=== PATIENT | male | born 1960 | race Caucasian/White ===

== ENCOUNTER 2018-01-21 16:54 | Outpatient (REF) | payer OTHER, SELFPAY ==
[2018-01-21 21:07] LABS: Anion Gap 9.7 mmol/L (3-11); BUN 23 mg/dL (7-18); CO2 28.3 mmol/L (21.0-32.0); CREATININE 1.12 mg/dL (0.70-1.30); Calcium 9.1 mg/dL (8.5-10.1); Chloride 100 mmol/L (98-107); Cholesterol 123 mg/dL (50-200); Glucose 93 mg/dL (70-100); HDL Cholesterol 33 mg/dL (40-60); LDL CHOLESTEROL 75 mg/dL (<100); Potassium 3.8 mmol/L (3.5-5.1); Sodium 138 mmol/L (136-145); Triglyceride 127 mg/dL (30-150)
== END 2018-01-21 17:14 ==
LOC: NCHCN 16:54
PROVIDERS: PCP Internal Medicine; Visit Provider Internal Medicine
DX: I10 Essential (primary) hypertension (principal); E78.5 Hyperlipidemia, unspecified
CPT/HCPCS: 80048; 80061; 83721

== ENCOUNTER 2019-03-16 14:21 | Outpatient (REF) | payer OTHER, SELFPAY ==
[2019-03-16 22:37] LABS: Anion Gap 7.9 mmol/L (3-11); BUN 18 mg/dL (7-18); CO2 29.1 mmol/L (21.0-32.0); CREATININE 0.98 mg/dL (0.70-1.30); Calcium 9.5 mg/dL (8.5-10.1); Chloride 102 mmol/L (98-107); Glucose 98 mg/dL (70-100); Potassium 4.2 mmol/L (3.5-5.1); Sodium 139 mmol/L (136-145)
== END 2019-03-16 14:41 ==
LOC: NCHCN 14:21
PROVIDERS: PCP Internal Medicine; Visit Provider Internal Medicine
DX: I10 Essential (primary) hypertension (principal); E78.5 Hyperlipidemia, unspecified
CPT/HCPCS: 80048

== ENCOUNTER 2020-01-16 14:11 | Outpatient (CLI) | payer OTHER, SELFPAY ==
--- NOTE | 2020-01-16 | DI.US_ITS ---
EXAM: US LOWER EXTREMITY VENOUS RT CLINICAL HISTORY: PHLEBITIS I80.9. TECHNIQUE: Lower extremity venous ultrasound performed using grayscale, color-flow, and spectral Do ppler analysis. COMPARISON: No exams were available for comparison FINDINGS: The common femoral, femoral and popliteal veins demonstrate normal compressibility, augmentation, and color Doppler. The posterior tibial veins are patent. No saphenous vein thrombosis or other superfi cial venous thrombosis is seen. There is a 1.7 centimeter Lee's cyst. The area of the patient's p ain in the posterior calf, there is a dilated superficial varicosity which does not show thrombus. IMPRESSION: Small Lee's cyst. Dilated superficial calf vein. No evidence of DVT. DATA REPOSITORY:
== END 2020-01-16 14:31 ==
PROVIDERS: PCP Internal Medicine; Visit Provider Internal Medicine
DX: M71.21 Synovial cyst of popliteal space [Baker], right knee (principal); M79.661 Pain in right lower leg
CPT/HCPCS: 93971

== ENCOUNTER 2020-07-30 18:56 | Outpatient (REF) | payer OTHER, SELFPAY ==
[2020-07-30 22:04] LABS: HCT 43.6 % (40.0-50.0); HGB 14.9 g/dL (13.5-17.5); MCH 32.7 pg (27.0-33.0); MCHC 34.2 % (32.0-36.0); MCV 95.6 fL (80-95); MPV 9.2 fL (8.0-11.0); Platelet Count 207 10^3/uL (130-400); RBC 4.56 10^6/uL (4.36-5.78); RDW 11.9 % (11.8-14.1); RDW-SD 41.6 fL; WBC 6.28 10^3/uL (4.4-10.8)
[2020-07-30 22:39] LABS: Anion Gap 11.9 mmol/L (3-11); BUN 15 mg/dL (7-18); CO2 27.1 mmol/L (21.0-32.0); CREATININE 1.1 mg/dL (0.70-1.30); Calcium 9.2 mg/dL (8.5-10.1); Calculated LDL 110 mg/dL (<100); Chloride 102 mmol/L (98-107); Cholesterol 193 mg/dL (<200); Glucose 103 mg/dL (74-106); HDL Cholesterol 60 mg/dL (40-60); Potassium 3.7 mmol/L (3.5-5.1); Sodium 141 mmol/L (136-145); TSH 2.17 uIU/mL (0.36-3.74); Triglyceride 115 mg/dL (<150); Vitamin B12 339 pg/mL (193-986)
[2020-07-30 22:58] LABS: NT-proBNP 42 pg/mL (<300)
== END 2020-07-30 18:57 | disposition home or self-care (01) ==
LOC: NCHCN 18:56
PROVIDERS: PCP Internal Medicine; Visit Provider Internal Medicine
DX: R06.09 Other forms of dyspnea (principal); R03.0 Elevated blood-pressure reading, without diagnosis of hypertension; R20.2 Paresthesia of skin
CPT/HCPCS: 80048; 80061; 85027; 82607; 83880; 84443

== ENCOUNTER 2020-07-31 11:12 | Observation (INO) | payer OTHER, SELFPAY ==
[2020-07-31] VITALS (49 sets, daily range): BP systolic 110–160; BP diastolic 65–92; PULSE 56–84; RESP 14–20; TEMP 36.3–36.7; O2SAT 89–99
--- NOTE | 2020-07-31 11:00 | RT.EKG_ITS ---
APPROVED REPORT Exam: Resting ECG Patient Location: E HR:70 bpm ECG Measurements Heart Rate 70 AXIS KS 172 P 64 QRSd 110 QRS 61 QT 386 T 61 QTc 418 Conclusion Sinus rhythm...normal P axis, V-rate 60- 99
[2020-07-31 11:43] LABS: Abs Immature Grans 0.02 10^3/uL (0.0-0.06); Absolute Basophil Count 0.02 10^3/uL (0.0-0.2); Absolute Eosinophil Count 0.05 10^3/uL (0.0-0.7); Absolute Lymphocyte Count 1.23 10^3/uL (1.2-3.4); Absolute Monocyte Count 0.63 10^3/uL (0.1-0.8); Absolute Neutrophil Count 5.04 10^3/uL (1.2-6.7); Basophils % 0.3; Eosinophils % 0.7; HCT 43.7 % (40.0-50.0); HGB 15.3 g/dL (13.5-17.5); Immature Grans % 0.3; Lymphocytes % 17.6; MCH 32.8 pg (27.0-33.0); MCV 93.8 fL (80-95); MPV 8.8 fL (8.0-11.0); Neutrophils % 72.1; Nucleated RBC 0 %; Platelet Count 191 10^3/uL (130-400); RBC 4.66 10^6/uL (4.36-5.78); RDW 11.9 % (11.8-14.1); WBC 6.99 10^3/uL (4.4-10.8)
[2020-07-31 11:57] LABS: PTT Activated 24.1 sec (21.0-27.5); Prothrombin Time 9.6 sec (9.3-11.0)
[2020-07-31 11:59] LABS: ALT 37 U/L (16-63); AST 16 U/L (15-37); Albumin 4.3 g/dL (3.4-5.0); Alkaline Phosphatase 91 U/L (46-116); Anion Gap 10.5 mmol/L (3-11); BUN 15 mg/dL (7-18); Bilirubin, Total 0.8 mg/dL (0.2-1.0); CO2 27.5 mmol/L (21.0-32.0); Calcium 9.2 mg/dL (8.5-10.1); Chloride 97 mmol/L (98-107); Glucose 169 mg/dL (74-106); Magnesium 2.1 mg/dL (1.8-2.4); Potassium 3.8 mmol/L (3.5-5.1); Sodium 135 mmol/L (136-145); Total Protein 7.9 g/dL (6.4-8.2)
[2020-07-31 12:00] LABS: Troponin I < 0.05 ng/mL (<0.06)
--- NOTE | 2020-07-31 12:15 | DI.RAD_ITS ---
EXAM: XR CHEST 2V PA LATERAL CLINICAL HISTORY: chest tightness. TECHNIQUE: 2D digital imaging was performed. COMPARISON: CR CHEST 2 VIEWS PA,LAT from 07/24/2016 FINDINGS: Heart size is normal. The mediastinum is not widened. Lungs are clear. No infiltrates nor pleural effusions. Scalloping of the left hemidiaphragm is again noted. IMPRESSION: No acute pulmonary findings. DATA REPOSITORY: RADIATION DOSE DELIVERED:
--- NOTE | 2020-07-31 12:15 | RT.EKG_ITS ---
APPROVED REPORT Exam: Resting ECG Patient Location: E HR:72 bpm ECG Measurements Heart Rate 72 AXIS RI 179 P 50 QRSd 111 QRS 58 QT 404 T 58 QTc 442 Conclusion Sinus rhythm...normal P axis, V-rate 60- 99
[2020-07-31] MEDS: Aspirin 325 MG TAB PO (13:15)
[2020-07-31 14:00] LABS: Troponin I < 0.05 ng/mL (<0.06)
--- NOTE | 2020-07-31 14:37 | ED.GENADUL_ITS ---
Discharge Plan Disposition Condition: Good Discharge Details Chief Complaint: Chest Pain Admit Date/Time: 07/31/20 15:15 Admit Provider: Codie Mart Attending Provider: Codie Mart Primary Care Provider: Lambert Gates ED Provider: Maulik Kumari Discharge Instructions Activity:: Activity as Tolerated Equipment/Supplies:: No Equipment Needed Diet:: Low Sodium Discharge Orders Discharge Orders: Discharge Order (Routine); Ordered 08/01/20 Ordered By: Brit Ortiz Discharge Data Discharge Date/Time-TO BE ENTERED AT DEPARTURE: 07/31/20 15:46 Medical Decision Making 59-year-old male with history of hyperlipidemia, hypertension, positive family history for coronary artery disease, here with chest tightness intermittent over the past 1 to 2 weeks. Discomfort and radiating to left shoulder and upper arm.. Concern for ACS. Consider musculoskeletal. Low likelihood for pulmonary embolism.. Screening ECG reviewed and interpreted by me: No STEMI, please see report. Labs reviewed and initial troponin negative. D-dimer negative. Chest x-ray was reviewed and interpreted by radiology: Negative for acute process. Normal mediastinum. I called and spoke with on-call hospitalist, discussed ED presentation course. Hospitalist will accept patient for admission. Care transition to hospitalist service at time of admission. Diagnosis: Chest pain, hypertension Disposition: Admission Condition: Serious Lab Data Lab results reviewed: Yes I reviewed the patient's lab results. HPI General Date/Time Provider Initiated Documentation: 07/31/20 11:27 . Limitations to Documentation: no limitations . HPI Narrative: 59-year-old male with history of hypertension, hyperlipidemia, positive family history for coronary artery disease, here with chief complaint of chest pain. Patient notes chest pain for the past 1 to 2 weeks, intermittent, described as a tightness, moderate, no modifiers. Discomfort intermittently radiates to neck left shoulder and upper arm. No associated shortness of breath. No associated leg swelling or calf pain. No recent immobility. Patient does note associated general malaise with some mild intermittent dizziness. Covid screening negative. Related Data Home Medications Medication Instructions Recorded Confirmed amlodipine 10 mg PO DAILY 07/31/20 07/31/20 atorvastatin 40 mg PO DAILY 07/31/20 07/31/20 hydrochlorothiazide 12.5 mg PO DAILY 07/31/20 07/31/20 Allergies Allergy/AdvReac Type Severity Reaction Status Date / Time No Known Allergies Allergy Unverified 07/31/20 11:29 General Stated Complaint: Chest Pain OLIVERIO: 2 Review of Systems All systems reviewed & are unremarkable except as noted in HPI and below Constitutional Constitutional: Denies fever(s) Cardiovascular Cardiovascular: Reports chest pain and Denies dyspnea Respiratory Respiratory: Denies dyspnea PFSH Medical History Hyperlipidemia Hypertension Right knee DJD Surgical History S/P right knee arthroscopy Family History Other Heart disease Social History Smoking/Tobacco Use Status: Never Smoking risk assessment performed?: Yes Alcohol Intake: current Alcohol Intake frequency: 0-2 drinks per day Alcohol type: beer Substance use type: does not use Household members: spouse Exam Const General: cooperative and no acute distress HENMT Head: normocephalic Mouth: moist mucous membranes Eyes Conjunctivae: normal conjunctivae Sclera: normal sclerae Neck Neck: trachea midline and supple Resp Auscultation: clear to auscultation bilaterally, no rales, no rhonchi and no wheezes Cardio Rate: regular rate and not tachycardic Rhythm: regular rhythm GI Palpation: soft, not firm, no guarding, no masses, not rigid and nontender Skin General skin exam: no rashes or lesions noted Neuro General: patient alert, patient awake, patient oriented x3 and tone normal Extrem General: no calf tenderness and no edema Psych Appearance: grossly normal Mental Status: mental status grossly normal Speech and Movement: speech and movement normal Course Vital Signs Vital signs: Vital Signs Respiratory Rate 17 07/31/20 11:16 Pulse Oximetry 98 07/31/20 11:16 Temperature 36.7 C 07/31/20 11:24 Temperature Source Skin 07/31/20 11:24 Pulse 73 07/31/20 12:30 Pulse 77 07/31/20 12:40 Respiratory Rate 18 07/31/20 12:40 Respiratory Effort Non-Labored 07/31/20 11:31 Respiratory Depth Normal 07/31/20 11:31 Respiratory Pattern Normal 07/31/20 11:31 Blood Pressure 142/90 H 07/31/20 12:30 Blood Pressure Mean 103 07/31/20 12:30 Blood Pressure Position Supine 07/31/20 11:24 Pulse Oximetry 89 L 07/31/20 12:40 Oxygen Delivery Method Room Air 07/31/20 11:24 Oxygen Flow Rate 0 07/31/20 11:24 Pain Level 3 07/31/20 11:24 Lab/Test Results Lab/Test Results: Laboratory Tests Range/Units 07/31/20 07/31/20 07/31/20 11:30 11:30 11:30 WBC (4.4-10.8) 10^3/uL 6.99 RBC (4.36-5.78) 10^6/uL 4.66 Hgb (13.5-17.5) g/dL 15.3 Hct (40.0-50.0) % 43.7 MCV (80-95) fL 93.8 MCH (27.0-33.0) pg 32.8 MCHC (32.0-36.0) % 35.0 RDW (11.8-14.1) % 11.9 Plt Count (130-400) 10^3/uL 191 MPV (8.0-11.0) fL 8.8 Immature Gran % 0.3 Neutrophils % 72.1 Lymphocytes % 17.6 Monocytes % 9.0 Eosinophils % 0.7 Basophils % 0.3 Nucleated RBC % % 0 Absolute Neutrophils (1.2-6.7) 10^3/uL 5.04 Absolute Lymphocytes (1.2-3.4) 10^3/uL 1.23 Absolute Monocytes (0.1-0.8) 10^3/uL 0.63 Absolute Eosinophils (0.0-0.7) 10^3/uL 0.05 Absolute Basophils (0.0-0.2) 10^3/uL 0.02 PT (9.3-11.0) sec 9.6 INR (0.9-1.1) 1.0 APTT (21.0-27.5) sec 24.1 Sodium (136-145) mmol/L 135 L Potassium (3.5-5.1) mmol/L 3.8 Chloride (98-107) mmol/L 97 L Carbon Dioxide (21.0-32.0) mmol/L 27.5 Anion Gap (3-11) mmol/L 10.5 BUN (7-18) mg/dL 15 Creatinine (0.70-1.30) mg/dL 1.0 Estimated GFR/1.73 m2 (mL/min/1.73m2) >= 60.00 Glucose (74-106) mg/dL 169 H Calcium (8.5-10.1) mg/dL 9.2 Magnesium (1.8-2.4) mg/dL 2.1 Total Bilirubin (0.2-1.0) mg/dL 0.8 AST (15-37) U/L 16 ALT (16-63) U/L 37 Alkaline Phosphatase (46-116) U/L 91 Troponin I (<0.06) ng/mL < 0.05 Total Protein (6.4-8.2) g/dL 7.9 Albumin (3.4-5.0) g/dL 4.3 Range/Units 07/31/20 13:35 WBC (4.4-10.8) 10^3/uL RBC (4.36-5.78) 10^6/uL Hgb (13.5-17.5) g/dL Hct (40.0-50.0) % MCV (80-95) fL MCH (27.0-33.0) pg MCHC (32.0-36.0) % RDW (11.8-14.1) % Plt Count (130-400) 10^3/uL MPV (8.0-11.0) fL Immature Gran % Neutrophils % Lymphocytes % Monocytes % Eosinophils % Basophils % Nucleated RBC % % Absolute Neutrophils (1.2-6.7) 10^3/uL Absolute Lymphocytes (1.2-3.4) 10^3/uL Absolute Monocytes (0.1-0.8) 10^3/uL Absolute Eosinophils (0.0-0.7) 10^3/uL Absolute Basophils (0.0-0.2) 10^3/uL PT (9.3-11.0) sec INR (0.9-1.1) APTT (21.0-27.5) sec Sodium (136-145) mmol/L Potassium (3.5-5.1) mmol/L Chloride (98-107) mmol/L Carbon Dioxide (21.0-32.0) mmol/L Anion Gap (3-11) mmol/L BUN (7-18) mg/dL Creatinine (0.70-1.30) mg/dL Estimated GFR/1.73 m2 (mL/min/1.73m2) Glucose (74-106) mg/dL Calcium (8.5-10.1) mg/dL Magnesium (1.8-2.4) mg/dL Total Bilirubin (0.2-1.0) mg/dL AST (15-37) U/L ALT (16-63) U/L Alkaline Phosphatase (46-116) U/L Troponin I (<0.06) ng/mL < 0.05 Total Protein (6.4-8.2) g/dL Albumin (3.4-5.0) g/dL
[2020-07-31 14:59] LABS: D-Dimer 444 ng/mlFEU (<500)
[2020-07-31 15:51] LABS: Source Nasal/Nares
--- NOTE | 2020-07-31 15:51 | NUR.NOTE ---
Nursing Note: Shahla [phone]
[2020-07-31 16:04] LABS: NT-proBNP 33 pg/mL (<300)
[2020-07-31] MEDS: Normal Saline Flush 10 ML SYR IVP (16:42)
[2020-07-31] MEDS: Normal Saline 1,000 ML 125 ML IV (16:42)
--- NOTE | 2020-07-31 17:35 | W.PM.HP.N ---
Date of service: 07/31/20 Time of Service: 17:35 Assessment and Plan Assessment and plan (1) Chest pain: Status: Acute Assessment and plan: He has a classic story for chest pain with radiation to the left arm. It is intermittent and has been going on for several days now. He did try stopping intake of alcohol to see if that made a difference but it did not. 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 There are no findings specific to that on exam other than some numbness and tingling in his fourth and fifth digit. This may be pain referred from that. By history and exam it does not appear to be cardiac. Plan is to check a third troponin we will get an MPI and echocardiogram in the a.m. Cardiac consultation if any of these show abnormality. Otherwise should be okay for discharge tomorrow. (2) Hyperlipidemia: Status: Acute Assessment and plan: Continue the Lipitor. (3) Hypertension: Status: Chronic Assessment and plan: Blood pressure on presentation was high but is now normalized at 110/74. Continue present meds. History of Present Illness History of Present Illness Chief Complaint: Chest pain rule out [place] Narrative: 59-year-old male presents with about a week and a half ago of chest pain across his chest and left arm discomfort. He saw his PCP yesterday and reminded him about it. He thought they was related to his ulnar nerve because he rests it constantly while working on the computer. His plan was to recheck that in August 2020. Today the pain was worse and he presented to the emergency room. In the emergency room his EKG was normal, chest x-ray normal, initial troponin less than 0.05. His laboratory work-up was unremarkable. Because of a positive family history, TX in a relative in his 50s, he is admitted to observation for further rule out of [place] and further work-up in the morning. Review of Systems Narrative: He has been generally well. He fairly active. 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 His chest pain appears to be intermittent but not associated with exercise. He has never had a myocardial infarction. He has no respiratory problems. He does not admit to any GI or problems. He has had arthroscopy on his right knee and does have intermittent knee pain. He has had injections in his right knee with Orthovisc. No neurologic problems. PFSH Medical History (Updated 07/31/20 @ 17:49 by Rudi Vilchis MD) Hyperlipidemia Hypertension Right knee DJD Surgical History (Updated 07/31/20 @ 17:48 by Rudi Vilchis MD) S/P right knee arthroscopy Family History (Updated 07/31/20 @ 17:48 by Rudi Vilchis MD) Other Heart disease Social History (Updated 07/31/20 @ 17:49 by Rudi Vilchis MD) Smoking/Tobacco Use Status: Never Smoking risk assessment performed?: Yes Alcohol Intake: current Alcohol Intake frequency: 0-2 drinks per day Alcohol type: beer Substance use type: does not use Household members: spouse Meds Home Medications and Allergies Allergies Allergy/AdvReac Type Severity Reaction Status Date / Time No Known Allergies Allergy Unverified 07/31/20 11:29 Home Medications Medication Instructions Recorded Confirmed Type amlodipine 10 mg PO DAILY 07/31/20 07/31/20 History atorvastatin 40 mg PO DAILY 07/31/20 07/31/20 History hydrochlorothiazide 12.5 mg PO DAILY 07/31/20 07/31/20 History Exam Narrative Exam Narrative: On exam he is well kempt and in no apparent distress. He is alert and coherent. He gives a good history. His posterior lung exam sounds completely clear on the right and left. His heart sounds are regular and there is no apparent murmur. His abdomen is overall soft and nontender. The lower extremities show no evidence of edema. He has normal musculature and good symmetry. Neurologically there is not appear to be any focal deficits. Results Imaging Chest x-ray: report reviewed (Normal) EKG: report reviewed (Sinus rhythm at [address] to T changes.) Labs Result diagrams: 07/31/20 11:30 07/31/20 11:30 Labs: Laboratory Results - last 24 hr 07/31/20 07/31/20 07/31/20 11:30 11:30 11:30 WBC 6.99 RBC 4.66 Hgb 15.3 Hct 43.7 MCV 93.8 MCH 32.8 MCHC 35.0 RDW 11.9 Plt Count 191 MPV 8.8 Immature Gran % 0.3 Neutrophils % 72.1 Lymphocytes % 17.6 Monocytes % 9.0 Eosinophils % 0.7 Basophils % 0.3 Nucleated RBC % 0 Absolute Neutrophils 5.04 Absolute Lymphocytes 1.23 Absolute Monocytes 0.63 Absolute Eosinophils 0.05 Absolute Basophils 0.02 PT 9.6 INR 1.0 APTT 24.1 D-Dimer Sodium 135 L Potassium 3.8 Chloride 97 L Carbon Dioxide 27.5 Anion Gap 10.5 BUN 15 Creatinine 1.0 Estimated GFR/1.73 m2 >= 60.00 Glucose 169 H Calcium 9.2 Magnesium 2.1 Total Bilirubin 0.8 AST 16 ALT 37 Alkaline Phosphatase 91 Troponin I < 0.05 NT-Pro-B Natriuret Pep 33 Total Protein 7.9 Albumin 4.3 COVID-19 Source 07/31/20 07/31/20 07/31/20 13:35 13:35 15:40 WBC RBC Hgb Hct MCV MCH MCHC RDW Plt Count MPV Immature Gran % Neutrophils % Lymphocytes % Monocytes % Eosinophils % Basophils % Nucleated RBC % Absolute Neutrophils Absolute Lymphocytes Absolute Monocytes Absolute Eosinophils Absolute Basophils PT INR APTT D-Dimer 444 Sodium Potassium Chloride Carbon Dioxide Anion Gap BUN Creatinine Estimated GFR/1.73 m2 Glucose Calcium Magnesium Total Bilirubin AST ALT Alkaline Phosphatase Troponin I < 0.05 NT-Pro-B Natriuret Pep Total Protein Albumin COVID-19 Source Nasal/nares Last Vital Signs Temp 36.3 C L 07/31/20 15:59 Pulse 64 07/31/20 16:22 Resp 18 07/31/20 15:59 BP 110/74 07/31/20 15:59 Pulse Ox 96 07/31/20 15:59 COVID-19 Screening Have you, or household traveled for leisure in last 14 days?: No Had IN PERSON contact w/suspected or confirmed C-19 person: No
[2020-07-31] MEDS: Enoxaparin 40 MG/0.4 ML SYR SC (17:59)
[2020-07-31 18:23] LABS: COVID-19 PCR Negative (Negative)
[2020-07-31 20:54] LABS: Troponin I < 0.05 ng/mL (<0.06)
--- NOTE | 2020-08-01 | DI.US_ITS ---
APPROVED REPORT EXAM: Comprehensive 2D, Doppler, and color-flow Echocardiogram Patient Location: In-Patient Room/Bed: [facility] Data Review Specialist: Lilibeth Sinha RDCS (AE) Indications: Chest pain Other Information Study Quality: Adequate Conclusion Left Ventricle : The left ventricle is normal size. The left ventricular systolic function is normal. The left ventricular ejection fraction is within the normal range. There is normal left ventricular wall thickness. There is normal LV segmental wall motion. The left ventricular diastolic function is normal. LVEF is 60%. Right Ventricle : The right ventricle is normal size. The right ventricular systolic function is norm al. The RVSP is 28.4 mmHg. Valves: There are no hemodynamically significant valvular lesions. Great Vessels : The aortic root is normal in size. The ascending aorta is mildly dilated. IVC is norm al in size and collapses >50% with inspiration. Please see remainder of study for further details. Wall motion Left Ventricle The left ventricle is normal size. The left ventricular systolic function is normal. The left ventric ular ejection fraction is within the normal range. There is normal left ventricular wall thickness. T here is normal LV segmental wall motion. The left ventricular diastolic function is normal. There is no ventricular septal defect visualized. LVEF is 60%. Right Ventricle The right ventricle is normal size. The right ventricular systolic function is normal. The RVSP is 28 .4 mmHg. Atria The left atrium size is normal. The right atrium size is normal. The interatrial septum is intact wit h no evidence for an atrial septal defect. Atrial septal aneurysm is present. Aortic Valve The aortic valve is normal in structure. Aortic valve is trileaflet. There is no aortic valvular sten osis. No aortic regurgitation is present. Mitral Valve The mitral valve is normal in structure. No evidence of mitral valve stenosis. Trace mitral regurgita tion. Tricuspid Valve The tricuspid valve is normal in structure. There is no tricuspid valve stenosis. Trace tricuspid reg urgitation. Pulmonic Valve The pulmonary valve is normal in structure. There is no pulmonic valvular stenosis. There is no pulmo charles valvular regurgitation. Great Vessels The aortic root is normal in size. The ascending aorta is mildly dilated. IVC is normal in size and c ollapses >50% with inspiration. Pericardium There is no pericardial effusion. 2D Dimensions IVSD d PLAX 0.96 cm M: 0.6-1.2 LV Vol A2C d MOD 142.5 mL LVPW d PLAX 0.90 cm M: 0.6 - 1.2 LV Vol A4C d MOD 113.2 mL LVID d PLAX 4.79 cm M: 4.2 - 5.8 LA Area A4C s MOD 14.03 cm2 LVDs 3.20 cm M: 2.5 - 4.0 LA Area A2C s MOD 16.98 cm2 Ao Root d 3.06 cm M: 3.1 - 3.7 LV EF A4C MOD 59.7 % RA Area A4C 14.72 cm2 LV EF A2C MOD 62.9 % Ao Asc Diam d 3.62 cm M: 2.6 - 3.4 LV EF Biplane MOD 61.2 % LV EF Teichholz 60.4 % SV 78.38 mL LVEF (Lott's) 61.16 % M: 52 - 72 LV Volume 128.15 mL M: 62 - 150 LV Volume Index 60.44 mL/m2 M: 34 - 74 LV Vol Biplane MOD 128.2 mL FS 32.20 % M-Mode TAPSE 2.94 cm (M/F) >1.7 LV Diastology MV E' medial 0.108 (>0.07 m/s) E/A Ratio 0.8 LV E/e MED 5.30 (<14) MV E Vmax 0.57 (0.4-1.3 m/s) MV E' lateral 0.098 (>0.1 m/s) MV A Vmax 0.75 (0.4-1.3 m/s) LV E/e LAT 5.85 (<14) MV E/A Ratio 0.76 MV E/E' medial 5.32 MV E/E' lateral 5.85 Aortic Valve LVOT Area 3.63 cm2 AoV Area Vmax 2.73 cm2 LVOT Vmax 1.17 m/s AVANI Mean Marquis. 2.46 cm2 LVOT Mean Marquis. 0.75 m/s LVOT Peak Grad 5.4 mmHg LVOT Mean Grad 2.7 mmHg LVOT VTI 0.280 m LVOT Diam s 2.15 cm AoV Vmax 1.55 m/s Velocity Ratio 0.75 AoV Mean Marquis. 1.11 m/s AoV Peak Grad 9.6 mmHg LVOT SV 101.81 mL AoV Mean Grad 5.4 mmHg AoV VTI 0.321 m AoV Area VTI 3.17 cm2 Mitral Valve MV DT 268 (160-240 msec) MR Vmax 4.08 m/s MV PHT 78 msec MR VTI 1.263 m MV Area PHT 2.83 cm2 MR Peak Grad 66.7 mmHg MV VTI 0.262 m MR Mean Grad 54.3 mmHg MV VTI Annulus 0.285 m MV Area VTI 4.25 (4.0-6.0 cm2) Pulmonary Valve PV Vmax 1.10 (0.5-1.5 m/s) RVOT Peak Gr. 2.04 mmHg PV Peak Grad 4.8 mmHg RVOT Mean Gr. 1.05 mmHg PV Mean Grad 2.6 mmHg RVOT VTI 0.168 m PV VTI 0.242 m RVOT Vmax 0.72 m/s Tricuspid Valve TR Peak Grad 25.3 mmHg TR Vmax 2.52 m/s RA Pressure 3.00 mmHg RVSP (TR) 28.4 mmHg
[2020-08-01] MEDS: Normal Saline 1,000 ML 125 ML IV (00:06)
[2020-08-01 03:11] VITALS: BP 113/70; PULSE 55; RESP 18; TEMP 36.3; O2SAT 96
[2020-08-01 07:09] LABS: Anion Gap 8.4 mmol/L (3-11); BUN 14 mg/dL (7-18); CO2 28.6 mmol/L (21.0-32.0); CREATININE 0.9 mg/dL (0.70-1.30); Calcium 8.5 mg/dL (8.5-10.1); Calculated LDL 99 mg/dL (<100); Chloride 105 mmol/L (98-107); Cholesterol 166 mg/dL (<200); Glucose 103 mg/dL (74-106); HDL Cholesterol 49 mg/dL (40-60); Magnesium 2.1 mg/dL (1.8-2.4); Potassium 3.7 mmol/L (3.5-5.1); Sodium 142 mmol/L (136-145); TSH (W/Ref FT4) 2.07 uIU/mL (0.36-3.74); Triglyceride 94 mg/dL (<150)
[2020-08-01 07:12] LABS: Hemoglobin A1C 5.5 % (<5.7)
[2020-08-01 07:13] LABS: Troponin I < 0.05 ng/mL (<0.06)
[2020-08-01 07:29] VITALS: BP 155/93; PULSE 61; RESP 20; TEMP 36.8; O2SAT 98
--- NOTE | 2020-08-01 08:00 | DI.NM_ITS ---
APPROVED REPORT Exam: Exercise Treadmill Patient Location: In-Patient Room/Bed: 205 Ordering Provider:SARI BENITES, Contact Number: [phone] BMI: 31.45 Baseline Rhythm: Sinus Rhythm Indications: Chest pain Medical History Medical History: Hyperlipidemia, hypertension Cardiac Medications: Hydrochlorothiazide, atorvastatin, amlodipine Allergies: NKA Cardiac Risk Factors: Hyperlipidemia, hypertension, family hx Previous Cardiac Procedures: None Pretest Chest Pain Characteristics: None Exercise History: Sedentary Physical Disabilities: None Lung Sounds: Clear to auscultation Heart Sounds: Regular Stress Test Details Test: Exercise stress testing was performed using a Junaid protocol. Nuclear Acquisition: Rest Tc-99m/Stress Tc-99m 1 day Rest Isotope: Tc-99m Sestamibi. Dose: 12.4 Date: 08/01/2020 Injection Time: 0830 Stress Isotope: Tc-99m Sestamibi. Dose: 38.7 Date: 08/01/2020 Injection Time: 1028 HR Resting HR Supine: 62 bpm Max Heart Rate (APMHR): 160 bpm Resting HR Standin bpm Target HR (85% APMHR): 136 bpm Max HR Achieved: 143 bpm % of APMHR: 89 Recovery HR: 88 bpm HR response to stress: Normal HR response to stress BP Resting BP Supine: 144/88 mmHg Resting BP Standin/84 mmHg Max BP: 174/88 mmHg Recovery BP: 138/76 mmHg BP response to stress: Blunted blood pressure response to stress. ECG Resting ECG: Sinus Rhythm Ectopy: None Stress ECG: Sinus Tachycardia ST Change: No significant ST segment changes noted Arrhythmia: PAC couplet Recovery ECG: Sinus Rhythm Recovery ST Change: No significant ST segment changes noted Recovery Arrhythmia: None Clinical Reason for Termination: Fatigue Stress Symptoms: Dyspnea Exercise duration: 11 min16 sec Highest Stage Reached: Stage 4: 4.2 mph at 16% grade. Exercise capacity: 13.48 METs Rate Pressure Product: [id number] Stress ECG Conclusion 1. The patient exercised for 11 minutes (13 METS). Exercise was stopped due to fatigue. 2. Patient no symptoms suggestive of ischemia. 3. There is no evidence of ischemia on the ECG portion of the exam. Stress Test Summary STAGE Time (mins) Speed (mph) Grade (%) HR BP SYMPTOMS METS Supine 62 144/88 Standing 79 132/84 1 3 1.7 10 99 138/74 4.6 2 6 2.5 12 112 142/78 7 3 9 3.4 14 129 148/78 10.2 1 min recovery 135 138/68 3 min recovery 109 174/88 6 min recovery 95 170/80 9 min recovery 88 138/76 MPI Conclusion The ejection fraction was 54% with stress. There were no wall motion abnormalities. There was no evidence of ischemia on the imaging portion exam. This represents a normal SPECT stress test.
--- NOTE | 2020-08-01 09:09 | PDOC.CMIN ---
- If Service Date Differs Date of service: 08/01/20 Time of Service: 09:09 Care Management Initial Assess REASON FOR HOSPITALIZATION:: Chest Pain PAST MEDICAL HISTORY/PAST SURGICAL HISTORY:: Hyperlipidemia, hypertension, right knee DJD, right knee arthroscopy PREVIOUS FUNCTIONAL STATUS/SOCIAL/FAMILY SUPPORTS:: Ced resides in [facility] with his , Shahla. He is independent at baseline in the community. CURRENT FUNCTIONAL STATUS:: Ced will have a stress test this afternoon to determine further care needs.
[2020-08-01 11:28] VITALS: BP 127/79; PULSE 76; RESP 18; TEMP 37.4; O2SAT 96
--- NOTE | 2020-08-01 11:58 | W.PM.DS.N ---
Date of service: 08/01/20 Time of Service: 12:00 DS: Diagnosis Discharge Diagnosis (1) Chest pain: Start date: 08/01/20 Start time: 12:00 Status: Resolved Asessment and Plan: Off and on for the past week and half with radiation to the left arm. He did try stopping intake of alcohol to see if that made a difference but it did not. 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 There are no findings specific to that on exam other than some numbness and tingling in his fourth and fifth digit. This may be pain referred from that. Stress test was negative for ischemia, follow up with PCP ini 1-2 weeks (2) Hyperlipidemia: Start date: 08/01/20 Start time: 13:07 Status: Chronic Asessment and Plan: Continue home medication (3) Hypertension: Start date: 08/01/20 Start time: 13:07 Status: Chronic Asessment and Plan: Continue home medication above case discussed with Dr. Mart who is in agreement. Discharge Plan Disposition Patient Disposition: HOME Condition: Good Discharge Details Reason For Visit: CHEST PAIN Admit Date/Time: 07/31/20 15:15 Admit Provider: Codie Mart Attending Provider: Codie Mart Primary Care Provider: Lambert Gates [facility] Course Hospital Course: 59-year-old male presents with about a week and a half ago of chest pain across his chest and left arm discomfort. He saw his PCP day before admission and reminded him about it. He thought it was related to his ulnar nerve because he rests it constantly while working on the computer. His plan was to recheck that in August 2020. The pain got worse and he presented to the emergency room day of admission. In the emergency room his EKG was normal, chest x-ray normal, initial troponin less than 0.05. His laboratory work-up was unremarkable. Because of a positive family history, SD in a relative in his 50s, he is admitted to observation for further rule out of SD and further work-up. Stress test done negative for ischemia, patient is chest pain free. No SOB, N/V/D. Recommend baby aspirin daily due to family history, otherwise follow up with PCP for further management. He does admit to worsening diet. This could be GERD. will defer to PCP. Follow up in 2 weeks. Home Meds and New Rx's Prescriptions: Continued atorvastatin 40 mg tablet 40 mg PO DAILY RF: 0 amlodipine 10 mg tablet 10 mg PO DAILY RF: 0 hydrochlorothiazide 12.5 mg tablet 12.5 mg PO DAILY RF: 0 Discharge Instructions Instructions: Chest Pain (DC) Additional Instructions: Take 81 mg baby aspirin daily due to having high blood pressure and high cholesterol along with family history Stress test was negative. Follow up with PCP for further work up of Chest pain if it continues in 2 weeks Activity:: Activity as Tolerated Equipment/Supplies:: No Equipment Needed Diet:: Low Sodium Discharge Orders Discharge Orders: Discharge Order (Routine); Ordered 08/01/20 Ordered By: Brit Ortiz DS: Summary Time Spent with Patient providing and/or coordinating discharge services: Greater than 30 minutes (approx 45 mins discharge time) Status at Discharge Functional status at discharge: independent ambulation Overall status at discharge: patient is back to baseline Mental Status: mental status grossly normal Speech and Movement: speech and movement normal Mood: congruent mood Affect: normal affect Exam Narrative Exam Narrative: On exam he is well kempt and in no apparent distress. He is alert and coherent. He gives a good history. His posterior lung exam sounds completely clear on the right and left. His heart sounds are regular and there is no apparent murmur. His abdomen is overall soft and nontender. The lower extremities show no evidence of edema. He has normal musculature and good symmetry. Neurologically there is not appear to be any focal deficits. Psych Mental Status: mental status grossly normal Speech and Movement: speech and movement normal Mood: congruent mood Affect: normal affect DS: Data Vitals/I&O Vitals and I&O: Vital Signs Temperature 37.4 C 08/01/20 11:28 Temperature Source Temporal Artery Scan 08/01/20 11:28 Pulse 76 08/01/20 11:28 Pulse Rhythm Regular 07/31/20 16:04 Pulse 63 07/31/20 15:31 Respiratory Rate 18 08/01/20 11:28 Respiratory Effort Non-Labored 08/01/20 08:49 Respiratory Depth Normal 08/01/20 08:49 Respiratory Pattern Normal 08/01/20 08:49 Blood Pressure 127/79 08/01/20 11:28 Blood Pressure Mean 98 07/31/20 15:31 Blood Pressure Position Supine 07/31/20 11:24 Pulse Oximetry 96 08/01/20 11:28 Oxygen Delivery Method Room Air 08/01/20 11:28 Oxygen Flow Rate 0 08/01/20 11:28 Pain Level 0 08/01/20 11:28 Comment 07/31/20 15:59 Intake & Output 07/31/20 07/31/20 08/01/20 11:59 23:59 11:59 Intake Total 740 / 740 1850 / 1850 Balance 740 / 740 1850 / 1850 Weight 96.615 kg 96.615 kg 101.65 kg Intake: IV 1850 / 1850 Oral 740 / 740 Other: Urine Color Yellow Urine Appearance Clear Clear Comment Patient voided in toliet indepndently, CORRECTIONAL CLASSIFICATION COUNSELOR did not witness. Voiding Methods Toilet Toilet Data Completed and Pending Completed studies during hospitalization [Text1]: Exam(s) a RAD:XR chest 2V PA & lateral EXAM: XR CHEST 2V PA LATERAL CLINICAL HISTORY: chest tightness. TECHNIQUE: 2D digital imaging was performed. COMPARISON: CR CHEST 2 VIEWS PA,LAT from 07/24/2016 FINDINGS: Heart size is normal. The mediastinum is not widened. Lungs are clear. No infiltrates nor pleural effusions. Scalloping of the left hemidiaphragm is again noted. IMPRESSION: No acute pulmonary findings. Indications: Chest pain Other Information Study Quality: Adequate Conclusion Left Ventricle : The left ventricle is normal size. The left ventricular systolic function is normal. The left ventricular ejection fraction is within the normal range. There is normal left ventricular wall thickness. There is normal LV segmental wall motion. The left ventricular diastolic function is normal. LVEF is 60%. Right Ventricle : The right ventricle is normal size. The right ventricular systolic function is normal. The RVSP is 28.4 mmHg. Valves: There are no hemodynamically significant valvular lesions. Great Vessels : The aortic root is normal in size. The ascending aorta is mildly dilated. IVC is normal in size and collapses >50% with inspiration. Please see remainder of study for further details. Wall motion Labs on day of discharge: Labs from last 24 hours 08/01/20 08/01/20 07/31/20 06:35 06:35 20:10 PT INR APTT D-Dimer Sodium 142 Potassium 3.7 Chloride 105 Carbon Dioxide 28.6 Anion Gap 8.4 BUN 14 Creatinine 0.9 Estimated GFR/1.73 m2 >= 60.00 Glucose 103 D Hemoglobin A1c 5.5 Calcium 8.5 Magnesium 2.1 Total Bilirubin AST ALT Alkaline Phosphatase Troponin I < 0.05 < 0.05 NT-Pro-B Natriuret Pep Total Protein Albumin Triglycerides 94 Total Cholesterol 166 LDL Cholesterol, Calc 99 HDL Cholesterol 49 TSH 2.07 COVID-19 Source SARS-CoV-2 (PCR) 07/31/20 07/31/20 07/31/20 15:40 13:35 13:35 PT INR APTT D-Dimer 444 Sodium Potassium Chloride Carbon Dioxide Anion Gap BUN Creatinine Estimated GFR/1.73 m2 Glucose Hemoglobin A1c Calcium Magnesium Total Bilirubin AST ALT Alkaline Phosphatase Troponin I < 0.05 NT-Pro-B Natriuret Pep Total Protein Albumin Triglycerides Total Cholesterol LDL Cholesterol, Calc HDL Cholesterol TSH COVID-19 Source Nasal/nares SARS-CoV-2 (PCR) Negative 07/31/20 07/31/20 11:30 11:30 PT 9.6 INR 1.0 APTT 24.1 D-Dimer Sodium 135 L Potassium 3.8 Chloride 97 L Carbon Dioxide 27.5 Anion Gap 10.5 BUN 15 Creatinine 1.0 Estimated GFR/1.73 m2 >= 60.00 Glucose 169 H Hemoglobin A1c Calcium 9.2 Magnesium 2.1 Total Bilirubin 0.8 AST 16 ALT 37 Alkaline Phosphatase 91 Troponin I < 0.05 NT-Pro-B Natriuret Pep 33 Total Protein 7.9 Albumin 4.3 Triglycerides Total Cholesterol LDL Cholesterol, Calc HDL Cholesterol TSH COVID-19 Source SARS-CoV-2 (PCR) PFSH Medical History Hyperlipidemia Hypertension Right knee DJD Surgical History S/P right knee arthroscopy Family History Other Heart disease Social History Smoking/Tobacco Use Status: Never Smoking risk assessment performed?: Yes Alcohol Intake: current Alcohol Intake frequency: 0-2 drinks per day Alcohol type: beer Substance use type: does not use Household members: spouse
--- NOTE | 2020-08-01 14:07 | CHAPLAIN ---
Ced was sitting on the edge of his bed working on a laptop when I visited. He said he'd had several cardiac tests today and is in hopes of going home later today. 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 He's been working from home for about a year, along with his . He attends [employer], but not on a regular basis.
[2020-08-01 15:40] VITALS: PULSE 67
== END 2020-08-01 15:55 | disposition home or self-care (01) ==
LOC: ER 15:33 → MS 15:51
PROVIDERS: Admitting Provider Internal Medicine; Emergency Provider Student in an Organized Health Care Education/Training Program; PCP Internal Medicine; Visit Provider Internal Medicine
DX: R07.9 Chest pain, unspecified (principal); I10 Essential (primary) hypertension; E78.5 Hyperlipidemia, unspecified; M17.11 Unilateral primary osteoarthritis, right knee; Z82.49 Family history of ischemic heart disease and other diseases of the circulatory system
CPT/HCPCS: 36415; 78452; 80048; 80053; 80061; 87635; 93005; 99217; 99219; 99285; J1650; 71046; 83036; 83735; 83880; 84443; 84484; 85025; 85379; 85610; 85730; 93010; 93017; 93306

== ENCOUNTER 2021-05-28 01:38 | Outpatient (CLI) | payer OTHER, SELFPAY ==
--- NOTE | 2021-05-28 09:31 | DI.RAD_ITS ---
Exam(s) XR RIBS LT W PA LAT CHEST EXAM: XR RIBS LT W PA LAT CHEST CLINICAL HISTORY: LT SIDED RIB PAIN,R07.81 TECHNIQUE: COMPARISON: CR XR CHEST 2V PA LATERAL from 07/31/2020 FINDINGS: PA and lateral views of the chest were obtained in addition to five views of the left ribs. Ribs cooper ear normal. No pleural effusion or pneumothorax. The lungs are clear. Cardiac size is within rodney l limits. IMPRESSION: Negative examination of the chest and ribs. RADIATION DOSE DELIVERED: Total DLP
== END 2021-05-28 01:58 ==
LOC: DI 01:38
PROVIDERS: PCP Internal Medicine; Visit Provider Family Medicine
DX: R07.81 Pleurodynia (principal)
CPT/HCPCS: 71046; 71100

== ENCOUNTER 2021-12-26 18:03 | Outpatient (REF) | payer OTHER, SELFPAY ==
[2021-12-26 15:23] LABS: Abs Immature Grans 0.04 10^3/uL (0.0-0.06); Absolute Basophil Count 0.05 10^3/uL (0.0-0.2); Absolute Eosinophil Count 0.15 10^3/uL (0.0-0.7); Absolute Lymphocyte Count 1.96 10^3/uL (1.2-3.4); Absolute Monocyte Count 0.89 10^3/uL (0.1-0.8); Absolute Neutrophil Count 4.33 10^3/uL (1.2-6.7); Basophils % 0.7; HCT 47.7 % (40.0-50.0); HGB 16.7 g/dL (13.5-17.5); Immature Grans % 0.5; Lymphocytes % 26.4; MCH 32.7 pg (27.0-33.0); MCV 93 fL (80-95); MPV 9.2 fL (8.0-11.0); Neutrophils % 58.4; Platelet Count 221 10^3/uL (130-400); RBC 5.11 10^6/uL (4.36-5.78); RDW 11.6 % (11.8-14.1); RDW-SD 40.4 fL; WBC 7.42 10^3/uL (4.4-10.8)
[2021-12-26 15:44] LABS: ALT 31 U/L (16-63); AST 20 U/L (15-37); Albumin 4.4 g/dL (3.4-5.0); Alkaline Phosphatase 92 U/L (46-116); Anion Gap 11.1 mmol/L (3-11); BUN 16 mg/dL (7-18); Bilirubin, Total 0.6 mg/dL (0.2-1.0); CO2 26.9 mmol/L (21.0-32.0); CREATININE 0.9 mg/dL (0.70-1.30); Calcium 9.2 mg/dL (8.5-10.1); Chloride 99 mmol/L (98-107); Glucose 98 mg/dL (74-106); Lipase 123 U/L (73-393); Potassium 3.9 mmol/L (3.5-5.1); Sodium 137 mmol/L (136-145); Total Protein 7.8 g/dL (6.4-8.2)
== END 2021-12-26 18:04 | disposition home or self-care (01) ==
LOC: NCHCN 18:03
PROVIDERS: PCP Internal Medicine; Visit Provider Family Medicine
DX: M79.18 Myalgia, other site (principal)
CPT/HCPCS: 80053; 83690; 85025

== ENCOUNTER 2023-03-16 18:21 | Outpatient (REF) | payer OTHER, SELFPAY ==
[2023-03-16 20:32] LABS: HCT 45.5 % (40.0-50.0); HGB 15.4 g/dL (13.5-17.5); MCH 32.3 pg (27.0-33.0); MCHC 33.8 % (32.0-36.0); MCV 95 fL (80-95); MPV 9.2 fL (8.0-11.0); Platelet Count 224 10^3/uL (130-400); RBC 4.77 10^6/uL (4.36-5.78); RDW 11.8 % (11.8-14.1); RDW-SD 41.1 fL; WBC 7.29 10^3/uL (4.4-10.8)
[2023-03-16 20:41] LABS: Anion Gap 7.2 mmol/L (3-11); BUN 21 mg/dL (7-18); CO2 28.8 mmol/L (21.0-32.0); CREATININE 1.1 mg/dL (0.70-1.30); Calcium 9.7 mg/dL (8.5-10.1); Chloride 102 mmol/L (98-107); Estimated GFR 75.43 (mL/min/1.73m2); Glucose 94 mg/dL (74-106); Potassium 4.1 mmol/L (3.5-5.1); Sodium 138 mmol/L (136-145)
[2023-03-16 21:00] LABS: Hemoglobin A1C 5.6 % (<5.7)
== END 2023-03-16 18:22 | disposition home or self-care (01) ==
LOC: NCHCN 18:21
PROVIDERS: PCP Family Medicine; Visit Provider Family Medicine
DX: I10 Essential (primary) hypertension (principal); E66.9 Obesity, unspecified
CPT/HCPCS: 80048; 85027; 83036

== ENCOUNTER 2024-06-05 14:48 | Outpatient (REF) | payer OTHER, SELFPAY ==
--- OUTSIDE RECORDS SUMMARY | 2024-06-05 14:51 | XMS_ITS | Continuity of Care Document ---
Author Organization [facility] Ambulatory Clinics Address [address] [place] [address] Encounter [facility] NBR [id number] Date(s): 03/03/22 - 03/03/22 [facility] [address] [place], [place] [address] Encounter Diagnosis Bilateral primary osteoarthritis of knee(Discharge Diagnosis) - 03/03/22 Discharge Disposition: Home or Self Care Attending Physician: Mook Carrillo MD Allergies, Adverse Reactions, Alerts No Known Medication Allergies Assessment and Plan Future Appointments Functional Status 03/03/22 Other exposure to Infectious Disease Non e Medications atorvastatin 40 mg oral tablet 40 mg = 1 tab, Oral, Daily, # 30 tab, 0 Refill(s) Start Date: 03/03/22 Status: Ordered hydroCHLOROthiazide 25 mg oral tablet 25 mg = 1 tab, Oral, BID, 0 Refill(s) Start Date: 03/03/22 Status: Ordered ibuprofen 200 mg oral tablet 400 mg = 2 tab, Oral, every 4 hr, PRN as needed for pain, # 120 tab, 0 Refill(s) Start Date: 03/03/22 Status: Ordered Problem List Condition Confirmation Course Effective Dates Status H ealt Status Informant HTN (hypertension) Confirmed Active Bilateral primary osteoarthritis of knee Confirmed Active Vital Signs Most recent to oldest [Reference Range]: 1 Peripheral Pulse Rate [60-100 bpm] 70 bp m (03/03/22 12:05 PM) Blood Pressure [90-140/60-90 mmHg] 124/7 6mmHg (03/03/22 12:05 PM) Weight 104.33 kg (03/03/22 12:05 PM) Weight Measured (lbs) 230.008 lb (03/03/22 12:05 PM) Height 175.26 cm (03/03/22 12:05 PM) Height/Length Measured (inches) 69 inch (03/03/22 12:05 PM) BSA Measured 2.25 m2 (03/03/22 12:05 PM) Body Mass Index 33.97 kg/m2 (03/03/22 12:05 PM) Social History Social History Type Response Tobacco Never tobacco user T obacco Use:. Sex
--- OUTSIDE RECORDS SUMMARY | 2024-06-05 14:51 | XMS_ITS | Continuity of Care Document ---
Author Organization [facility] Ambulatory Clinics Address [address] [place] [address] Care Team Providers Care Superintendent Custodian Janitor Name Role Phone DIAMANTE DICKINSON Primary Care Physician [phone] Encounter [facility] NBR [id number] Date(s): 06/10/23 - 06/10/23 [facility] Ambulatory Clinics [address], [place] [address] Encounter Diagnosis History of right knee joint replacement(Discharge Diagnosis) - 06/10/23 Arthritis of knee, left(Discharge Diagnosis) - 06/10/23 Arthritis of knee, left(Discharge Diagnosis) - 06/10/23 History of total knee arthroplasty(Discharge Diagnosis) - 06/10/23 Discharge Disposition: Home or Self Care Attending Physician: Justyna Negro DO Referring Physician: DIAMANTE DICKINSON Allergies, Adverse Reactions, Alerts No Known Allergies Assessment and Plan Extracted from: Title:Office Visit Limited Author:Justyna jaramillo DO Date:06/10/23 1.??History of right knee rico int replacement??Z96.651 6 weeks status post right total knee doing very well.?? He is going to finish up physical therapy and progress his activity on the side.?? We will get him??scheduled??on the left as soon as??he is??certain of his preferred timing. Future Appointments Medications Albuterol (Eqv-ProAir HFA) 90 mcg/inh inhalation aerosol 2 puffs, Inhale, every 4 hr, PRN as needed for wheezing, 0 Refill(s) Start Date: 03/11/23 Status: Ordered amLODIPine 10 mg oral tablet 10 mg = 1 tab, Oral, Daily, 0 Refill(s) Start Date: 03/20/22 Status: Ordered atorvastatin 40 mg oral tablet 40 mg = 1 tab, Oral, Daily, 0 Refill(s) Start Date: 03/03/22 Status: Ordered benzonatate 100 mg oral capsule 100 mg = 1 cap, Oral, every 8 hr, PRN as needed for cough, 0 Refill(s) Start Date: 03/11/23 Status: Ordered betamethasone dipropionate, augmented 0.05% topical ointment See Instructions, 0 Refill(s) Start Date: 01/15/23 Status: Ordered hydroCHLOROthiazide 25 mg oral tablet 25 mg = 1 tab, Oral, Daily, 0 Refill(s) Start Date: 03/03/22 Status: Ordered ketoconazole 2% topical cream , APPLY TWICE DAILY TO AFFECTED AREAS ON THE FACE NEEDED, 0 Refill(s) Start Date: 01/15/23 Status: Ordered Tylenol 8 HR Arthritis Pain 650 mg oral tablet, extended release 650 mg = 1 tab, Oral, every 8 hr, # 50 tab, 0 Refill(s), Pharmacy: [facility], 175, cm,04/19/23 16:40:00 EST, Height, 102, kg, 04/19/23 16:50:00 EST, Weight Dosing Start Date: 04/26/23 Status: Ordered Problem List Condition Confirmation Course Effective Dates Status Health Status Informant Arthritis of right acromioclavicular joint Confirmed Active Colonic polyp Confirmed Active Derangement of medial meniscus due to injury of knee Confirmed Active Eczema Confirmed Active Hearing impaired 1 Confirmed Active HLD - Hyperlipidemia Confirmed Active HTN (hypertension) Confirmed Active Idiopathic osteoarthritis Confirmed Active Osteoarthritis of knee Confirmed Active Osteoarthritis of right knee joint Confirmed Active Bilateral primary osteoarthritis of knee Confirmed Active 1wears bilat aids Procedures Procedure Date Related Diagnosis Body Site Status Total Knee Arthroplasty (Right) 1 04/26/23 Completed Arthroscopy of knee 2 Com pleted Colonoscopy Completed 1auto-populated from documented surgical case 2x2 Vital Signs Most recent to oldest [Reference Range]: 1 Peripheral Pulse Rate [60-100 bpm] 88 bp m (06/10/23 1:34 PM) Blood Pressure [90-140/60-90 mmHg] 128/7 2mmHg (06/10/23 1:34 PM) Mean Arterial Pressure, Cuff [70-110 mmH g] 91 mmHg (06/10/23 1:34 PM) Social History Social History Type Response Tobacco Never tobacco user T obacco Use:. Sex Implantable Device List Procedure Provider Procedure Date Device Type Site Total Knee Arthroplasty Unknown 04/26/23 Unknown K nee R Device Identifier Serial Number Lot or Batch Number Manufacturing Date Expiration Date Distinct Identification Code MRI Safety Implantable Status Assigning Authority Unknown Unknown [id number] Unknown 09/06/32 Unknown Unknown Active Unknown Unknown Unknown [id number] Unknown 08/06/25 Unknown Unknown Active Unknown Unknown Unknown [id number] Unknown 02/02/28 Unknown Unknown Active Unknown Unknown Unknown [id number] Unknown 08/31/32 Unknown Unknown Active Unknown Unknown Unknown [id number] Unknown 07/10/27 Unknown Unknown Active Unknown Physician Outpatient Note * Justyna Negro, DO: PERFORM Event Display: Office Clinic Note Physician Authored Date: [id number] SIERRA MITCHELL :1960 Age:62 years Sex:Male Visit Date:06/10/2023 Primary Care Physician: DIAMANTE DICKINSON History of Present Illness 62-year-old male??6 weeks status post right total knee.?? Doing very well.?? He has well-established bilateral knee tricompartmental osteoarthritis that we were??going to take to surgery in a staged manner. Physical Exam He ambulates in the office with a normal gait unassisted.?? Right knee midline incision nicely healed. ??Full extension.?? 135 degrees of flexion.?? Good ligamentous stability. Assessment/Plan 1.??History of right knee joint replacement??Z96.651 6 weeks status post right total knee doing very well.?? He is going to finish up physical therapy and progress his activity on the side.?? We will get him??scheduled??on the left as soon as??he is??certain of his preferred timing. Problem List/Past Medical History Ongoing Arthritis of right acromioclavicular joint Bilateral primary osteoarthritis of knee Colonic polyp Derangement of medial meniscus due to injury of knee Eczema Hearing impaired HLD - Hyperlipidemia HTN (hypertension) Idiopathic osteoarthritis Osteoarthritis of knee Osteoarthritis of right knee joint Historical No qualifying data Medications Albuterol (Eqv-ProAir HFA) 90 mcg/inh inhalation aerosol, 2 puffs, Inhale, every 4 hr, PRN amLODIPine 10 mg oral tablet, 10 mg= 1 tab, Oral, Daily atorvastatin 40 mg oral tablet, 40 mg= 1 tab, Oral, Daily benzonatate 100 mg oral capsule, 100 mg= 1 cap, Oral, every 8 hr, PRN betamethasone dipropionate, augmented 0.05% topical ointment, See Instructions celecoxib 200 mg oral capsule, 200 mg= 1 cap, Oral, BID Ecotrin 325 mg oral delayed release tablet, 325 mg= 1 tab, Oral, BID hydroCHLOROthiazide 25 mg oral tablet, 25 mg= 1 tab, Oral, Daily ketoconazole 2% topical cream MiraLax oral powder for reconstitution, 17 g, Oral, Daily oxyCODONE 5 mg oral tablet, See Instructions, PRN oxyCODONE 5 mg oral tablet, See Instructions, PRN Tylenol 8 HR Arthritis Pain 650 mg oral tablet, extended release, 650 mg= 1 tab, Oral, every 8 hr Allergies No Known Allergies No Known Medication Allergies Electronically Signed on 06/10/23 02:05 PM Justyna Negro DO Patient Care team information Care Team Personnel Name: DIAMANTE DICKINSON Position: No Access Member Role: Primary Care Physician Address: Address: [address] [place] [address] [place] Care Team Related Persons Name: LATRICE MITCHELL
--- OUTSIDE RECORDS SUMMARY | 2024-06-05 14:51 | XMS_ITS | Continuity of Care Document ---
Author Organization [facility] Ambulatory Clinics Address [address] [place] [address] Care Team Providers Care Lead Consultant Name Role Phone DIAMANTE DICKINSON Primary Care Physician Encounter [facility] NBR [id number] Date(s): 06/10/23 - 06/10/23 [facility] Ambulatory Clinics [address] [place], [place] [address] Encounter Diagnosis Osteoarthritis of left knee(Discharge Diagnosis) - 06/10/23 Discharge Disposition: Home or Self Care Attending Physician: Justyna Negro DO Allergies, Adverse Reactions, Alerts No Known Allergies Assessment and Plan Extracted from: Title:Office Visit Limited Author:Justyna jaramillo DO Date:06/10/23 1.??Osteoarthritis of left k nee??M17.12 End-stage left knee tricompartmental osteoarthritis with [id number] changes that has failed conservative care as outlined above. ??He is indicated at this time for left total knee arthroplasty.?? We reviewed his images together as well as models and perioperative protocols, restratification and reasonable postop expectations.?? Will get him on the schedule at his convenience. Future Appointments Medications Albuterol (Eqv-ProAir HFA) 90 [...] hr, # 50 tab, 0 Refill(s), Pharmacy: [facility], 175, cm,04/19/23 16:40:00 EST, Height, 102, [...] Completed 1auto-populated from documented surgical case 2x2 Social History Social History Type Response Tobacco Never tobacco user T obacco Use:. Sex Implantable Device List Procedure Provider Procedure Date Device Type Site Total Knee Arthroplasty Unknown 04/26/23 Unknown K nee R Device Identifier Serial Number Lot or Batch Number Manufacturing Date Expiration Date Distinct Identification Code MRI Safety Implantable Status Assigning Authority Unknown Unknown [id number] Unknown 09/06/32 Unknown Unknown Active Unknown Unknown Unknown [id number] Unknown 08/06/25 Unknown Unknown Active Unknown Unknown Unknown [id number] Unknown 02/02/28 Unknown Unknown Active Unknown Unknown Unknown [id number] Unknown 08/31/32 Unknown Unknown Active Unknown Unknown Unknown [id number] Unknown 07/10/27 Unknown Unknown Active Unknown Physician Outpatient Note * Justyna Negro, DO: PERFORM Event Display: Office Clinic Note Physician Authored Date: [id number] PAULA SIERRA Viviane :1960 Age:62 years Sex:Male Visit Date:06/10/2023 Primary Care Physician: DIAMANTE DICKINSON History of Present Illness This patient??had advanced bilateral knee tricompartmental osteoarthritis??that??had been treated with activity modification, bracing, injections, nonsteroidals and??Tylenol.?? That treatment had failed??long ago after??many years.?? He was set up for staged??bilateral total knees. ??He has now??recovered sufficiently from his right total knee??that he??would like to proceed with left total knee. Review of Systems Constitutional:?No??fevers,?No??chills,?No??sweats Eye:?No??recent visual problems ENT:?No??ear pain,?No??nasal congestion,?No??sore throat Respiratory:?No??shortness of breath,?No??cough Cardiovascular:?No??Chest pain,?No??palpitations,?No??syncope Gastrointestinal:?Nonausea,?No??vomiting,?No??diarrhea Genitourinary:?No??hematuria Jalen/Lymph:?No??bruising tendency,?No??swollen lymph glands Endocrine:?No??excessive thirst,??No??excessive hunger Musculoskeletal:??No??back pain,??No??neck pain,??Positive for??joint pain,??No??muscle pain,??No??decreased range of motion Integumentary:?No??rash,?No??pruritus,?No??abrasions Neurologic: Alert & oriented X 4 Psychiatric:?No??anxiety,?No??depression Physical Exam Left knee with??skin intact.?? Varus alignment that is reducible. ??Point tender at the medial joint line.?? 2 degree flexion contracture. ??Flexion with palpable crepitus to approximately 120 degrees. ??Good ligamentous stability. ??Neurovascular intact distally.?? X-rays of the left knee demonstrating varus alignment. ??Complete collapse of the medial compartment.?? Tricompartmental osteophytes. Assessment/Plan 1.??Osteoarthritis of left knee??M17.12 End-stage left knee tricompartmental osteoarthritis with [id number] changes that has failed conservative care as outlined above. ??He is indicated at this time for left total knee arthroplasty.?? We reviewed his images together as well as models and perioperative protocols, restratification and reasonable postop expectations.?? Will get him on the schedule at his convenience. Problem List/Past Medical History Ongoing Arthritis of [...] dipropionate, augmented 0.05% topical ointment, See Instructions hydroCHLOROthiazide 25 mg oral tablet, 25 mg= 1 tab, Oral, Daily ketoconazole 2% topical cream Tylenol 8 HR Arthritis Pain 650 mg oral tablet, extended release, 650 mg= 1 tab, Oral, every 8 hr Allergies No Known Allergies No Known Medication Allergies Electronically Signed on 06/10/23 02:48 PM Justyna Negro, DO Patient Care team information Care Team Personnel Name: DIAMANTE DICKINSON Position: No Access Member Role: Primary Care Physician Address: Address: [address] [place] [id number] Care Team Related Persons Name: LATRICE MITCHELL
--- OUTSIDE RECORDS SUMMARY | 2024-06-05 14:52 | XMS_ITS | Continuity of Care Document ---
Author Organization [facility] Ambulatory Clinics Address [address] [place] [address] Encounter [facility] NBR [id number] Date(s): 03/20/22 - 03/20/22 [facility] [address] [place], [place] [address] Encounter Diagnosis Bilateral primary osteoarthritis of knee(Discharge Diagnosis) - 03/20/22 Discharge Disposition: Home or Self Care Attending Physician: Mook Carrillo MD Allergies, Adverse Reactions, Alerts No Known Allergies Functional Status 03/20/22 Other exposure to Infectious Disease Non e Medications amLODIPine 10 mg oral tablet 30 EA, TAKE 1 TABLET BY MOUTH EVERY DAY, 0 Refill(s) Start Date: 03/20/22 Status: Ordered [...] Condition Confirmation Course Effective Dates Status H ealth Status Informant Derangement of medial meniscus due to injury of knee Confirmed Active HTN (hypertension) Confirmed Active Idiopathic osteoarthritis Confirmed Active Osteoarthritis of knee Confirmed Active Osteoarthritis of right knee joint Confirmed Active Bilateral primary osteoarthritis of knee Confirmed Active Vital Signs Most recent to oldest [Reference Range]: 1 Peripheral Pulse Rate [60-100 bpm] 80 bp m (03/20/22 1:30 PM) Blood Pressure [90-140/60-90 mmHg] 108/6 0mmHg (03/20/22 1:30 PM) Weight 97.52 kg (03/20/22 1:30 PM) Weight Measured (lbs) 214.995 lb (03/20/22 1:30 PM) Height 177.8 cm (03/20/22 1:30 PM) Height/Length Measured (inches) 70 inch (03/20/22 1:30 PM) BSA Measured 2.19 m2 (03/20/22 1:30 PM) Body Mass Index 30.85 kg/m2 (03/20/22 1:30 PM) Social History Social History Type Response Tobacco Never tobacco user T obacco Use:. Sex
--- OUTSIDE RECORDS SUMMARY | 2024-06-05 14:52 | XMS_ITS | Continuity of Care Document ---
Author Organization [facility] Ambulatory Clinics Address [address] [place] [address] Care Team Providers Care Photovoltaic Power Systems Engineer Name Role Phone TEENADIAMANTE GRAY Primary Care Physician Encounter [facility] NBR [id number] Date(s): 04/16/23 - 04/16/23 [facility] Ambulatory [facility] [address] [place] [address]- [place] Discharge Disposition: Home Allergies, Adverse Reactions, Alerts No Known Allergies Assessment and Plan Future Appointments Future Scheduled Tests Laboratory* CBC w/ Diff 04/21/23 * Comprehensive Metabolic Panel 04/21/23 * Staph Nasal Complete (GeneXpert) 04/21/23 * Urinalysis with Micro if Indicated and Culture if Indicated 04/21/23 Medications Albuterol (Eqv-ProAir HFA) 90 mcg/inh inhalation aerosol 2 puffs, Inhale, every 4 hr, PRN as needed for wheezing, 0 Refill(s) Start Date: 03/11/23 Status: Ordered amLODIPine 10 mg oral tablet 30 EA, TAKE 1 TABLET BY MOUTH EVERY DAY, 0 Refill(s) Start Date: 03/20/22 Status: Ordered atorvastatin 40 mg oral tablet 40 mg = 1 tab, Oral, Daily, # 30 tab, 0 Refill(s) Start Date: 03/03/22 Status: Ordered benzonatate 100 mg oral capsule 100 mg = 1 cap, Oral, every 8 hr, PRN as needed for cough, # 30 cap, 0 Refill(s) Start Date: 03/11/23 Status: Ordered betamethasone dipropionate, augmented 0.05% topical ointment 100 g, 0 Refill(s), APPLY TO AFFECTED AREA(S) ON THE TRUNK AND EXTREMITIES TWO TIMES A DAY NEEDED FOR UP TO 2 WEEKS AT A TIME FOR FLARES, THEN STOP FOR 1 WEE, 0 Refill(s) Start Date: 01/15/23 Status: Ordered hydroCHLOROthiazide 25 mg oral tablet 25 mg = 1 tab, Oral, Daily, 0 Refill(s) Start Date: 03/03/22 Status: Ordered ibuprofen 200 mg oral tablet 400 mg = 2 tab, Oral, every 4 hr, PRN as needed for pain, # 120 tab, 0 Refill(s) Start Date: 03/03/22 Status: Ordered ketoconazole 2% topical cream 60 g, 0 Refill(s), APPLY TWICE DAILY TO AFFECTED AREAS ON THE FACE NEEDED, 0 Refill(s) Start Date: 01/15/23 Status: Ordered Problem List Condition Confirmation Course Effective Dates Status Health Status Informant Arthritis of right acromioclavicular joint Confirmed Active Derangement of medial meniscus due to injury of knee Confirmed Active HTN (hypertension) Confirmed Active Idiopathic osteoarthritis Confirmed Active Osteoarthritis of knee Confirmed Active Osteoarthritis of right knee joint Confirmed Active Bilateral primary osteoarthritis of knee Confirmed Active Social History Social History Type Response Tobacco Never tobacco user T obacco Use:. Sex Patient Care team information Care Team Personnel Name: DIAMANTE DICKINSON Position: No Access Member Role: Primary Care Physician Address: Address: [address] [place] [address] [place] Care Team Related Persons Name: LATRICE MITCHELL
--- OUTSIDE RECORDS SUMMARY | 2024-06-05 14:52 | XMS_ITS | Continuity of Care Document ---
Author Organization [facility] Ambulatory Clinics Address [address] [place] [address] Care Team Providers Care Comfort Station Attendant Name Role Phone TEENA DIAMANTE Valero Primary Care Physician [phone] Encounter [facility] NBR [id number] Date(s): 01/15/23 - 01/15/23 [facility] [address] [place], [place] [address] Encounter Diagnosis Osteoarthritis of knees, bilateral(Discharge Diagnosis) - 01/15/23 Discharge Disposition: Home or Self Care Attending Physician: Valencia Bean PROGRAM OR PROJECT ADMINISTRATOR, Allergies, Adverse Reactions, Alerts No Known Allergies Assessment and Plan Future Appointments Medications [facility] Prescription 30 EA, 0 Refill(s), TAKE ONE TABLET BY MOUTH EVERY DAY, 0 Refill(s) Start Date: 01/15/23 Status: Ordered amLODIPine 10 mg oral tablet 30 EA, TAKE 1 TABLET BY MOUTH EVERY DAY, 0 Refill(s) Start Date: 03/20/22 Status: Ordered atorvastatin 40 mg oral tablet 40 mg = 1 tab, Oral, Daily, # 30 tab, 0 Refill(s) Start Date: 03/03/22 Status: Ordered betamethasone dipropionate, augmented 0.05% topical [...] Pulse Rate [60-100 bpm] 80 bp m (01/15/23 8:55 AM) Blood Pressure [90-140/60-90 mmHg] 145/7 5mmHg *HI* (01/15/23 8:55 AM) Weight 102.06 kg (01/15/23 8:55 AM) Weight Measured (lbs) 225.004 lb (01/15/23 8:55 AM) Height 175.25 cm (01/15/23 8:55 AM) Height/Length Measured (inches) 69 inch (01/15/23 8:55 AM) BSA Measured 2.23 m2 (01/15/23 8:55 AM) Body Mass Index 33.23 kg/m2 (01/15/23 8:55 AM) Social History Social History Type Response Tobacco Never tobacco user T obacco Use:. Sex Hospital Discharge Instructions Follow Up Care 01/08/2023 12:51:29 With:Valencia Bean APRN, Address: [address] [place], [place] [id number] When:Within 1 Week(s) Comments:EUFLEXXA #3 R KNEE/EUFLEXXA #2 LEFT KNEE Physician Outpatient Note * Valencia Bean APRN,: PERFORM Event Display: Office Clinic Note Physician Authored Date: [id number] SIERRA MITCHELL :1960 Age:62 years Sex:Male Visit Date:01/15/2023 Primary Care Physician: DIAMANTE DICKINSON Chief Complaint RIGHT KNEE EUFLEXXA #2 History of Present Illness Don is a very pleasant??62-year-old man who is well-known to the practice.?? He is here today for Euflexxa No. 2 for the right knee.?? The series was started last week, he states the knee is feeling better.?? He has advanced osteoarthritis of both knees confirmed radiographically.?? Although he gets good relief from the injections, at this point he is now considering knee replacement.?? The left knee has started to bother him a bit more. ??He wonders if it would be reasonable to start Euflexxa??for the left today.?? No history of adverse reaction. Review of Systems Constitutional:?No??fevers,?No??chills,?No??sweats Respiratory:?No??shortness of breath,?No??cough Cardiovascular:?No??Chest pain,?No??palpitations,?No??syncope Gastrointestinal:?Nonausea,?No??vomiting,?No??diarrhea Musculoskeletal:??No??back pain,??No??neck pain,??Positive for??bilat knee pain,??No??muscle pain,??No??decreased range of motion Integumentary:?No??rash,?No??pruritus,?No??abrasions Neurologic: Alert & oriented X 4 Psychiatric:?No??anxiety,?No??depression Physical Exam Vitals & Measurements HR:??80??(Peripheral)?? BP:??145/75?? SpO2:??99%?? HT:??175.25??cm?? WT:??102.06??kg?? BMI:??33.23?? Pain Score:??6?? BSA:??2.23?? The patient is alert and oriented x3. ??Pleasant and cooperative. ??Well-dressed and well-groomed.?? Appears stated age and is well-nourished and well- developed.?? Examination of the bilateral knees is without deformity. ??Skin is intact. ??There is no erythema or warmth. ??No signs or symptoms of infection.?? Gentle range of motion at each knee is intact without discomfort. Procedure Risks, benefits and alternatives to??these injections are discussed with the patient, verbal consent is obtained. ??Under standard, sterile technique, the anterolateral injection sites of the bilateral knees are meticulously prepped with ChloraPrep x3.?? Then??Euflexxa 20 mg??is injected at each knee without difficulty. ??The patient tolerated both injections very well and dry, sterile bandages are applied.?? Postinjection instructions are provided. Assessment/Plan 1.??Osteoarthritis of knees, bilateral??M17.0 Don is a very pleasant??62-year-old man??with advanced bilateral knee OA confirmed radiographically. ??Euflexxa was started last week for the right knee, it is feeling better.?? He has now started tonotice more discomfort at the left knee, wonders if he can start the series??on the left.?? No adverse reaction. ??He is also considering??knee replacement, consultation has been scheduled with Dr. Negro.?? I am happy to give him injections for both knees today.?? I will see him back next week for the final injection for the right knee and the second injection for the left knee.?? He may continue with supportive care. ??He is in agreement with the above plan and is encouraged to contact??the office with questions or concerns. Ordered: Euflexxa, 20 mg, Intra-articular, Once, First Dose: 01/15/23 9:07:00 EDT, Stop Date: 01/15/23 9:07:00 EDT, Physician Stop, Routine Euflexxa, 20 mg, Intra-articular, Once, First Dose: 01/15/23 9:07:00 EDT, Stop Date: 01/15/23 9:07:00 EDT, Physician Stop, Routine ?? Follow Up Instructions With When Contact Information Valencia Bean APRN, In 1 week [address] [place] [address]- Additional Instructions: EUFLEXXA #3 R KNEE/EUFLEXXA #2 LEFT KNEE Problem List/Past Medical History Ongoing Arthritis of right acromioclavicular joint Bilateral primary osteoarthritis of knee Derangement of medial meniscus due to injury of knee HTN (hypertension) Idiopathic osteoarthritis Osteoarthritis of knee Osteoarthritis of right knee joint Historical No qualifying data Medications [facility] Prescription amLODIPine 10 mg oral tablet atorvastatin 40 mg oral tablet, 40 mg= 1 tab, Oral, Daily betamethasone dipropionate, augmented 0.05% topical ointment Euflexxa, 20 mg, Intra-articular, Once Euflexxa, 20 mg, Intra-articular, Once hydroCHLOROthiazide 25 mg oral tablet, 25 mg= 1 tab, Oral, Daily ibuprofen 200 mg oral tablet, 400 mg= 2 tab, Oral, every 4 hr, PRN ketoconazole 2% topical cream Allergies No Known Allergies No Known Medication Allergies Social History Electronic Cigarette/Vaping Electronic Cigarette Use: Never. Tobacco Never tobacco user Tobacco Use:. Electronically Signed on 01/15/23 09:08 AM Valencia Bean APRN, Patient Care team information Care Team Personnel Name: DIAMANTE DICKINSON Position: No Access Member Role: Primary Care Physician Address: Address: [address] [place] [address]- Care Team Related Persons Name: LATRICE MITCHELL
--- OUTSIDE RECORDS SUMMARY | 2024-06-05 14:52 | XMS_ITS | Continuity of Care Document ---
Author Organization [facility] Address [address] [place] [address] Care Team Providers Care Import/Export Administrator Name Role Phone DIAMANTE DICKINSON Primary Care Physician Encounter [facility] NBR [id number] Date(s): 08/11/23 - 08/11/[address] [address] Discharge Disposition: Home or Self Care Attending Physician: Joceline Weiss APRN Admitting Physician: Joceline Weiss APRN Referring Physician: DIAMANTE DICKINSON Allergies, Adverse Reactions, Alerts No Known Allergies Assessment and Plan Future Appointments Medications Albuterol (Eqv-ProAir HFA) 90 [...] 0 Refill(s) Start Date: 01/15/23 Status: Ordered celecoxib 200 mg oral capsule 200 mg = 1 cap, Oral, BID, take mid-day and at bedtime, # 28 cap, 0 Refill(s), Pharmacy: [facility], 175, cm, 07/15/23 10:15:00 EST, Height, 100, kg, 07/15/23 10:21:00 EST, Weight Dosing Start Date: 07/20/23 Stop Date: 08/03/23 Status: Ordered Ecotrin 325 mg oral delayed release tablet 325 mg = 1 tab, Oral, BID, # 84 tab, 0 Refill(s), Pharmacy: [facility], 175, cm, 07/15/23 10:15:00 EST, Height, 100, kg, 07/15/23 10:21:00 EST, Weight Dosing Start Date: 07/20/23 Stop Date: 08/31/23 Status: Ordered hydroCHLOROthiazide 25 mg oral tablet 25 mg = 1 tab, Oral, Daily, 0 Refill(s) Start Date: 03/03/22 Status: Ordered ketoconazole 2% topical cream , APPLY TWICE DAILY TO AFFECTED AREAS ON THE FACE NEEDED, 0 Refill(s) Start Date: 01/15/23 Status: Ordered MiraLax oral powder for reconstitution 17 g, Oral, Daily, # 238 g, 0 Refill(s), Pharmacy: [facility], 175, cm, 07/15/23 10:15:00 EST, Height, 100, kg, 07/15/23 10:21:00 EST, Weight Dosing Start Date: 07/20/23 Status: Ordered oxyCODONE 5 mg oral tablet See Instructions, PRN as needed for pain, 1-2 tab Oral every 4- 6 hr, # 60 tab, 0 Refill(s), Pharmacy: [facility], 175, cm, 07/15/23 10:15:00 EST, Height, 100, kg, 07/15/23 10:21:00 EST, Weight Dosing Start Date: 07/20/23 Status: Ordered Tylenol 8 HR Arthritis Pain 650 mg oral tablet, extended release 650 mg = 1 tab, Oral, every 8 hr, # 50 tab, 0 Refill(s), Pharmacy: [facility], 175, cm,07/15/23 10:15:00 EST, Height, 100, kg, 07/15/23 10:21:00 EST, Weight Dosing Start Date: 07/20/23 Status: Ordered Problem List Condition Confirmation Course [...] Diagnosis Body Site Status Total Knee Arthroplasty (Left) 1 07/20/23 Completed Total Knee Arthroplasty (Right) 2 04/26/23 Completed Arthroscopy of knee 3 Com pleted Colonoscopy Completed 1auto-populated from documented surgical case 2auto-populated from documented surgical case 3x2 Results Radiology Reports * Exam Date Time Procedure Performing Provider Status 08/11/23 11:31 AM US Lower Ext Venous Duplex Left DomainUser, Generated; Auth (Verified) Notes: (US Lower Ext Venous Duplex Left) Reason For Exam: S/P Left total knee arthroplasty, rule out DVT US Lower Ext Venous Duplex Left EXAM DESCRIPTION: US Lower Ext Venous Duplex Left 08/11/2023 INDICATION: S/P LEFT TOTAL KNEE ARTHROPLASTY, RULE OUT DVT TECHNIQUE: Static images of real-time sonography utilizing B-mode and color Doppler with spectral waveform analysis of the left lower extremity deep venous system was performed. FINDINGS: Left common femoral vein, saphenous junction, femoral vein, popliteal vein as well as visualized posterior tibial and peroneal veins demonstrate normal compressibility, color flow and augmentation with no evidence of DVT. Ovoid hypoechoic fluid collection in the popliteal fossa consistent with septated popliteal cyst measuring 6.5 x 3.4 x 3.2 cm. IMPRESSION: No evidence of left lower extremity DVT Prominent popliteal cyst as described above. JOB #: [id number] Final Signed by: Phillip Torres MD Signed (Electronic Signature): 08/11/2023 12:01 pm * Exam Date Time Procedure Performing Provider Status 08/11/23 10:24 AM XR Ankle Complete 3+ Views Left Prospe r, Nicki; Auth (Verified) Notes: (XR Ankle Complete 3+ Views Left) Reason For Exam: Left lower extremity swelling XR Ankle Complete 3+ Views Left EXAM DESCRIPTION: XR Ankle Complete 3+ Views Left 08/11/2023 INDICATION: LEFT LOWER EXTREMITY SWELLING COMPARISON: None IMPRESSION: No acute fracture or dislocation Bimalleolar region soft tissue swelling No significant regional arthritic changes Regional vascular calcification. JOB #: [id number] Final Signed by: Phillip Torres MD Signed (Electronic Signature): 08/11/2023 11:03 am Social History Social History Type Response Tobacco Never tobacco user T obacco Use:. Sex Implantable Device List Procedure Provider Procedure Date Device Type Site Total Knee Arthroplasty Justyna Weiss, 07/20/23 U nknown Knee L Device Identifier Serial Number Lot or Batch Number Manufacturing Date Expiration Date Distinct Identification Code MRI Safety Implantable Status Assigning Authority Unknown Unknown [id number] Unknown 03/13/28 Unknown Unknown Active Unknown Unknown Unknown [id number] Unknown 11/05/25 Unknown Unknown Active Unknown Unknown Unknown [id number] Unknown 03/05/33 Unknown Unknown Active Unknown Unknown Unknown [id number] Unknown 05/07/33 Unknown Unknown Active Unknown Unknown Unknown [id number] Unknown 03/05/28 Unknown Unknown Active Unknown Procedure Provider Procedure Date Device Type Site Total Knee Arthroplasty Unknown 04/26/23 Unknown K nee R Device Identifier Serial Number Lot or Batch Number Manufacturing Date Expiration Date Distinct Identification Code MRI Safety Implantable Status Assigning Authority Unknown Unknown [id number] Unknown 09/06/32 Unknown Unknown Active Unknown Unknown Unknown [id number] Unknown 08/06/25 Unknown Unknown Active Unknown Unknown Unknown [id number] Unknown 02/02/28 Unknown Unknown Active Unknown Unknown Unknown [id number] Unknown 08/31/32 Unknown Unknown Active Unknown Unknown Unknown [id number] Unknown 07/10/27 Unknown Unknown Active Unknown Patient Care team information Care Team Personnel Name: DIAMANTE DICKINSON Position: No Access Member Role: Primary Care Physician Address: Address: [address] [place] [id number] [place] [address] Care Team Related Persons Name: LATRICE MITCHELL
--- OUTSIDE RECORDS SUMMARY | 2024-06-05 14:52 | XMS_ITS | Continuity of Care Document ---
Author Organization [facility] Amb[facility] Address [address] [place] [address] Care Team Providers Care Saw Repairer Name Role Phone DIAMANTE DICKINSON Primary Care Physician [phone] Encounter [facility] NBR [id number] Date(s): 08/13/23 - 08/13/23 [facility] Ambulatory [facility] [address] [place] [address]- [place] Discharge Disposition: Home Allergies, [...] bedtime, # 28 cap, 0 Refill(s), Pharmacy: [facility], 175, cm, 07/15/23 10:15:00 EST, Height, 100, kg, 07/15/23 10:21:00 EST, Weight Dosing Start Date: 07/20/23 Stop Date: 08/03/23 Status: Ordered cephalexin 500 mg oral capsule 500 mg = 1 cap, Oral, every 6 hr, # 40 cap, 2 Refill(s), Pharmacy: [facility], 175, cm, 07/15/23 10:15:00 EST, Height, 100, kg, 07/15/23 10:21:00 EST, Weight Dosing Start Date: 08/13/23 Stop Date: 09/12/23 Status: Ordered Ecotrin 325 mg oral delayed release tablet 325 mg = 1 tab, Oral, BID, # 84 tab, 0 Refill(s), Pharmacy: [facility], 175, cm, 07/15/23 10:15:00 EST, [...] Daily, # 238 g, 0 Refill(s), Pharmacy: [facility], 175, cm, 07/15/23 10:15:00 EST, Height, 100, kg, 07/15/23 10:21:00 EST, Weight Dosing Start Date: 07/20/23 Status: Ordered oxyCODONE 5 mg oral tablet See Instructions, PRN as needed for pain, 1-2 tab Oral every 4- 6 hr, # 60 tab, 0 Refill(s), Pharmacy: [facility], 175, cm, 07/15/23 10:15:00 EST, Height, 100, kg, 07/15/23 10:21:00 EST, Weight Dosing Start Date: 07/20/23 Status: Ordered rifAMPin 300 mg oral capsule 300 mg = 1 cap, Oral, every 12 hr, # 20 cap, 2 Refill(s), Pharmacy: [facility], 175, cm, 07/15/23 10:15:00 EST, Height, 100, kg, 07/15/23 10:21:00 EST, Weight Dosing Start Date: 08/13/23 Stop Date: 09/12/23 Status: Ordered Tylenol 8 HR Arthritis Pain 650 mg oral tablet, extended release 650 mg = 1 tab, Oral, every 8 hr, # 50 tab, 0 Refill(s), Pharmacy: [facility], 175, cm,07/15/23 10:15:00 EST, Height, [...] case 2auto-populated from documented surgical case 3x2 Social History Social History Type Response Tobacco Never tobacco user T obacco Use:. Sex Implantable Device List Procedure Provider Procedure Date Device Type Site Total Knee Arthroplasty Justyna Negro, DO 07/20/23 U nknown Knee L Device Identifier Serial Number Lot or Batch Number Manufacturing Date Expiration Date Distinct Identification Code MRI Safety Implantable Status Assigning Authority Unknown Unknown [id number] Unknown 03/13/28 Unknown Unknown Active Unknown Unknown Unknown [id number] Unknown 11/05/25 Unknown Unknown Active Unknown Unknown Unknown [id number] Unknown 03/05/33 Unknown Unknown Active Unknown Unknown Unknown [id number] Unknown 05/07/33 Unknown Unknown Active Unknown Unknown Unknown [id number] Unknown 03/05/28 Unknown Unknown Active Unknown Procedure Provider Procedure Date Device Type Site Total Knee Arthroplasty Unknown 04/26/23 Unknown K nee R Device Identifier Serial Number Lot or Batch Number Manufacturing Date Expiration Date Distinct Identification Code MRI Safety Implantable Status Assigning Authority Unknown Unknown [id number] Unknown 09/06/32 Unknown Unknown Active Unknown Unknown Unknown [id number] Unknown 08/06/25 Unknown Unknown Active Unknown Unknown Unknown [id number] Unknown 02/02/28 Unknown Unknown Active Unknown Unknown Unknown [id number] Unknown 08/31/32 Unknown Unknown Active Unknown Unknown Unknown [id number] Unknown 07/10/27 Unknown Unknown Active Unknown Patient Care team information Care Team Personnel Name: DIAMANTE DICKINSON Position: No Access Member Role: Primary Care Physician Address: Address: [address] [place] [id number] [place] [address] Care Team Related Persons Name: LATRICE MITCHELL
--- OUTSIDE RECORDS SUMMARY | 2024-06-05 14:52 | XMS_ITS | Continuity of Care Document ---
Author Organization [facility] Address [address] [place] [id number] Care Team Providers Care Minister Of Religion Name Role Phone DIAMANTE DICKINSON Primary Care Physician Encounter [facility] NBR [id number] Date(s): 07/20/23 - 07/20/[address] [address] [place] Encounter Diagnosis Status post left knee replacement(Discharge Diagnosis) - 07/20/23 Discharge Disposition: Home f/u Internal Provider Attending Physician: Justyna Weiss DO Admitting Physician: Justyna Weiss DO Referring Physician: Justyna Weiss DO Allergies, Adverse Reactions, Alerts No Known Allergies Assessment and Plan Future Appointments Functional Status 07/20/23 Living Environment Home Environment Special Services/Community Resources: None Performed By: Yadira Arceo 07/20/2023 Sensory Deficits: Hearing deficit, left ear, Hearing deficit, right ear Performed By: Yadira Arceo 07/20/2023 Lives In Single level home Lives With Spouse Patient's Responsibilities Rehab Employe d, 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, Personal ADL Number of Stairs Outside 2 Prior ADL Status Independent Prior Mobility Status Independent Prior Instrumental ADL Level Independent Prior Cognitive-Communication Skills Ind ependent 07/20/23 Special Services and Community Resources None 07/20/23 Anti-Embolism Device Activity: Removed Anti-Embolism Device Removal Reason: Act ivity, Discontinued Anti-Embolism Site Condition: No complic ations 07/20/23 Antiembolism Device Graduated compressio n stockings, knee high, right, Intermittent pneumatic compression devices, knee high, right Medications Albuterol (Eqv-ProAir HFA) 90 mcg/inh inhalation [...] bedtime, # 28 cap, 0 Refill(s), Pharmacy: [facility], 175, cm, 07/15/23 10:15:00 EST, Height, 100, kg, 07/15/23 10:21:00 EST, Weight Dosing Start Date: 07/20/23 Stop Date: 08/03/23 Status: Ordered Ecotrin 325 mg oral delayed release tablet 325 mg = 1 tab, Oral, BID, # 84 tab, 0 Refill(s), Pharmacy: [facility], 175, cm, 07/15/23 10:15:00 EST, [...] Daily, # 238 g, 0 Refill(s), Pharmacy: [facility], 175, cm, 07/15/23 10:15:00 EST, Height, 100, kg, 07/15/23 10:21:00 EST, Weight Dosing Start Date: 07/20/23 Status: Ordered oxyCODONE 5 mg oral tablet See Instructions, PRN as needed for pain, 1-2 tab Oral every 4- 6 hr, # 60 tab, 0 Refill(s), Pharmacy: [facility], 175, cm, 07/15/23 10:15:00 EST, Height, 100, kg, 07/15/23 10:21:00 EST, Weight Dosing Start Date: 07/20/23 Status: Ordered Tylenol 8 HR Arthritis Pain 650 mg oral tablet, extended release 650 mg = 1 tab, Oral, every 8 hr, # 50 tab, 0 Refill(s), Pharmacy: [facility], 175, cm,07/15/23 10:15:00 EST, Height, [...] Exam Date Time Procedure Performing Provider Status 07/20/23 9:31 AM XR Knee 3 Views Left Vinny Malhotra; Lulu (Verified) Notes: (XR Knee 3 Views Left) Reason For Exam: s/p left TKA XR Knee 3 Views Left EXAM DESCRIPTION: XR Knee 3 Views Left 07/20/2023 INDICATION: S/P LEFT TKA IMPRESSION: Status post left total knee arthroplasty with satisfactory postoperative appearance. Regional soft tissue and intra-articular air consistent with recent postoperative state. JOB #: [id number] Final Signed by: Phillip Torres MD Signed (Electronic Signature): 07/20/2023 9:36 am Vital Signs Most recent to oldest [Reference Range]: 1 2 3 Temperature Temporal Artery [36-38 Deg C] 36 Deg C (07/20/23 9:18 AM) 36.4 Deg C (07/20/23 6:42 AM) Temperature Temporal Artery (DegF) [97.3-100 Deg F] 96.8 Deg F *LOW* (07/20/23 9:18 AM) 97.52 Deg F (07/20/23 6:42 AM) Peripheral Pulse Rate [60-100 bpm] 81 bpm (07/20/23 11:44 AM) 76 bpm (07/20/23 11:36 AM) 82 bpm (07/20/23 11:24 AM) Heart Rate Monitored [60-100 bpm] 82 bpm (07/20/23 10:30 AM) 82 bpm (07/20/23 10:15 AM) 83 bpm (07/20/23 10:00 AM) Blood Pressure [90-140/60-90 mmHg] 121/75mmHg (07/20/23 11:15 AM) 119/70mmHg (07/20/23 11:00 AM) 114/63mmHg (07/20/23 10:45 AM) Mean Arterial Pressure, Cuff [65-140 mmHg] 90 mmHg (07/20/23 11:15 AM) 86 mmHg (07/20/23 11:00 AM) 80 mmHg (07/20/23 10:45 AM) Mean Arterial Pressure Cuff 88 mmHg (07/20/23 11:15 AM) 84 mmHg (07/20/23 11:00 AM) 78 mmHg (07/20/23 10:45 AM) Blood Pressure Location Left arm (07/20/23 11:15 AM) Left arm (07/20/23 11:00 AM) Left arm (07/20/23 10:45 AM) Blood Pressure Method Automatic (07/20/23 11:15 AM) Automatic (07/20/23 11:00 AM) Automatic (07/20/23 10:45 AM) Weight 100 kg (07/15/23 10:15 AM) Weight Dosing 100.000 kg (07/15/23 10:15 AM) Height 175 cm (07/15/23 10:15 AM) Social History Social History Type Response Tobacco Never tobacco user T obacco Use:. Sex Implantable Device List Procedure Provider Procedure Date Device Type Site Total Knee Arthroplasty Justyna Weiss DO 07/20/23 U nknown Knee L Device Identifier Serial Number Lot or Batch Number Manufacturing Date Expiration Date Distinct Identification Code MRI Safety Implantable Status Assigning Authority Unknown Unknown [id number] Unknown 03/13/28 Unknown Unknown Active Unknown Unknown Unknown [id number] Unknown 11/05/25 Unknown Unknown Active Unknown Unknown Unknown [id number] Unknown 03/05/33 Unknown Unknown Active Unknown Unknown Unknown [id number] Unknown 05/07/33 Unknown Unknown Active Unknown Unknown Unknown [id number] Unknown 03/05/28 Unknown Unknown Active Unknown Procedure Provider Procedure Date Device Type Site Total Knee Arthroplasty Unknown 04/26/23 Unknown K nee R Device Identifier Serial Number Lot or Batch Number Manufacturing Date Expiration Date Distinct Identification Code MRI Safety Implantable Status Assigning Authority Unknown Unknown [id number] Unknown 09/06/32 Unknown Unknown Active Unknown Unknown Unknown [id number] Unknown 08/06/25 Unknown Unknown Active Unknown Unknown Unknown [id number] Unknown 02/02/28 Unknown Unknown Active Unknown Unknown Unknown [id number] Unknown 08/31/32 Unknown Unknown Active Unknown Unknown Unknown [id number] Unknown 07/10/27 Unknown Unknown Active Unknown Hospital Discharge Instructions Patient Education 06/21/2023 12:53:46 Joceline MARTI instructions ([facility]) [facility] Discharge Instructions Name: Sierra Mitchell Surgery: Left knee replacement General Instructions: ??? Keep limb elevated as much as possible in the next 1-2 weeks in between PT / exercises. Foot must be 12 inches above heart for severe swelling. Do not sit with leg dangling below you for longer than a few minutes at a time-it exacerbates swelling! ??? Keep dressing clean and dry. ??? Apply ice to affected area 3-5 times daily for 20-30 minutes at a time Dressing Instructions: ??? KNEE REPLACEMENTS: Physical therapy will remove your bandage at the first visit if you are an outpatient. If you stayed overnight, we removed your bandage. After dressing removal you may shower-do not submerge the wound in fluid! Do not pick at the wound. Do not apply lotions/creams/salves. EVERY MORNING- put on ANDRA stocking-then amado bandage from groin to top of ANDRA stocking- ON EVERY MORNINGOFF EVERY NIGHT FOR FIRST 2 WEEKS. This is to help manage swelling! ??? SWELLING AND BRUISING IS EXPECTED! BRUISING MIGHT SHOW UP ALONG THE WHOLE LEG. Extensive bruising is common. The joint will feel warm because it is likely swollen. Discharge medications: Pain Medication (narcotic): oxycodone use sparingly, this should make pain tolerable not completely???pain free?? Pain medicine alters your balance/coordination-you should not drive or operate heavy machinery while taking pain medicine. Blood Clot Prevention: Ecotrin 325mg twice a day x 6 weeks Other Medications: Celebrex for inflammation x 14 days Tylenol for pain over next few weeks, 650mg every 6-8 hours ALL narcotics WILL cause constipation! We suggest: Miralax Refills of pain medication: We require 24 hours notice for refills. In order to refill a medication before the weekend all requests must be in by at 12:00pm. All refill requests will be taken at [phone]. This is your responsibility to keep track of how much pain medication you have left. Activity: ??? Full Weight Bearing as tolerated with gentle movement of the extremity Therapy/Visiting Nurses: ??? Physical Therapy: this is usually already set up by the time you have surgery- if it has not been, please call to set up your therapy appointment within 1 day. If you are having issues getting this started please call our office for help Complications: If you experience the following call [phone]. Please try to call with questions during normal business hours. After hour calls should be for emergency use only. ??? Red streaking extending out away from wound ??? Drainage from wound- small amount of blood is ok, pus is not ??? Fever (101 or above), nausea, vomiting-- inability to drink fluids Follow up Care: POST OP APPOINTMENT Date/Time: 07/28/23 @ 10:45am [place] [facility] Joceline Weiss APRN Return to Work/School: not until follow up Patient Signature Please keep this handy at home so that you may refer to it if you think of a question. Discharge instructions * Yadira Arceo: PERFORM Event Display: Discharge Instructions Authored Date: [id number] SIERRA MITCHELL :1960 Age:62 years Sex:Male Visit Date:07/20/2023 Primary Care Physician: DIAMANTE DICKINSON Hospital Discharge Instructions We would like to thank you for allowing us to assist you with your healthcare needs. The following includes patient education materials and information regarding your injury/illness. Your Next Steps Scheduled Future Appointments Wednesday 10:45 AM EDT ?? With: Joceline Weiss APRN Where: [facility] Status: Confirmed Medications What How Much When Instructions Next Dose Unchanged acetaminophen (Tylenol 8 HR Arthritis Pain 650 mg oral tablet, extended release) 1 tab Oral (given by mouth) Every 8 hours Pickup at [facility] Unchanged albuterol (Albuterol (Eqv-ProAir HFA) 90 mcg/ inh inhalation aerosol) 2 Puffs Inhale (breathe in) Every 4 hours as needed for as needed for wheezing Unchanged amLODIPine (amLODIPine 10 mg oral tablet) 1 tab Oral (given by mouth) Every day Unchanged aspirin (Ecotrin 325 mg oral delayed release tablet) 1 tab Oral (given by mouth) 2 times a day Duration: 6 weeks Pickup at [facility] Unchanged atorvastatin (atorvastatin 40 mg oral tablet) 1 tab Oral (given by mouth) Every day Unchanged betamethasone topical (betamethasone dipropionate, augmented 0.05% topical ointment) See instructions Unchanged celecoxib (celecoxib 200 mg oral capsule) 1 Capsules Oral (given by mouth) 2 times a day Duration: 14 Days take mid-day and at bedtime ?? Pickup at [facility] Unchanged hydroCHLOROthiazide (hydroCHLOROthiazide 25 mg oral tablet) 1 tab Oral (given by mouth) Every day Unchanged ketoconazole topical (ketoconazole 2% topical cream) , APPLY TWICE DAILY TO AFFECTED AREAS ON THE FACE NEEDED ?? Unchanged oxyCODONE (oxyCODONE 5 mg oral tablet) See instructions 1-2 tab Oral every 4- 6 hr, As needed for as needed for pain ?? Pickup at [facility] Unchanged polyethylene glycol 3350 (MiraLax oral powder for reconstitution) 17 Gram Oral (given by mouth) Every day Pickup at [facility] Pharmacy Information [facility]: [address], [place] [id number] [phone] Your Summary Your Care Team Admitting Physician - Justyna Weiss, DO Attending Physician - Justyna Weiss, DO Primary Care Physician - DIAMANTE DICKINSON Referring Physician - Justyna Weiss, DO Your Diagnosis Blood tests prior to treatment or procedure Encounter for screening for hematologic disorder Encounter for screening for metabolic disorder Encounter for screening for other infectious and parasitic diseases Osteoarthritis of left knee Problems Ongoing - Any problem that you are currently receiving treatment for. Arthritis of right acromioclavicular joint Bilateral primary osteoarthritis of knee Colonic polyp Derangement of medial meniscus due to injury of knee Eczema Hearing impaired HLD - Hyperlipidemia HTN (hypertension) Idiopathic osteoarthritis Osteoarthritis of knee Osteoarthritis of right knee joint Procedures Performed ???Total Knee Arthroplasty (Left) (07/20/2023) Tests Performed/Pending XR Knee 3 Views Left Discharge Vitals Temperature??(Temporal Artery) 96.8 ??F (36 ??C) Heart Rate??(Peripheral) 82 Heart Rate??(Monitored) 83 Blood Pressure?? 126/64?? SpO2?? 91% Allergies No Known Allergies No Known Medication Allergies Devices Implanted/Removed This Visit Notice: You have devices implanted this visit that may not be MRI compatible. Implanted Total Knee Arthroplasty Knee L ???BONE CEMENT 1MM 40MM 07/20/2023???PATELLA CEMENTED 29MM JOANIE VIVACIT-E 07/20/2023???PSN FEM CR POR CCR STD SZ10 L 07/20/2023???PSN MC VE ASF L 12MM 8- 11 GH 07/20/2023???TIBIA PSN TIB POR 2 PEG SZ G L 07/20/2023 Education Materials [facility] Discharge Instructions ? Name: Sierra Mitchell Surgery: Left knee replacement ? General Instructions: ? Keep limb elevated as much as possible in the next 1-2 weeks in between PT / exercises. Foot must be 12 inches above heart for severe swelling. Do not sit with leg dangling below you for longer than a few minutes at a time-it exacerbates swelling! ? Keep dressing clean and dry. ? Apply ice to affected area 3-5 times daily for 20-30 minutes at a time Dressing Instructions: ? KNEE REPLACEMENTS: Physical therapy will remove your bandage at the first visit if you are an outpatient. If you stayed overnight, we removed your bandage. After dressing removal you may shower-do not submerge the wound in fluid! Do not pick at the wound. Do not apply lotions/creams/salves. EVERY MORNING- put on ANDRA stocking-then amado bandage from groin to top of ANDRA stocking- ON EVERY MORNING OFFEVERY NIGHT FOR FIRST 2 WEEKS. This is to help manage swelling! ? SWELLING AND BRUISING IS EXPECTED! BRUISING MIGHT SHOW UP ALONG THE WHOLE LEG. Extensive bruising is common. The joint will feel warm because it is likely swollen. Discharge medications: Pain Medication (narcotic): oxycodone use sparingly, this should make pain tolerable not completely???pain free?? Pain medicine alters your balance/coordination-you should not drive or operate heavy machinery while taking pain medicine. Blood Clot Prevention: Ecotrin 325mg twice a day x 6 weeks ? Other Medications: Celebrex for inflammation x 14 days Tylenol for pain over next few weeks, 650mg every 6-8 hours ? ALL narcotics WILL cause constipation! We suggest: Miralax ? Refills of pain medication: We require 24 hours notice for refills. In order to refill a medication before the weekend all requests must be in by at 12:00pm. All refill requests will be taken at [phone]. This is your responsibility to keep track of how much pain medication you have left. ? Activity: ? Full Weight Bearing as tolerated with gentle movement of the extremity Therapy/Visiting Nurses: ? Physical Therapy: this is usually already set up by the time you have surgery- if it has not been, please call to set up your therapy appointment within 1 day. If you are having issues getting this started please call our office for help ? Complications: If you experience the following call [phone]. Please try to call with questions during normal business hours. After hour calls should be for emergency use only. ? Red streaking extending out away from wound ? Drainage from wound- small amount of blood is ok, pus is not ? Fever (101 or above), nausea, vomiting-- inability to drink fluids ? Follow up Care: ? POST OP APPOINTMENT Date/Time: 07/28/23 @ 10:45am [place] [facility] Jocelinejoseph Pereiraleticia [place] ? Return to Work/School: not until follow up ? Patient Signature ? Please keep this handy at home so that you may refer to it if you think of a question. Patient/Cell Room Operator Signature Patient Name:SIERRA MITCHELL I have received this information and my questions have been answered. Patient/Cell Room Operator Name: Patient/Cell Room Operator Signature: Relationship to Patient: Witness Name/Signature: Date: Electronically Signed on: 07/20/2023 10:11 EDTSigned by:DARIN Patient Care team information Care Team Personnel Name: DIAMANTE DICKINSON Position: No Access Member Role: Primary Care Physician Address: Address: [address] [place] [address]- Care Team Related Persons Name: LATRICE MITCHELL
--- OUTSIDE RECORDS SUMMARY | 2024-06-05 14:52 | XMS_ITS | Continuity of Care Document ---
Author Organization [facility] Address [address] [place] [address] Care Team Providers Care Sheep Or Calf Grader Name Role Phone TEENADIAMANTE GRAY Primary Care Physician Encounter [facility] NBR [id number] Date(s): 04/09/23 - 04/09/23 [facility] Ambulatory Clinics [address] [place] [address] [place] Discharge Disposition: Home Allergies, [...] Member Role: Primary Care Physician Address: Address: [address] [place] [address] Care Team Related Persons Name: LATRICE MITCHELL
--- OUTSIDE RECORDS SUMMARY | 2024-06-05 14:52 | XMS_ITS | Continuity of Care Document ---
Author Organization [facility] Ambulatory [facility] Address [address] [place] [address] Care Team Providers Care Government Professor Name Role Phone TEENA DIAMANTE Valero Primary Care Physician Encounter [facility] NBR [id number] Date(s): 01/22/23 - 01/22/23 [facility] [address] [place] [address] [place] Encounter Diagnosis Bilateral primary osteoarthritis of knee(Discharge Diagnosis) - 01/21/23 Discharge Disposition: Home or Self Care Attending Physician: Valencia Bean CIVIL STRUCTURAL ENGINEER, Allergies, Adverse Reactions, Alerts No Known Allergies Assessment and Plan Future Appointments [place]ations [facility] [place], 0 Refill(s), TAKE ONE [...] Range]: 1 Peripheral Pulse Rate [60-100 bpm] 76 bp m (01/22/23 9:20 AM) Blood Pressure [90-140/60-90 mmHg] 138/8 0mmHg (01/22/23 9:20 AM) Weight 102.06 kg (01/22/23 9:20 AM) Weight Measured (lbs) 225.004 lb (01/22/23 9:20 AM) Height 175.25 cm (01/22/23 9:20 AM) Height/Length Measured (inches) 69 inch (01/22/23 9:20 AM) BSA Measured 2.23 m2 (01/22/23 9:20 AM) Body Mass Index 33.23 kg/m2 (01/22/23 9:20 AM) Social History Social History Type Response Tobacco Never tobacco user T obacco Use:. Sex Hospital Discharge Instructions Follow Up Care 01/08/2023 12:52:22 With:Valencia Bean APRN, Address: [address] [place] [address] When:Within 1 Week(s) Comments:EUFLEXXA #3 LEFT KNEE Physician Outpatient Note * Valencia Bean APRN,: PERFORM Event Display: Office Clinic Note Physician Authored Date: [id number] SIERRA MITCHELL :1960 Age:62 years Sex:Male Visit Date:01/22/2023 Primary Care Physician: DIAMANTE DICKINSON Chief Complaint EUFLEXXA #3 RIGHT AND LEFT KNEE History of Present Illness Sierra is a very pleasant 62-year-old man with bilateral knee OA confirmed radiographically. ??Euflexxa was started for the right knee??three weeks ago??and??one week ago for the left knee.?? He states both knees are feeling much better, however he has now decided to consider knee replacement. ??He has consultation scheduled with Dr. Negro??in March.?? No adverse reaction??with the injections, he is ready??for today's injections. Review of Systems Constitutional:?No??fevers,?No??chills,?No??sweats Respiratory:?No??shortness of breath,?No??cough Cardiovascular:?No??Chest pain,?No??palpitations,?No??syncope Gastrointestinal:?Nonausea,?No??vomiting,?No??diarrhea Musculoskeletal:??No??back pain,??No??neck pain,??No??joint pain,??No??muscle pain,??No??decreased range of motion Integumentary:?No??rash,?No??pruritus,?No??abrasions Neurologic: Alert & oriented X 4 Psychiatric:?No??anxiety,?No??depression Physical Exam Vitals & Measurements HR:??76??(Peripheral)?? BP:??138/80?? SpO2:??98%?? HT:??175.25??cm?? WT:??102.06??kg?? BMI:??33.23?? BSA:??2.23?? The patient is alert and oriented x3. ??Pleasant and cooperative. ??Well-dressed and well-groomed.?? Appears stated age and is well-nourished and well- developed.?? Examination of the bilateral knees is without deformity. ??Skin is intact.?? No signs or symptoms of infection. ??Gentle range of motion is without pain or discomfort. Procedure Risks, benefits and alternatives to??these injections are discussed with the patient, verbal consent is obtained. ??Under standard, sterile technique, the anterolateral injection sites of the bilateral knees are meticulously prepped with ChloraPrep x3.?? Then??Euflexxa 20 mg??is injected at each knee without difficulty. ??The patient tolerated both injections very well and dry, sterile bandages are applied.?? Postinjection instructions are provided. Assessment/Plan 1.??Bilateral primary osteoarthritis of knee??M17.0 Don is a pleasant 62-year-old man who??has bilateral knee OA confirmed radiographically. ??He is responding nicely to Euflexxa injections. ??He is ready for the final injection for the right knee today and the second injection for the left knee today.?? I am happy to give those injections for him. ??I will see him back next week for the final left knee injection.?? He may continue with supportivecare. ??He is in agreement with the above plan and is encouraged to contact the office at anytime with questions or concerns. Ordered: Euflexxa, 20 mg, Intra-articular, Once, First Dose: 01/22/23 9:47:00 EDT, Stop Date: 01/22/23 9:47:00 EDT, Physician Stop, Routine Euflexxa, 20 mg, Intra-articular, Once, First Dose: 01/22/23 9:47:00 EDT, Stop Date: 01/22/23 9:47:00 EDT, Physician Stop, Routine ?? Follow Up Instructions With When Contact Information Valencia Bean APRN, In 1 week [address] [place] [address]- Additional Instructions: EUFLEXXA #3 LEFT KNEE Problem List/Past Medical History Ongoing Arthritis of right acromioclavicular joint Bilateral primary osteoarthritis of knee Derangement of medial meniscus due to injury of knee HTN (hypertension) Idiopathic osteoarthritis Osteoarthritis of knee Osteoarthritis of right knee joint Historical No qualifying data Medications [facility] [place] amLODIPine 10 mg oral tablet atorvastatin [...] tobacco user Tobacco Use:. Electronically Signed on 01/22/23 09:48 AM Valencia Bean APRN, Patient Care team information Care Team Personnel Name: DIAMANTE DICKINSON Position: No Access Member Role: Primary Care Physician Address: Address: [address] [place] [id number] [place] [address] Care Team Related Persons Name: LATRICE MITCHELL
--- OUTSIDE RECORDS SUMMARY | 2024-06-05 14:52 | XMS_ITS | Continuity of Care Document ---
Author Organization [facility] Address [address] [place] [address] Care Team Providers Care Safety Glass Installer Name Role Phone DIAMANTE DICKINSON Primary Care Physician Encounter [facility] NBR [id number] Date(s): 09/01/23 - 09/01/23 [facility] [address] [place] [address] Encounter Diagnosis History of left knee replacement(Discharge Diagnosis) - 09/01/23 Discharge Disposition: Home or Self Care Attending Physician: uJstyna Ngero DO Referring Physician: DIAMANTE DICKINSON Allergies, Adverse Reactions, Alerts No Known Allergies Assessment and Plan Extracted from: Title:Office Visit Limited Author:Justyna jaramillo DO Date:09/01/23 1.??History of left knee rep lacement??Z96.652 Continue local wound care. ??Finish up antibiotics.?? Follow-up with me in 2 weeks??for repeat wound check. ??Hold physical therapy. Future Appointments Medications Albuterol (Eqv-ProAir HFA) 90 [...] bedtime, # 28 cap, 0 Refill(s), Pharmacy: [facility], 175, cm, 07/15/23 10:15:00 EST, Height, 100, kg, 07/15/23 10:21:00 EST, Weight Dosing Start Date: 07/20/23 Stop Date: 08/03/23 Status: Ordered cephalexin 500 mg oral capsule 500 mg = 1 cap, Oral, every 6 hr, # 40 cap, 2 Refill(s), Pharmacy: [facility], 160.02, cm, 08/18/23 10:24:00 EDT, Height, 99.79, kg, 08/18/23 10:25:00 EDT, Weight Dosing Start Date: 08/30/23 Stop Date: 09/29/23 Status: Ordered Ecotrin 325 mg oral delayed release tablet 325 mg = 1 tab, Oral, BID, # 84 tab, 0 Refill(s), Pharmacy: [facility], 175, cm, 07/15/23 10:15:00 EST, [...] Daily, # 238 g, 0 Refill(s), Pharmacy: [facility], 175, cm, 07/15/23 10:15:00 EST, Height, 100, kg, 07/15/23 10:21:00 EST, Weight Dosing Start Date: 07/20/23 Status: Ordered oxyCODONE 5 mg oral tablet See Instructions, PRN as needed for pain, 1-2 tab Oral every 4- 6 hr, # 60 tab, 0 Refill(s), Pharmacy: [facility], 175, cm, 07/15/23 10:15:00 EST, Height, 100, kg, 07/15/23 10:21:00 EST, Weight Dosing Start Date: 07/20/23 Status: Ordered rifAMPin 300 mg oral capsule 300 mg = 1 cap, Oral, every 12 hr, # 20 cap, 2 Refill(s), Pharmacy: [facility], 160.02, cm, 08/18/23 10:24:00 EDT, Height, 99.79, kg, 08/18/23 10:25:00 EDT, Weight Dosing Start Date: 08/30/23 Stop Date: 09/29/23 Status: Ordered Tylenol 8 HR Arthritis Pain 650 mg oral tablet, extended release 650 mg = 1 tab, Oral, every 8 hr, # 50 tab, 0 Refill(s), Pharmacy: [facility], 175, cm,07/15/23 10:15:00 EST, Height, [...] case 2auto-populated from documented surgical case 3x2 Vital Signs Most recent to oldest [Reference Range]: 1 Peripheral Pulse Rate [60-100 bpm] 74 bp m (09/01/23 11:58 AM) Blood Pressure [90-140/60-90 mmHg] 140/7 2mmHg (09/01/23 11:58 AM) Mean Arterial Pressure, Cuff [65-140 mmH g] 95 mmHg (09/01/23 11:58 AM) Weight 99.79 kg (09/01/23 11:58 AM) Weight Measured (lbs) 219.999 lb (09/01/23 11:58 AM) Weight Dosing 99.790 kg (09/01/23 11:58 AM) Height 175.26 cm (09/01/23 11:58 AM) Height/Length Measured (inches) 69 inch (09/01/23 11:58 AM) BSA Measured 2.2 m2 (09/01/23 11:58 AM) Body Mass Index 32.49 kg/m2 (09/01/23 11:58 AM) Social History Social History Type Response Tobacco Never tobacco user T obacco Use:. Sex Implantable Device List Procedure Provider Procedure Date Device Type Site Total Knee Arthroplasty Justyna TorresDO clint 07/20/23 U nknown Knee L Device Identifier Serial Number Lot or Batch Number Manufacturing Date Expiration Date Distinct Identification Code MRI Safety Implantable Status Assigning Authority Unknown Unknown [id number] Unknown 03/13/28 Unknown Unknown Active Unknown Unknown Unknown [id number] Unknown 11/05/25 Unknown Unknown Active Unknown Unknown Unknown [id number] Unknown 03/05/33 Unknown Unknown Active Unknown Unknown Unknown [id number] Unknown 05/07/33 Unknown Unknown Active Unknown Unknown Unknown [id number] Unknown 03/05/28 Unknown Unknown Active Unknown Procedure Provider Procedure Date Device Type Site Total Knee Arthroplasty Unknown 04/26/23 Unknown K nee R Device Identifier Serial Number Lot or Batch Number Manufacturing Date Expiration Date Distinct Identification Code MRI Safety Implantable Status Assigning Authority Unknown Unknown [id number] Unknown 09/06/32 Unknown Unknown Active Unknown Unknown Unknown [id number] Unknown 08/06/25 Unknown Unknown Active Unknown Unknown Unknown [id number] Unknown 02/02/28 Unknown Unknown Active Unknown Unknown Unknown [id number] Unknown 08/31/32 Unknown Unknown Active Unknown Unknown Unknown [id number] Unknown 07/10/27 Unknown Unknown Active Unknown Physician Outpatient Note * Justyna Torreshur, DO: PERFORM Event Display: Office Clinic Note Physician Authored Date: [id number] SIERRA MITCHELL :1960 Age:62 years Sex:Male Visit Date:09/01/2023 Primary Care Physician: DIAMANTE DICKINSON Chief Complaint f/u left total knee arthroplasty History of Present Illness 62-year-old male approximately 6-week status post left total knee. ??Here for??6-week follow-up.?? He has been doing well but??the left knee has developed??what is probably a sterile stitch abscess??in the midportion of the wound and he is here for recheck. Physical Exam Vitals & Measurements HR:??74??(Peripheral)?? BP:??140/72?? SpO2:??99%?? HT:??175.26??cm?? WT:??99.79??kg?? BMI:??32.49?? Pain Score:??4?? BSA:??2.2?? Ambulates in the office with a normal gait unassisted.?? Left??midline incision??with??a spot of bloody drainage.?? Small amount of erythema and about a 1 cm diameter. ??He has been on Keflex??and??Bactrim??x 2 days. Assessment/Plan 1.??History of left knee replacement??Z96.652 Continue local wound care. ??Finish up antibiotics.?? Follow-up with me in 2 weeks??for repeat wound check. ??Hold physical therapy. Problem List/Past Medical History Ongoing Arthritis of [...] Oral, Daily betamethasone dipropionate, augmented 0.05% topical ointment, See Instructions celecoxib 200 mg oral capsule, 200 mg= 1 cap, Oral, BID cephalexin 500 mg oral capsule, 500 mg= 1 cap, Oral, every 6 hr, 2 refills Ecotrin 325 mg oral delayed release tablet, 325 mg= 1 tab, Oral, BID hydroCHLOROthiazide 25 mg oral tablet, 25 mg= 1 tab, Oral, Daily ketoconazole 2% topical cream MiraLax oral powder for reconstitution, 17 g, Oral, Daily oxyCODONE 5 mg oral tablet, See Instructions, PRN rifAMPin 300 mg oral capsule, 300 mg= 1 cap, Oral, every 12 hr, 2 refills Tylenol 8 HR Arthritis Pain 650 mg oral tablet, extended release, 650 mg= 1 tab, Oral, every 8 hr Allergies No Known Allergies No Known Medication Allergies Electronically Signed on 09/01/23 12:12 PM Justyna Negro DO Patient Care team information Care Team Personnel Name: DIAMANTE DICKINSON Position: No Access Member Role: Primary Care Physician Address: Address: [address] [place] [address]- Care Team Related Persons Name: LATRICE MITCHELL
--- OUTSIDE RECORDS SUMMARY | 2024-06-05 14:52 | XMS_ITS | Continuity of Care Document ---
Author Organization [facility] Address [address] [place] [address] Care Team Providers Care Consulting Networking Engineer Name Role Phone TEENA DIAMANTE Marylu Primary Care Physician [phone] Encounter [facility] NBR [id number] Date(s): 01/29/23 - 01/29/23 [facility] [address] [place], [place] [address] Encounter Diagnosis Osteoarthritis of knees, bilateral(Discharge Diagnosis) - 01/29/23 Discharge Disposition: Home or Self Care Attending Physician: Valencia Bean LEASING AGENT, Allergies, Adverse Reactions, Alerts No Known Allergies Assessment and Plan Future Appointments Medications [facility] Prescription 30 EA, 0 [...] Range]: 1 Peripheral Pulse Rate [60-100 bpm] 77 bp m (01/29/23 9:00 AM) Blood Pressure [90-140/60-90 mmHg] 144/8 0mmHg *HI* (01/29/23 9:00 AM) Social History Social History Type Response Tobacco Never tobacco user T obacco Use:. Sex Hospital Discharge Instructions Follow Up Care 01/15/2023 09:04:15 With:Return to this practice Address: When: only if needed Physician Outpatient Note * Valencia Bean APRN,: PERFORM Event Display: Office Clinic Note Physician Authored Date: [id number] SIERRA MITCHELL :1960 Age:62 years Sex:Male Visit Date:01/29/2023 Primary Care Physician: DIAMANTE DICKINSON Chief Complaint Euflexxa #3 Left knee History of Present Illness Sierra is a very pleasant 62-year-old man with bilateral knee OA confirmed radiographically. ??He completed??Euflexxa for the right knee??last week. ??He is due for the final Euflexxa injection for the left knee today. ??He reports that both knees are feeling much better. ??He typically gets a year ofrelief with the injections, but is now ready to move forward with knee replacement with Dr. Negro. ??Consult has been scheduled. ??He has had no adverse reactions with his injections and is readyto complete the series on the left today.?? Review of Systems Constitutional:?No??fevers,?No??chills,?No??sweats Respiratory:?No??shortness of breath,?No??cough Cardiovascular:?No??Chest pain,?No??palpitations,?No??syncope Gastrointestinal:?Nonausea,?No??vomiting,?No??diarrhea Musculoskeletal:??No??back pain,??No??neck pain,??No??joint pain,??No??muscle pain,??No??decreased range of motion Integumentary:?No??rash,?No??pruritus,?No??abrasions Neurologic: Alert & oriented X 4 Psychiatric:?No??anxiety,?No??depression Physical Exam Vitals & Measurements HR:??77??(Peripheral)?? BP:??144/80?? SpO2:??95%?? The patient is alert and oriented x3. [...] are provided. Assessment/Plan 1.??Osteoarthritis of knees, bilateral??M17.0 Watson is a very pleasant 62-year-old man with bilateral knee OA confirmed radiographically. ??Euflexxa for the right knee was completed last week. ??He is due for the final injection??left knee today. ??Both knees are feeling??better.?? Happy to give him the??final injection today. ??He is??going to be seeing Dr. Negro for total knee consult.?? In the meantime he may continue with all supportive care. ??He is in agreement with the above plan and is encouraged to contact me with questions or concerns at any time. Ordered: Euflexxa, 20 mg, Intra-articular, Once, First Dose: 01/29/23 9:31:00 EDT, Stop Date: 01/29/23 9:31:00 EDT, Physician Stop, Routine ?? Follow Up Instructions With When Contact Information Return to this practice Only if needed Additional Instructions: Problem List/Past Medical History Ongoing Arthritis of right acromioclavicular joint Bilateral primary osteoarthritis of knee Derangement of medial meniscus due to injury of knee HTN (hypertension) Idiopathic osteoarthritis Osteoarthritis of knee Osteoarthritis of right knee joint Historical No qualifying data Medications [facility] Prescription amLODIPine 10 mg oral tablet atorvastatin 40 mg oral tablet, 40 mg= 1 tab, Oral, Daily betamethasone dipropionate, augmented 0.05% topical ointment Euflexxa, 20 mg, Intra-articular, Once hydroCHLOROthiazide 25 mg oral tablet, 25 mg= 1 tab, Oral, Daily ibuprofen 200 mg oral tablet, 400 mg= 2 tab, Oral, every 4 hr, PRN ketoconazole 2% topical cream Allergies No Known Allergies No Known Medication Allergies Social History Electronic Cigarette/Vaping Electronic Cigarette Use: Never. Tobacco Never tobacco user Tobacco Use:. Electronically Signed on 01/29/23 09:31 AM Valencia Bean APRN, Patient Care team information Care Team Personnel Name: DIAMANTE DICKINSON Position: No Access Member Role: Primary Care Physician Address: Address: [address] [place] [address]- Care Team Related Persons Name: LATRICE MITCHELL
--- OUTSIDE RECORDS SUMMARY | 2024-06-05 14:52 | XMS_ITS | Continuity of Care Document ---
Author Organization [facility] Address [address] [place] [address] Care Team Providers Care Shorts Sifter Name Role Phone Vladislav Gatesakiko Valero Primary Care Physician [phone] Encounter [facility] NBR [id number] Date(s): 01/08/23 - 01/08/23 [facility] [address] [place] [address]- Discharge Disposition: Home or Self Care Attending Physician: Mook Carrillo MD, I Admitting Physician: Mook Carrillo MD, I Referring Physician: Mook Carrillo MD, I Allergies, Adverse Reactions, Alerts No Known Allergies Assessment and Plan Future Appointments Medications amLODIPine 10 mg oral tablet 30 [...] Bilateral primary osteoarthritis of knee Confirmed Active Results Radiology Reports * Exam Date Time Procedure Performing Provider Status 01/08/23 12:34 PM XR Knee Complete 4+ Views Left Yan Devlin; Lulu (Verified) Notes: (XR Knee Complete 4+ Views Left) Reason For Exam: LEFT KNEE XR Knee Complete 4+ Views Left EXAM DESCRIPTION: XR Knee Complete 4+ Views Left 01/08/2023 INDICATION: LEFT KNEE COMPARISON: 10/10/2019 IMPRESSION: No acute fracture or dislocation Medial femorotibial and patellofemoral compartment joint space narrowing and osteophyte formation consistent with osteoarthritic changes. Several calcified densities posteromedial to the knee joint suspicious for calcified bodies within a popliteal cyst as described previously. Small ovoid area of lucency along the medial femoral condyle articular surface region which may reflect small subchondral cyst or possible erosive change. JOB #: [id number] Final Signed by: Phillip Torres MD Signed (Electronic Signature): 01/08/2023 12:42 pm * Exam Date Time Procedure Performing Provider Status 01/08/23 12:34 PM XR Knee Complete 4+ Views Right Yan Devlin (Verified) Notes: (XR Knee Complete 4+ Views Right) Reason For Exam: RIGHT KNEE XR Knee Complete 4+ Views Right EXAM DESCRIPTION: XR Knee Complete 4+ Views Right 01/08/2023 INDICATION: RIGHT KNEE COMPARISON: 10/10/2019 IMPRESSION: No acute fracture or dislocation Medial femorotibial and patellofemoral compartment joint space narrowing and osteophyte formation consistent with osteoarthritic changes. Smoothly marginated lytic lesion involving the lateral aspect of the proximal tibia without significant change from prior study with nonaggressive appearance. JOB #: [id number] Final Signed by: Phillip Torres MD Signed (Electronic Signature): 01/08/2023 12:40 pm Social History Social History Type Response Tobacco Never tobacco user T obacco Use:. Sex Patient Care team information Care Team Personnel Name: Lambert Gates Position: No Access Member Role: Primary Care Physician Address: Address: [address] [place] [address] [place] Care Team Related Persons Name: LATRICE MITCHELL
--- OUTSIDE RECORDS SUMMARY | 2024-06-05 14:52 | XMS_ITS | Continuity of Care Document ---
Author Organization [facility] Address [address] [place] [address] Care Team Providers Care Dental Financial Coordinator Name Role Phone DIAMANTE DICKINSON Primary Care Physician Encounter [facility] NBR [id number] Date(s): 07/14/23 - 07/14/[address] [address] Encounter Diagnosis Encounter for screening for diseases of the blood and blood-forming organs and certain disorders involving the immune mechanism(Final) - Encounter for screening for other metabolic disorders(Final) - Encounter for screening for other infectious and parasitic diseases(Final) - Unilateral primary osteoarthritis, left knee(Final) - Encounter for preprocedural laboratory examination(Final) - Discharge Disposition: Home or Self Care Attending Physician: Joceline Weiss APRN Admitting Physician: Joceline Weiss APRN Referring Physician: Joceline Weiss APRN Allergies, Adverse Reactions, Alerts No Known Allergies [...] Completed 1auto-populated from documented surgical case 2x2 Results Laboratory List Name Date CBC w/ Diff 07/14/23 Comprehensive Metabolic Panel (CMP) Staph Nasal Complete (GeneXpert) (MRSA/M SSA Nasal (GeneXpert)) 07/14/23 Urinalysis with Micro if Indicated and C ulture if Indicated 07/14/23 Automated Diff 07/14/23 Most recent to oldest [Reference Range]: 1 WBC [4.8-10.8 K/mcL] 7.3 K/mcL (07/14/23 10:00 AM) RBC [4.70-6.10 Million/mcL] 4.64 Million /mcL *LOW* (07/14/23 10:00 AM) Neutro Auto [42.2-75.2 %] 57.0 % (07/14/23 10:00 AM) Lymph Auto [20.5-51.1 %] 28.4 % (07/14/23 10:00 AM) Lake Auto [1.7-9.3 %] 11.5 % *HI* (07/14/23 10:00 AM) Basophil Auto [0.0-0.8 %] 0.6 % (07/14/23 10:00 AM) BUN [7-25 mg/dL] 20 mg/dL (07/14/23 10:00 AM) UA Color [Yellow] Yellow (07/14/23 10:00 AM) Glucose Level [70-109 mg/dL] 96 mg/dL (07/14/23 10:00 AM) Potassium Level [3.5-5.1 mmol/L] 4.3 mmo l/L (07/14/23 10:00 AM) Baso Absolute [0.0-0.2 K/mcL] 0.0 K/mcL (07/14/23 10:00 AM) MCV [80.0-94.0 fL] 96.1 fL *HI* (07/14/23 10:00 AM) UA Urobilinogen [0.2] 0.2 (07/14/23 10:00 AM) UA Bili [Negative] Negative (07/14/23 10:00 AM) UA Ketones [Negative] Negative (07/14/23 10:00 AM) AST [13-39 IntlUnit/L] 17 IntlUnit/L (07/14/23 10:00 AM) ALT [7-52 IntlUnit/L] 17 IntlUnit/L (07/14/23 10:00 AM) MCHC [32.0-37.0 g/dL] 34.3 g/dL (07/14/23 10:00 AM) Osmolality [275-295 mOsm/kg] 276 mOsm/kg (07/14/23 10:00 AM) Sodium Level [136-145 mmol/L] 137 mmol/L (07/14/23 10:00 AM) UA Leuk Est [Negative] Negative (07/14/23 10:00 AM) Lymph Absolute [1.2-3.4 K/mcL] 2.1 K/mcL (07/14/23 10:00 AM) UA Nitrite [Negative] Negative (07/14/23 10:00 AM) UA Glucose [Negative] Negative (07/14/23 10:00 AM) Hct [42.0-52.0 %] 44.6 % (07/14/23 10:00 AM) Calcium Level [8.6-10.3 mg/dL] 9.7 mg/dL (07/14/23 10:00 AM) Lake Absolute [0.1-0.6 K/mcL] 0.8 K/mcL *HI* (07/14/23 10:00 AM) Albumin Level [3.5-5.7 g/dL] 4.5 g/dL (07/14/23 10:00 AM) Protein Total [6.4-8.9 g/dL] 7.2 g/dL (07/14/23 10:00 AM) UA Protein [Negative] Negative (07/14/23 10:00 AM) MCH [27.0-31.0 pg] 33.0 pg *HI* (07/14/23 10:00 AM) Neutro Absolute [1.4-6.5 K/mcL] 4.2 K/mc L (07/14/23 10:00 AM) Bilirubin Total [0.3-1.0 mg/dL] 0.7 mg/d L (07/14/23 10:00 AM) Hgb [14.0-18.0 g/dL] 15.3 g/dL (07/14/23 10:00 AM) Alk Phos [34-104 IntlUnit/L] 80 IntlUnit /L (07/14/23 10:00 AM) UA Blood [Negative] Negative (07/14/23 10:00 AM) MPV [7.4-10.4 fL] 6.8 fL *LOW* (07/14/23 10:00 AM) UA Spec Grav [1.001-1.030] 1.010 (07/14/23 10:00 AM) Platelets [130-400 K/mcL] 229 K/mcL (07/14/23 10:00 AM) CO2 [21-31 mmol/L] 28 mmol/L (07/14/23 10:00 AM) Eos Absolute [0.0-0.2 K/mcL] 0.2 K/mcL (07/14/23 10:00 AM) UA pH [5.00-9.00] 6.00 (07/14/23 10:00 AM) UA Appear [Clear] Clear (07/14/23 10:00 AM) Chloride Level [98-107 mmol/L] 101 mmol/ L (07/14/23 10:00 AM) RDW-CV [11.5-14.5 %] 12.0 % (07/14/23 10:00 AM) A/G Ratio [1.0-2.5 g/dL] 1.7 g/dL (07/14/23 10:00 AM) BUN/Creat Ratio [8.0-20.0] 20.0 (07/14/23 10:00 AM) Globulin [2.3-3.5 g/dL] 2.7 g/dL (07/14/23 10:00 AM) MRSA Screen -GeneXpert [Negative] Negati ve (07/14/23 10:00 AM) Urine Srce Clean Catch (07/14/23 10:00 AM) MSSA Screen -GeneXpert [Negative] Negati ve (07/14/23 10:00 AM) Creatinine Level [0.70-1.30 mg/dL] 1.00 mg/dL (07/14/23 10:00 AM) Anion Gap [3.0-12.0] 8.0 (07/14/23 10:00 AM) Eos, Auto [0.00-3.00 %] 2.50 % (07/14/23 10:00 AM) eGFR CKD-EPI [>=60 mL/min/1.73 m2] 85 mL /min/1.73 m2 (07/14/23 10:00 AM) Social History Social History Type Response Tobacco Never tobacco user T obacco Use:. Sex Implantable Device List Procedure Provider Procedure Date Device Type Site Total Knee Arthroplasty Unknown 04/26/23 Unknown K stella R Device Identifier Serial Number Lot or Batch Number Manufacturing Date Expiration Date Distinct Identification Code MRI Safety Implantable Status Assigning Authority Unknown Unknown [id number] Unknown 09/06/32 Unknown Unknown Active Unknown Unknown Unknown [id number] Unknown 08/06/25 Unknown Unknown Active Unknown Unknown Unknown [id number] Unknown 02/02/28 Unknown Unknown Active Unknown Unknown Unknown [id number] Unknown 08/31/32 Unknown Unknown Active Unknown Unknown Unknown [id number] Unknown 07/10/27 Unknown Unknown Active Unknown Patient Care team information Care Team Personnel Name: DIAMANTE DICKINSON Position: No Access Member Role: Primary Care Physician Address: Address: [address] [place] [id number] [place] [address] Care Team Related Persons Name: LATRICE MITCHELL
--- OUTSIDE RECORDS SUMMARY | 2024-06-05 14:52 | XMS_ITS | Continuity of Care Document ---
Author Organization [facility] Address [address] [place] [address] Care Team Providers Care Clay Transporter Name Role Phone DIAMANTE DICKINSNO Primary Care Physician Encounter [facility] NBR [id number] Date(s): 08/11/23 - 08/11/23 [facility] [address] [place], [place] [address] Discharge Disposition: Home Allergies, Adverse Reactions, Alerts [...] bedtime, # 28 cap, 0 Refill(s), Pharmacy: [facility], 175, cm, 07/15/23 10:15:00 EST, Height, 100, kg, 07/15/23 10:21:00 EST, Weight Dosing Start Date: 07/20/23 Stop Date: 08/03/23 Status: Ordered Ecotrin 325 mg oral delayed release tablet 325 mg = 1 tab, Oral, BID, # 84 tab, 0 Refill(s), Pharmacy: [facility], 175, cm, 07/15/23 10:15:00 EST, Height, [...] Daily, # 238 g, 0 Refill(s), Pharmacy: [facility], 175, cm, 07/15/23 10:15:00 EST, Height, 100, kg, 07/15/23 10:21:00 EST, Weight Dosing Start Date: 07/20/23 Status: Ordered oxyCODONE 5 mg oral tablet See Instructions, PRN as needed for pain, 1-2 tab Oral every 4- 6 hr, # 60 tab, 0 Refill(s), Pharmacy: [facility], 175, cm, 07/15/23 10:15:00 EST, Height, 100, kg, 07/15/23 10:21:00 EST, Weight Dosing Start Date: 07/20/23 Status: Ordered Tylenol 8 HR Arthritis Pain 650 mg oral tablet, extended release 650 mg = 1 tab, Oral, every 8 hr, # 50 tab, 0 Refill(s), Pharmacy: [facility], 175, cm,07/15/23 10:15:00 EST, Height, 100, [...] Type Site Total Knee Arthroplasty Justyna Negro, 07/20/23 U nknown Knee L Device Identifier Serial Number Lot or Batch Number Manufacturing Date Expiration Date Distinct Identification Code MRI Safety Implantable Status Assigning Authority Unknown Unknown [id number] Unknown 03/13/28 Unknown Unknown Active Unknown Unknown Unknown [id number] Unknown 11/05/25 Unknown Unknown Active Unknown Unknown Unknown [id number] Unknown 03/05/33 Unknown Unknown Active Unknown Unknown Unknown [id number] Unknown 05/07/33 Unknown Unknown Active Unknown Unknown Unknown [id number] Unknown 03/05/28 Unknown Unknown Active Unknown Procedure Provider Procedure Date Device Type Site Total Knee Arthroplasty Unknown 04/26/23 Unknown K nee R Device Identifier Serial Number Lot or Batch Number Manufacturing Date Expiration Date Distinct Identification Code MRI Safety Implantable Status Assigning Authority Unknown Unknown [id number] Unknown 09/06/32 Unknown Unknown Active Unknown Unknown Unknown [id number] Unknown 08/06/25 Unknown Unknown Active Unknown Unknown Unknown [id number] 2 Unknown 02/02/28 Unknown Unknown Active Unknown Unknown Unknown [id number] 9 Unknown 08/31/32 Unknown Unknown Active Unknown Unknown Unknown [id number] Unknown 07/10/27 Unknown Unknown Active Unknown Patient Care team information Care Team Personnel Name: DIAMANTE DICKINSON Position: No Access Member Role: Primary Care Physician Address: Address: [address] [place] [id number] [place] [address] Care Team Related Persons Name: LATRICE MITCHELL
--- OUTSIDE RECORDS SUMMARY | 2024-06-05 14:52 | XMS_ITS | Continuity of Care Document ---
Author Organization [facility] Address [address] [place] [address] Care Team Providers Care Cork Sorter Name Role Phone DIAMANTE DICKINSON Primary Care Physician [phone] Encounter [facility] NBR [id number] Date(s): 09/15/23 - 09/15/23 [facility] [address] [place], [place] [address] Encounter Diagnosis History of left knee replacement(Discharge Diagnosis) - 09/15/23 Discharge Disposition: Home or Self Care Attending Physician: Justyna Negro DO Referring Physician: DIAMANTE DICKINSON Allergies, Adverse Reactions, Alerts No Known Allergies Assessment and Plan Extracted from: Title:Office Visit Limited Author:Justyna jaramillo DO Date:09/15/23 1.??History of left knee rep lacement??Z96.652 Progress activity as as tolerated. ??Dental precautions reviewed.?? Restart physical therapy. Medications Albuterol (Eqv-ProAir HFA) 90 mcg/inh inhalation [...] bedtime, # 28 cap, 0 Refill(s), Pharmacy: [facility], 175, cm, 07/15/23 10:15:00 EST, Height, 100, kg, 07/15/23 10:21:00 EST, Weight Dosing Start Date: 07/20/23 Stop Date: 08/03/23 Status: Ordered cephalexin 500 mg oral capsule 500 mg = 1 cap, Oral, every 6 hr, # 40 cap, 2 Refill(s), Pharmacy: [facility], 160.02, cm, 08/18/23 10:24:00 EDT, Height, 99.79, kg, 08/18/23 10:25:00 EDT, Weight Dosing Start Date: 08/30/23 Stop Date: 09/29/23 Status: Ordered Ecotrin 325 mg oral delayed release tablet 325 mg = 1 tab, Oral, BID, # 84 tab, 0 Refill(s), Pharmacy: [facility], 175, cm, 07/15/23 10:15:00 EST, [...] Daily, # 238 g, 0 Refill(s), Pharmacy: [facility], 175, cm, 07/15/23 10:15:00 EST, Height, 100, kg, 07/15/23 10:21:00 EST, Weight Dosing Start Date: 07/20/23 Status: Ordered oxyCODONE 5 mg oral tablet See Instructions, PRN as needed for pain, 1-2 tab Oral every 4- 6 hr, # 60 tab, 0 Refill(s), Pharmacy: [facility], 175, cm, 07/15/23 10:15:00 EST, Height, 100, kg, 07/15/23 10:21:00 EST, Weight Dosing Start Date: 07/20/23 Status: Ordered rifAMPin 300 mg oral capsule 300 mg = 1 cap, Oral, every 12 hr, # 20 cap, 2 Refill(s), Pharmacy: [facility], 160.02, cm, 08/18/23 10:24:00 EDT, Height, 99.79, kg, 08/18/23 10:25:00 EDT, Weight Dosing Start Date: 08/30/23 Stop Date: 09/29/23 Status: Ordered Tylenol 8 HR Arthritis Pain 650 mg oral tablet, extended release 650 mg = 1 tab, Oral, every 8 hr, # 50 tab, 0 Refill(s), Pharmacy: [facility], 175, cm,07/15/23 10:15:00 EST, Height, [...] Most recent to oldest [Reference Range]: 1 Blood Pressure [90-140/60-90 mmHg] 130/7 2mmHg (09/15/23 11:27 AM) Mean Arterial Pressure, Cuff [65-140 mmH g] 91 mmHg (09/15/23 11:27 AM) Weight 99.79 kg (09/15/23 11:27 AM) Weight Measured (lbs) 219.999 lb (09/15/23 11:27 AM) Weight Dosing 99.790 kg (09/15/23 11:27 AM) Height 175.26 cm (09/15/23 11:27 AM) Height/Length Measured (inches) 69 inch (09/15/23 11:27 AM) BSA Measured 2.2 m2 (09/15/23 11:27 AM) Body Mass Index 32.49 kg/m2 (09/15/23 11:27 AM) Social History Social History Type Response Tobacco Never tobacco user T obacco Use:. Sex Implantable Device List Procedure Provider Procedure Date Device Type Site Total Knee Arthroplasty Justyna Negro, DO 07/20/23 U nknown Knee L Device Identifier Serial Number Lot or Batch Number Manufacturing Date Expiration Date Distinct Identification Code MRI Safety Implantable Status Assigning Authority Unknown Unknown [id number] Unknown 03/13/28 Unknown Unknown Active Unknown Unknown Unknown [id number] Unknown 11/05/25 Unknown Unknown Active Unknown Unknown Unknown [id number] Unknown 03/05/33 Unknown Unknown Active Unknown Unknown Unknown [id number] Unknown 05/07/33 Unknown Unknown Active Unknown Unknown Unknown [id number] Unknown 03/05/28 Unknown Unknown Active Unknown Procedure Provider Procedure Date Device Type Site Total Knee Arthroplasty Unknown 04/26/23 Unknown K nee R Device Identifier Serial Number Lot or Batch Number Manufacturing Date Expiration Date Distinct Identification Code MRI Safety Implantable Status Assigning Authority Unknown Unknown [id number] Unknown 09/06/32 Unknown Unknown Active Unknown Unknown Unknown [id number] Unknown 08/06/25 Unknown Unknown Active Unknown Unknown Unknown [id number] Unknown 02/02/28 Unknown Unknown Active Unknown Unknown Unknown [id number] Unknown 08/31/32 Unknown Unknown Active Unknown Unknown Unknown [id number] Unknown 07/10/27 Unknown Unknown Active Unknown Physician Outpatient Note * Justyna Negro, DO: PERFORM Event Display: Office Clinic Note Physician Authored Date: [id number] SIERRA MITCHELL :1960 Age:62 years Sex:Male Visit Date:09/15/2023 Primary Care Physician: DIAMANTE DICKINSON Chief Complaint status post left TKA wound check History of Present Illness 8 weeks??status post left total knee doing very well functionally. ??I had brought him back in 2 weeks later because he had??what appeared to be a sterile stitch abscess and I wanted to confirm that the skin was okay. Physical Exam Vitals & Measurements BP:??130/72?? HT:??175.26??cm?? WT:??99.79??kg?? BMI:??32.49?? Pain Score:??3?? BSA:??2.2?? Ambulates in the office with a normal gait unassisted. ??His the left knee??midline incision is healing nicely. ??The area that was concerning 2 weeks ago??is almost completely closed and is granulated at approximately 2 mm diameter. ??Looks great. Assessment/Plan 1.??History of left knee replacement??Z96.652 Progress activity as as tolerated. ??Dental precautions reviewed.?? Restart physical therapy. Problem List/Past Medical History Ongoing [...] No Known Medication Allergies Electronically Signed on 09/15/23 11:32 AM Justyna Negro, DO Patient Care team information Care Team Personnel Name: DIAMANTE DICKINSON Position: No Access Member Role: Primary Care Physician Address: Address: [address] [place] [address]- Care Team Related Persons Name: LATRICE MITCHELL
--- OUTSIDE RECORDS SUMMARY | 2024-06-05 14:52 | XMS_ITS | Continuity of Care Document ---
Author Organization [facility] Address [address] [place] [address] Encounter [facility] NBR [id number] Date(s): 03/13/22 - 03/13/22 [facility] [address] [place], [place] [address] Encounter Diagnosis Bilateral primary osteoarthritis of knee(Discharge Diagnosis) - 03/13/22 Discharge Disposition: Home or Self Care Attending Physician: Mook Carrillo MD Allergies, Adverse Reactions, Alerts No Known Medication Allergies Assessment and Plan Future Appointments Functional Status 03/13/22 Other exposure to Infectious Disease Non e [...] Range]: 1 Peripheral Pulse Rate [60-100 bpm] 68 bp m (03/13/22 2:47 PM) Blood Pressure [90-140/60-90 mmHg] 126/7 4mmHg (03/13/22 2:47 PM) Weight 104.33 kg (03/13/22 2:47 PM) Weight Measured (lbs) 230.008 lb (03/13/22 2:47 PM) Height 175.26 cm (03/13/22 2:47 PM) Height/Length Measured (inches) 69 inch (03/13/22 2:47 PM) BSA Measured 2.25 m2 (03/13/22 2:47 PM) Body Mass Index 33.97 kg/m2 (03/13/22 2:47 PM) Social History Social History Type Response Tobacco Never tobacco user T obacco Use:. Sex Physician Outpatient Note * Mook Carrillo MD: PERFORM Event Display: Office Clinic Note Physician Authored Date: [id number] SIERRA MITCHELL :1960 Age:61 years Sex:Male Visit Date:03/13/2022 Chief Complaint B/L Euflexxa #2 History of Present Illness Patient returns today for his second Euflexxa injection to his bilateral knees Physical Exam Vitals & Measurements HR:??68??(Peripheral)?? BP:??126/74?? SpO2:??97%?? HT:??175.26??cm?? WT:??104.33??kg?? BMI:??33.97?? BSA:??2.25?? Examination right knee shows a small effusion, full range of motion,??medial joint line tenderness, Knee shows a range from 3 to 125 degrees, small to moderate effusion, medial joint line tenderness Procedure After discussing risks and benefits under sterile conditions I injected??the right knee with 1 syringe of Euflexxa, Discussing risk and benefits under sterile conditions I injected the patient's left knee with 1 syringe of Euflexxa Assessment/Plan 1.??Bilateral primary osteoarthritis of knee??M17.0 Patient has now had a second Euflexxa injection into bilateral knees, will return in a week for injection #3 Ordered: Euflexxa, 10 mg, Intra-articular, Once, First Dose: 03/13/22 15:18:00 EDT, Stop Date: 03/13/22 15:18:00 EDT, Physician Stop, Routine ?? Problem List/Past Medical History Ongoing Bilateral primary osteoarthritis of knee HTN (hypertension) Historical No qualifying data Medications atorvastatin 40 mg oral tablet, 40 mg= 1 tab, Oral, Daily Euflexxa, 10 mg, Intra-articular, Once hydroCHLOROthiazide 25 mg oral tablet, 25 mg= 1 tab, Oral, BID ibuprofen 200 mg oral tablet, 400 mg= 2 tab, Oral, every 4 hr, PRN Allergies No Known Medication Allergies Social History Electronic Cigarette/Vaping Electronic Cigarette Use: Never. Tobacco Never tobacco user Tobacco Use:. Electronically Signed on 03/13/22 03:18 PM Mook Carrillo MD
--- OUTSIDE RECORDS SUMMARY | 2024-06-05 14:52 | XMS_ITS | Continuity of Care Document ---
Author Organization [facility] Address [address] [place] [address] Care Team Providers Care Occupational Health And Safety Manager Name Role Phone DIAMANTE DICKINSON Primary Care Physician Encounter [facility] NBR [id number] Date(s): 06/10/23 - 06/10/[address] [address] Encounter Diagnosis Aftercare following joint replacement surgery(Final) - Presence of right artificial knee joint(Final) - Discharge Disposition: Home or Self Care Attending Physician: Justyna Negro DO Admitting Physician: Justyna Negro DO Allergies, Adverse Reactions, [...] tab, Oral, Daily, 0 Refill(s) Start Date: 10/25/22 Status: Ordered ketoconazole 2% topical cream , APPLY TWICE DAILY TO AFFECTED AREAS ON THE FACE NEEDED, 0 Refill(s) Start Date: 01/15/23 Status: Ordered Tylenol 8 HR Arthritis Pain 650 mg oral tablet, extended release 650 mg = 1 tab, Oral, every 8 hr, # 50 tab, 0 Refill(s), Pharmacy: [facility], 175, cm,04/19/23 16:40:00 EST, Height, [...] 1auto-populated from documented surgical case 2x2 Results Radiology Reports * Exam Date Time Procedure Performing Provider Status 06/10/23 2:37 PM XR Knee Complete 4+ Views Right Patrick Goldle; Lulu (Verified) Notes: (XR Knee Complete 4+ Views Right) Reason For Exam: f/u TKA XR Knee Complete 4+ Views Right EXAM DESCRIPTION: XR Knee Complete 4+ Views Right 06/10/2023 INDICATION: F/U TKA COMPARISON: 04/26/2023 IMPRESSION: Status post right total knee arthroplasty with stable satisfactory appearance. No focal lytic or destructive changes. No acute fracture or dislocation. JOB #: [id number] Final Signed by: Phillip Torres MD Signed (Electronic Signature): 06/10/2023 3:02 pm Social History Social History Type Response Tobacco Never tobacco user T obacco Use:. Sex Implantable Device List Procedure Provider Procedure Date Device Type Site Total Knee Arthroplasty Unknown 04/26/23 Unknown K nee R Device Identifier Serial Number Lot or Batch Number Manufacturing Date Expiration Date Distinct Identification Code MRI Safety Implantable Status Assigning Authority Unknown Unknown [id number] Unknown 09/06/32 Unknown Unknown Active Unknown Unknown Unknown [id number] Unknown 08/06/25 Unknown Unknown Active Unknown Unknown Unknown [id number] Unknown 02/02/28 Unknown Unknown Active Unknown Unknown Unknown [id number] Unknown 08/31/32 Unknown Unknown Active Unknown Unknown Unknown [id number] Unknown 07/10/27 Unknown Unknown Active Unknown Patient Care team information Care Team Personnel Name: DIAMANTE DICKINSON Position: No Access Member Role: Primary Care Physician Address: Address: [address] [place] [id number] [place] [address] Care Team Related Persons Name: LATRICE MITCHELL
--- OUTSIDE RECORDS SUMMARY | 2024-06-05 14:52 | XMS_ITS | Continuity of Care Document ---
Author Organization [facility] Address [address] [place] [address] Care Team Providers Care Pharmacy Benefits Coordinator Name Role Phone Lambert Gates Primary Care Physician [phone] Encounter [facility] NBR [id number] Date(s): 01/08/23 - 01/08/23 [facility] [address] [place] [address] [place] Encounter Diagnosis Bilateral primary osteoarthritis of knee(Discharge Diagnosis) - 01/08/23 Discharge Disposition: Home or Self Care Attending Physician: Mook Carrillo MD, I Allergies, Adverse [...] Pulse Rate [60-100 bpm] 80 bp m (01/08/23 11:48 AM) Blood Pressure [90-140/60-90 mmHg] 138/7 8mmHg (01/08/23 11:48 AM) Weight 97.52 kg (01/08/23 11:48 AM) Weight Measured (lbs) 214.995 lb (01/08/23 11:48 AM) Height 177.8 cm (01/08/23 11:48 AM) Height/Length Measured (inches) 70 inch (01/08/23 11:48 AM) BSA Measured 2.19 m2 (01/08/23 11:48 AM) Body Mass Index 30.85 kg/m2 (01/08/23 11:48 AM) Social History Social History Type Response Tobacco Never tobacco user T obacco Use:. Sex Physician Outpatient Note * Lorena MEDINA, Mook Mcarthur: PERFORM Event Display: Office Clinic Note Physician Authored Date: [id number] SIERRA MITCHELL :1960 Age:62 years Sex:Male Visit Date:01/08/2023 Primary Care Physician: Lambert Gates Chief Complaint Bilateral OA knee pain History of Present Illness Don returns today, his last hyaluronic acid injection was about 9 months ago,??he says the left knee actually is??continues to do well but he is having increased pain??in the right knee, both medially and posterior laterally,??he says the pain is significantly impacting his daily activities. Physical Exam Vitals & Measurements HR:??80??(Peripheral)?? BP:??138/78?? SpO2:??98%?? HT:??177.8??cm?? WT:??97.52??kg?? BMI:??30.85?? Pain Score:??5?? BSA:??2.19?? Review of studies: New x-rays were taken of the patient's bilateral knees.?? Patient has complete loss of medial joint space on the right knee, moderate OA of the left knee. ?? Emanation right knee today does show small to moderate effusion, there is a??still full range ofmotion, significant medial joint line tenderness, varus deformity. Procedure After discussing risk and benefits under sterile conditions I injected the right knee with 1 syringe Euflexxa, patient tolerated this without difficulty Assessment/Plan 1.??Bilateral primary osteoarthritis of knee??M17.0 Patient is now had an injection??of the right knee of Euflexxa??patient will return in a week for injection #2. Ordered: Euflexxa, 20 mg, Intra-articular, Once, First Dose: 01/08/23 12:29:00 EDT, Stop Date: 01/08/23 12:29:00 EDT, Physician Stop, Routine ?? Problem List/Past Medical History Ongoing Arthritis of right acromioclavicular joint Bilateral primary osteoarthritis of knee Derangement of medial meniscus due to injury of knee HTN (hypertension) Idiopathic osteoarthritis Osteoarthritis of knee Osteoarthritis of right knee joint Historical No qualifying data Medications amLODIPine 10 mg oral tablet atorvastatin 40 mg oral tablet, 40 mg= 1 tab, Oral, Daily Euflexxa, 20 mg, Intra-articular, Once hydroCHLOROthiazide 25 mg oral tablet, 25 mg= 1 tab, Oral, Daily ibuprofen 200 mg oral tablet, 400 mg= 2 tab, Oral, every 4 hr, PRN Allergies No Known Allergies No Known Medication Allergies Social History Electronic Cigarette/Vaping Electronic Cigarette Use: Never. Tobacco Never tobacco user Tobacco Use:. Electronically Signed on 01/08/23 12:50 PM Mook Carrillo MD, I Patient Care team information Care Team Personnel Name: Lambert Gates Position: No Access Member Role: Primary Care Physician Address: Address: [address] [place] [id number] [place] [address] Care Team Related Persons Name: LATRICE MITCHELL
--- OUTSIDE RECORDS SUMMARY | 2024-06-05 14:52 | XMS_ITS | Continuity of Care Document ---
Author Organization [facility] Address [address] [place] [address] Care Team Providers Care Chief Technologist Name Role Phone DIAMANTE DICKINSON Primary Care Physician Encounter [facility] NBR [id number] Date(s): 05/05/23 - 05/05/23 [facility] [address] [place], [place] [address] Encounter Diagnosis History of total knee arthroplasty(Discharge Diagnosis) - 05/05/23 Discharge Disposition: Home or Self Care Attending Physician: Nila Butler APRN Referring Physician: DIAMANTE DICKINSON Allergies, Adverse [...] Refill(s), Pharmacy: [facility], 175, cm, 04/19/23 16:40:00 EST, Height, 102, kg, 04/19/23 16:50:00 EST, Weight Dosing Start Date: 04/26/23 Stop Date: 05/10/23 Status: Ordered Ecotrin 325 mg oral delayed release tablet 325 mg = 1 tab, Oral, BID, # 84 tab, 0 Refill(s), Pharmacy: [facility], 175, cm, 04/19/23 16:40:00 EST, Height, 102, kg, 04/19/23 16:50:00 EST, Weight Dosing Start Date: 04/26/23 Stop Date: 06/07/23 Status: Ordered hydroCHLOROthiazide 25 mg oral tablet 25 mg = 1 tab, Oral, Daily, 0 Refill(s) Start Date: 03/03/22 Status: Ordered ketoconazole 2% topical cream , APPLY TWICE DAILY TO AFFECTED AREAS ON THE FACE NEEDED, 0 Refill(s) Start Date: 01/15/23 Status: Ordered MiraLax oral powder for reconstitution 17 g, Oral, Daily, # 238 g, 0 Refill(s), Pharmacy: [facility], 175, cm, 04/19/23 16:40:00 EST, Height, 102, kg, 04/19/23 16:50:00 EST, Weight Dosing Start Date: 04/26/23 Status: Ordered oxyCODONE 5 mg oral tablet See Instructions, PRN as needed for pain, 1-2 tab Oral every 4- 6 hr, # 60 tab, 0 Refill(s), Pharmacy: [facility], 175, cm, 04/19/23 16:40:00 EST, Height, 102, kg, 04/19/23 16:50:00 EST, Weight Dosing Start Date: 04/26/23 Status: Ordered oxyCODONE 5 mg oral tablet See Instructions, PRN as needed for pain, 1-2 tab Oral every 6 hr prn pain, # 50 tab, 0 Refill(s), Pharmacy: [facility], 175, cm, 04/19/23 16:40:00 EST, Height, 102, kg, 04/19/23 16:50:00 EST, Weight Dosing Start Date: 04/28/23 Status: Ordered Tylenol 8 HR Arthritis Pain 650 mg oral tablet, extended release 650 mg = 1 tab, Oral, every 8 hr, # 50 tab, 0 Refill(s), Pharmacy: [facility], 175, cm,04/19/23 16:40:00 EST, Height, [...] Range]: 1 Peripheral Pulse Rate [60-100 bpm] 56 bp m *LOW* (05/05/23 10:24 AM) Blood Pressure [90-140/60-90 mmHg] 138/8 2mmHg (05/05/23 10:24 AM) Mean Arterial Pressure, Cuff [70-110 mmH g] 101 mmHg (05/05/23 10:24 AM) Weight 102 kg (05/05/23 10:24 AM) Weight Measured (lbs) 224.871 lb (05/05/23 10:24 AM) Weight Dosing 102.000 kg (05/05/23 10:24 AM) Height 175 cm (05/05/23 10:24 AM) Height/Length Measured (inches) 68.9 inc h (05/05/23 10:24 AM) BSA Measured 2.23 m2 (05/05/23 10:24 AM) Body Mass Index 33.31 kg/m2 (05/05/23 10:24 AM) Social History Social History Type Response Tobacco Never tobacco user T obacco Use:. Sex Implantable Device List Procedure Provider Procedure Date Device Type Site Total Knee Arthroplasty Unknown 04/26/23 Unknown K nee R Device Identifier Serial Number Lot or Batch Number Manufacturing Date Expiration Date Distinct Identification Code MRI Safety Implantable Status Assigning Authority Unknown Unknown [id number] Unknown 09/06/32 Unknown Unknown Active Unknown Unknown Unknown [id number] Unknown 08/06/25 Unknown Unknown Active Unknown Unknown Unknown [id number] Unknown 02/02/28 Unknown Unknown Active Unknown Unknown Unknown [id number] Unknown 08/31/32 Unknown Unknown Active Unknown Unknown Unknown [id number] Unknown 07/10/27 Unknown Unknown Active Unknown Physician Outpatient Note * Nila Butler, GRASSLAND CONSERVATIONIST: PERFORM Event Display: Office Clinic Note Physician Authored Date: [id number] SIERRA MITCHELL :1960 Age:62 years Sex:Male Visit Date:05/05/2023 Primary Care Physician: DIAMANTE DICKINSON Chief Complaint RIGHT KNEE TKA pov History of Present Illness Sierra is a very pleasant 62 year old male who is just over a week s/p right TKA with Dr. Negro doing very well. He states his pain has been minimal. He had one visit with PT with plans to continue tomorrow, working diligently with [facility]. He is no longer taking narcotic pain medications. He denies post op complications or complaints. Review of Systems Constitutional:?No??fevers,?No??chills,?No??sweats Respiratory:?No??shortness of breath,?No??cough Cardiovascular:?No??Chest pain,?No??palpitations,?No??syncope Gastrointestinal:?Nonausea,?No??vomiting,?No??diarrhea Jalen/Lymph:?No??bruising tendency,?No??swollen lymph glands Musculoskeletal:??No??back pain,??No??neck pain,??Positive for??joint pain,??No??muscle pain,??Positive for??decreased range of motion Integumentary:?No??rash,?No??pruritus,?No??abrasions Neurologic: Alert & oriented X 4 Physical Exam Vitals & Measurements HR:??56??(Peripheral)?? BP:??138/82?? SpO2:??99%?? HT:??175??cm?? WT:??102??kg?? BMI:??33.31?? BSA:??2.23?? The patient is well dressed, well groomed and appearing stated age in NAD. Focused examination of the RLE reveals an anterior surgical site without erythema, warmth or drainage. Dermabond flaking appropriately. There is moderate edema surround the knee to ankle. Moderate ecchymosis to mid thigh. Extension is lacking 5 degrees, flexion to 90. Able to actively plantar and dorsiflex the foot. RLE isneurovascularly intact. Gait is supported by two crutches. Assessment/Plan 1.??History of total knee arthroplasty??Z96.659 Don is doing great just over a week s/p right TKA. We reviewed edema control and he will continue with compression socks for another week as well as ice and elevate. ASA and Celebrex will both be taken until the rx runs out. Tylenol use reviewed. He will continue in PT and ROM expectations are discussed. X-ray's are reviewed for better understanding of implant. He is anxious to get the other kneereplaced and he will discuss that with Dr. Negro at his six week follow up. All questions are answered prior to appointment end and Don is encouraged to contact the office at any time with further questions or needs. Problem List/Past Medical History Ongoing Arthritis of right acromioclavicular joint Bilateral primary osteoarthritis of knee Colonic polyp Derangement of medial meniscus due to injury of knee Eczema Hearing impaired HLD - Hyperlipidemia HTN (hypertension) Idiopathic osteoarthritis Osteoarthritis of knee Osteoarthritis of right knee joint Historical No qualifying data Procedure/Surgical History ???Total Knee Arthroplasty (Right) (04/26/2023)???Arthroscopy of knee???Colonoscopy Medications Albuterol (Eqv-ProAir HFA) 90 mcg/inh inhalation [...] Allergies No Known Medication Allergies Social History Alcohol Current, Daily Electronic Cigarette/Vaping Electronic Cigarette Use: Never. Substance Use Never Tobacco Never tobacco user Tobacco Use:. Electronically Signed on 05/05/23 11:24 AM Nila Butler APRN Patient Care team information Care Team Personnel Name: DIAMANTE DICKINSON Position: No Access Member Role: Primary Care Physician Address: Address: [address] [place] [address] Care Team Related Persons Name: LATRICE MITCHELL
--- OUTSIDE RECORDS SUMMARY | 2024-06-05 14:52 | XMS_ITS | Continuity of Care Document ---
Author Organization [facility] Ambulatory Clinics Address [address] [place] [address] Care Team Providers Care Licensed Chemical Spray Technician Name Role Phone TEENADIAMANTE GRAY Primary Care Physician Encounter [facility] NBR [id number] Date(s): 07/28/23 - 07/28/23 [facility] Amb[facility]ics [address] [place] [address] Encounter Diagnosis Status post left knee replacement(Discharge Diagnosis) - 07/28/23 Discharge Disposition: Home or Self Care Attending Physician: Joceline Weiss APRN Allergies, Adverse Reactions, Alerts No Known Allergies Assessment and Plan Extracted from: Title:Ortho: Status post left TKA Author:Joceline miller APRN Date:07/28/23 1.??Status post left knee re placement??Z96.652 Don's range of motion is great, he is getting continue physical therapy, he is taking a little oxycodone prior to PT and I said that that is absolutely reasonable that he does need to push to get as much range of motion as possible??during the first 6 weeks.?? Ecotrin will continue 325 p.o. twice daily??for 6 weeks postoperatively, once the Celebrex is completed he can then add in ibuprofen midday and at bedtime as well.?? If he has any issues questions concerns she is encouraged to call otherwise we will see him back in about 4 weeks time for reevaluation and wound check, he will keep an eye on his incision, he can discontinue ANDRA stockings as of today.?? He is not very swollen so he can also discontinue Bjorn wrap. ??He can always go back to those 2 therapy should he need to if he incur swelling. Future Appointments Medications Albuterol (Eqv-ProAir HFA) 90 [...] bedtime, # 28 cap, 0 Refill(s), Pharmacy: [facility], 175, cm, 07/15/23 10:15:00 EST, Height, 100, kg, 07/15/23 10:21:00 EST, Weight Dosing Start Date: 07/20/23 Stop Date: 08/03/23 Status: Ordered Ecotrin 325 mg oral delayed release tablet 325 mg = 1 tab, Oral, BID, # 84 tab, 0 Refill(s), Pharmacy: [facility], 175, cm, 07/15/23 10:15:00 EST, [...] Daily, # 238 g, 0 Refill(s), Pharmacy: [facility], 175, cm, 07/15/23 10:15:00 EST, Height, 100, kg, 07/15/23 10:21:00 EST, Weight Dosing Start Date: 07/20/23 Status: Ordered oxyCODONE 5 mg oral tablet See Instructions, PRN as needed for pain, 1-2 tab Oral every 4- 6 hr, # 60 tab, 0 Refill(s), Pharmacy: [facility], 175, cm, 07/15/23 10:15:00 EST, Height, 100, kg, 07/15/23 10:21:00 EST, Weight Dosing Start Date: 07/20/23 Status: Ordered Tylenol 8 HR Arthritis Pain 650 mg oral tablet, extended release 650 mg = 1 tab, Oral, every 8 hr, # 50 tab, 0 Refill(s), Pharmacy: [facility], 175, cm,07/15/23 10:15:00 EST, Height, [...] Range]: 1 Peripheral Pulse Rate [60-100 bpm] 66 bp m (07/28/23 10:46 AM) Blood Pressure [90-140/60-90 mmHg] 128/7 8mmHg (07/28/23 10:46 AM) Mean Arterial Pressure, Cuff [65-140 mmH g] 95 mmHg (07/28/23 10:46 AM) Social History Social History Type Response Tobacco Never tobacco user T obacco Use:. Sex Implantable Device List Procedure Provider Procedure Date Device Type Site Total Knee Arthroplasty Justyna Weiss, 07/20/23 U nknown Knee L Device Identifier Serial Number Lot or Batch Number Manufacturing Date Expiration Date Distinct Identification Code MRI Safety Implantable Status Assigning Authority Unknown Unknown [id number] Unknown 03/13/28 Unknown Unknown Active Unknown Unknown Unknown [id number] Unknown 11/05/25 Unknown Unknown Active Unknown Unknown Unknown [id number] Unknown 03/05/33 Unknown Unknown Active Unknown Unknown Unknown [id number] Unknown 05/07/33 Unknown Unknown Active Unknown Unknown Unknown [id number] Unknown 03/05/28 Unknown Unknown Active Unknown Procedure Provider Procedure Date Device Type Site Total Knee Arthroplasty Unknown 04/26/23 Unknown K nee R Device Identifier Serial Number Lot or Batch Number Manufacturing Date Expiration Date Distinct Identification Code MRI Safety Implantable Status Assigning Authority Unknown Unknown [id number] Unknown 09/06/32 Unknown Unknown Active Unknown Unknown Unknown [id number] Unknown 08/06/25 Unknown Unknown Active Unknown Unknown Unknown [id number] Unknown 02/02/28 Unknown Unknown Active Unknown Unknown Unknown [id number] Unknown 08/31/32 Unknown Unknown Active Unknown Unknown Unknown [id number] Unknown 07/10/27 Unknown Unknown Active Unknown Physician Outpatient Note * Joceline Weiss, TEXTILE DYER: PERFORM Event Display: Office Clinic Note Physician Authored Date: [id number] SIERRA MITCHELL :1960 Age:62 years Sex:Male Visit Date:07/28/2023 Primary Care Physician: DIAMANTE DICKINSON Chief Complaint PO Left total knee arthroplasty History of Present Illness Sierra is a 62-year-old male who is here today for follow-up evaluation of his left total knee arthroplasty done as an outpatient by Dr. Weiss on 07/20/2023, he walks in today??without any assistance, states things are going well.?? He also had his right knee replaced with us, he states??that this left side may be is a bit more stiff may be a bit more bruised but overall he is thrilled and happy, states everything is going well.?? He was able to get to flexion to about 110 degrees in physical therapy last week, states his incision has been clean and dry, he has been icing elevation and wearing his compression socks.?? He does tell me that he stopped wearing the Bjorn bandage. ??Overall he is very happy, not taking any oxycodone.?? He is taking Ecotrin 325 p.o. twice daily as prescribed for DVT prophylaxis and Celebrex morning??and nighttime.?? Tylenol intermittently. Physical Exam Vitals & Measurements HR:??66??(Peripheral)?? BP:??128/78?? SpO2:??97%?? Pain Score:??3?? Left knee: To inspection well-approximated midline incision no redness no erythema Dermabond is intact, quite a lot of bruising of his??mid thigh he is able to straight leg raise. ??He is able to fully extend today, flexion is measured at 105 calf is soft he is able to dorsiflex plantarflex left ankle. Assessment/Plan 1.??Status post left knee replacement??Z96.652 Don's range of motion is great, he is getting continue physical therapy, he is taking a little oxycodone prior to PT and I said that that is absolutely reasonable that he does need to push to get as much range of motion as possible??during the first 6 weeks.?? Ecotrin will continue 325 p.o. twice da vega??for 6 weeks postoperatively, once the Celebrex is completed he can then add in ibuprofen midday and at bedtime as well.?? If he has any issues questions concerns she is encouraged to call otherwise we will see him back in about 4 weeks time for reevaluation and wound check, he will keep an eyeon his incision, he can discontinue ANDRA stockings as of today.?? He is not very swollen so he can also discontinue Bjorn wrap. ??He can always go back to those 2 therapy should he need to if he incur swelling. Problem List/Past Medical History Ongoing Arthritis of [...] No Known Medication Allergies Electronically Signed on 07/28/23 11:18 AM Joceline Weiss APRN Reviewed by: Justyna Weiss DO Patient Care team information Care Team Personnel Name: DIAMANTE DICKINSON Position: No Access Member Role: Primary Care Physician Address: Address: [address] [place] [address] Care Team Related Persons Name: LATRICE MITCHELL
--- OUTSIDE RECORDS SUMMARY | 2024-06-05 14:52 | XMS_ITS | Continuity of Care Document ---
Author Organization [facility] Address [address] [place] [id number] Care Team Providers Care Communications Department Head Name Role Phone TEENA DIAMANTE Valero Primary Care Physician [phone] Encounter [facility] NBR [id number] Date(s): 04/21/23 - 04/21/[address] [address] [place] Discharge Disposition: Home or Self Care Attending [...] 4 hr, PRN as needed for pain, 0 Refill(s) Start Date: 03/03/22 Status: Ordered [...] Procedure Date Related Diagnosis Body Site Status Arthroscopy of knee 1 Com pleted Colonoscopy Completed 1x2 Results Laboratory List Name Date Automated Diff 04/21/23 CBC w/ Diff 04/21/23 Comprehensive Metabolic Panel (CMP) 04/09 07/30 Staph Nasal Complete (GeneXpert) 3 Urinalysis with Micro if Indicated and C ulture if Indicated 04/21/23 Most recent to oldest [Reference Range]: 1 WBC [4.8-10.8 K/mcL] 8.0 K/mcL (04/21/23 11:31 AM) RBC [4.70-6.10 Million/mcL] 5.09 Million /mcL (04/21/23 11:31 AM) Neutro Auto [42.2-75.2 %] 55.2 % (04/21/23 11:31 AM) Lymph Auto [20.5-51.1 %] 31.4 % (04/21/23 11:31 AM) Lares Auto [1.7-9.3 %] 10.9 % *HI* (04/21/23 11:31 AM) Basophil Auto [0.0-0.8 %] 0.6 % (04/21/23 11:31 AM) BUN [7-25 mg/dL] 14 mg/dL (04/21/23 11:31 AM) UA Color [Yellow] Yellow (04/21/23 11:31 AM) Glucose Level [70-109 mg/dL] 92 mg/dL (04/21/23 11:31 AM) Potassium Level [3.5-5.1 mmol/L] 3.9 mmo l/L (04/21/23 AM) Baso Absolute [0.0-0.2 K/mcL] 0.0 K/mcL (04/21/23 AM) MCV [80.0-94.0 fL] 96.5 fL *HI* (04/21/23 AM) UA Urobilinogen [0.2] 0.2 (04/21/23 AM) UA Bili [Negative] Negative (04/21/23 AM) UA Ketones [Negative] Negative (04/21/23 AM) AST [13-39 IntlUnit/L] 15 IntlUnit/L (04/21/23 AM) ALT [7-52 IntlUnit/L] 20 IntlUnit/L (04/21/23 AM) MCHC [32.0-37.0 g/dL] 34.2 g/dL (04/21/23 AM) Osmolality [275-295 mOsm/kg] 276 mOsm/kg (04/21/23 AM) Sodium Level [136-145 mmol/L] 138 mmol/L (04/21/23 AM) UA Leuk Est [Negative] Negative (04/21/23 AM) Lymph Absolute [1.2-3.4 K/mcL] 2.5 K/mcL (04/21/23 AM) UA Nitrite [Negative] Negative (04/21/23 AM) UA Glucose [Negative] Negative (04/21/23 AM) Hct [42.0-52.0 %] 49.1 % (04/21/23 AM) Calcium Level [8.6-10.3 mg/dL] 9.8 mg/dL (04/21/23 AM) Lares Absolute [0.1-0.6 K/mcL] 0.9 K/mcL *HI* (04/21/23 AM) Albumin Level [3.5-5.7 g/dL] 4.6 g/dL (04/21/23 AM) Protein Total [6.4-8.9 g/dL] 7.2 g/dL (04/21/23 11:31 AM) UA Protein [Negative] Negative (04/21/23 AM) MCH [27.0-31.0 pg] 33.0 pg *HI* (04/21/23 AM) Neutro Absolute [1.4-6.5 K/mcL] 4.4 K/mc L (04/21/23 AM) Bilirubin Total [0.3-1.0 mg/dL] 0.7 mg/d L (04/21/23 AM) Hgb [14.0-18.0 g/dL] 16.8 g/dL (04/21/23 AM) Alk Phos [34-104 IntlUnit/L] 85 IntlUnit /L (04/21/23 AM) UA Blood [Negative] Negative (04/21/23 AM) MPV [7.4-10.4 fL] 7.2 fL *LOW* (04/21/23 AM) UA Spec Grav [1.001-1.030] <=1.005 *NA* (04/21/23 AM) Platelets [130-400 K/mcL] 248 K/mcL (04/21/23 AM) CO2 [21-31 mmol/L] 25 mmol/L (04/21/23: AM) Eos Absolute [0.0-0.2 K/mcL] 0.1 K/mcL (04/21/23 AM) UA pH [5.00-9.00] 6.50 (04/21/23 AM) UA Appear [Clear] Clear (04/21/23 AM) Chloride Level [98-107 mmol/L] 103 mmol/ L (04/21/23: AM) RDW-CV [11.5-14.5 %] 12.6 % (04/21/23 AM) A/G Ratio [1.0-2.5 g/dL] 1.8 g/dL (04/21/23 AM) BUN/Creat Ratio [8.0-20.0] 14.0 (04/21/23 11:31 AM) Globulin [2.3-3.5 g/dL] 2.6 g/dL (04/21/23 11:31 AM) MRSA Screen -GeneXpert [Negative] Negati ve (04/21/23 11:31 AM) Urine Srce Clean Catch (04/21/23 11:31 AM) MSSA Screen -GeneXpert [Negative] Negati ve (04/21/23 11:31 AM) Creatinine Level [0.70-1.30 mg/dL] 1.00 mg/dL (04/21/23 11:31 AM) Anion Gap [3.0-12.0] 10.0 (04/21/23 11:31 AM) Eos, Auto [0.00-3.00 %] 1.90 % (04/21/23 11:31 AM) eGFR CKD-EPI [>=60 mL/min/1.73 m2] 85 mL /min/1.73 m2 (04/21/23 11:31 AM) Social History Social History Type Response Tobacco Never tobacco user T obacco Use:. Sex Patient Care team information Care Team Personnel Name: DIAMANTE DICKINSON Position: No Access Member Role: Primary Care Physician Address: Address: [address] [place] [id number] [place] Care Team Related Persons Name: LATRICE MITCHELL
--- OUTSIDE RECORDS SUMMARY | 2024-06-05 14:52 | XMS_ITS | Continuity of Care Document ---
Author Organization [facility] Ambulatory Clinics Address [address] [place] [address] Care Team Providers Care Platinum Smith Name Role Phone DIAMANTE DICKINSON Primary Care Physician [phone] Encounter [facility] NBR [id number] Date(s): 08/25/23 - 08/25/23 [facility] Ambulatory Clinics [address] [place] [address] [place] Discharge Disposition: Home Allergies, [...] bedtime, # 28 cap, 0 Refill(s), Pharmacy: [facility], 175, cm, 07/15/23 10:15:00 EST, [...] BID, # 84 tab, 0 Refill(s), Pharmacy: [facility], 175, cm, 07/15/23 10:15:00 EST, [...] Daily, # 238 g, 0 Refill(s), Pharmacy: [facility], 175, cm, 07/15/23 10:15:00 EST, Height, 100, kg, 07/15/23 10:21:00 EST, Weight Dosing Start Date: 07/20/23 Status: Ordered oxyCODONE 5 mg oral tablet See Instructions, PRN as needed for pain, 1-2 tab Oral every 4- 6 hr, # 60 tab, 0 Refill(s), Pharmacy: [facility], 175, cm, 07/15/23 10:15:00 EST, Height, 100, kg, 07/15/23 10:21:00 EST, Weight Dosing Start Date: 07/20/23 Status: Ordered rifAMPin 300 mg oral capsule 300 mg = 1 cap, Oral, every 12 hr, # 20 cap, 2 Refill(s), Pharmacy: [facility], 175, cm, 07/15/23 10:15:00 EST, Height, 100, kg, 07/15/23 10:21:00 EST, Weight Dosing Start Date: 08/13/23 Stop Date: 09/12/23 Status: Ordered Tylenol 8 HR Arthritis Pain 650 mg oral tablet, extended release 650 mg = 1 tab, Oral, every 8 hr, # 50 tab, 0 Refill(s), Pharmacy: [facility], 175, cm,07/15/23 10:15:00 EST, Height, [...] Safety Implantable Status Assigning Authority Unknown Unknown [id number] Unknown 03/13/28 Unknown Unknown Active Unknown Unknown Unknown [id number] Unknown 11/05/25 Unknown Unknown Active Unknown Unknown Unknown [id number] Unknown 03/05/33 Unknown Unknown Active Unknown Unknown Unknown [id number] Unknown 05/07/33 Unknown Unknown Active Unknown Unknown Unknown [id number] Unknown 03/05/28 Unknown Unknown Active Unknown Procedure Provider Procedure Date Device Type Site Total Knee Arthroplasty Unknown 04/26/23 Unknown K nee R Device Identifier Serial Number Lot or Batch Number Manufacturing Date Expiration Date Distinct Identification Code MRI Safety Implantable Status Assigning Authority Unknown Unknown [id number] Unknown 09/06/32 Unknown Unknown Active Unknown Unknown Unknown [id number] Unknown 08/06/25 Unknown Unknown Active Unknown Unknown Unknown [id number] Unknown 02/02/28 Unknown Unknown Active Unknown Unknown Unknown [id number] Unknown 08/31/32 Unknown Unknown Active Unknown Unknown Unknown [id number] Unknown 07/10/27 Unknown Unknown Active Unknown Patient Care team information Care Team Personnel Name: DIAMANTE DICKINSON Position: No Access Member Role: Primary Care Physician Address: Address: [address] [place] [id number] [place] [address] Care Team Related Persons Name: LATRICE MITCHELL
--- OUTSIDE RECORDS SUMMARY | 2024-06-05 14:52 | XMS_ITS | Continuity of Care Document ---
Author Organization [facility] Address [address] [place] [address] Care Team Providers Care Line Appliance Assembler Name Role Phone KodyLambert carrizales Primary Care Physician [phone] Encounter [facility] NBR [id number] Date(s): 09/18/22 - 09/18/22 [facility] [address] [place] [address]- Discharge Disposition: Home or Self Care Attending Physician: Mook Carrillo MD Admitting Physician: Mook Carrillo MD Referring Physician: Mook Carrillo MD Allergies, Adverse Reactions, Alerts No Known Allergies Medications amLODIPine 10 mg oral tablet 30 [...] 0 Refill(s) Start Date: 03/03/22 Status: Ordered Voltaren 1% topical gel See Instructions, 1 cooper Topical QID not to exceed 8 grams/day/single joint of upper extremities, # 100 g, 0 Refill(s), Pharmacy: [facility] Start Date: 09/18/22 Status: Ordered Problem List Condition Confirmation Course [...] Exam Date Time Procedure Performing Provider Status 09/18/22 9:10 AM XR Shoulder Complete 2+ Views Right Pilar Renee; Lulu (Verified) Notes: (XR Shoulder Complete 2+ Views Right) Reason For Exam: RIGHT SHOULDER XR Shoulder Complete 2+ Views Right PROCEDURE INFORMATION: Exam: XR Right Shoulder Exam date and time: 09/18/2022 9:03 AM Age: 61 years old Clinical indication: Pain in right shoulder; Pain in right shoulder TECHNIQUE: Imaging protocol: Radiologic exam of the right shoulder. Views: 2 or more views. COMPARISON: No relevant prior studies available. FINDINGS: Bones/joints: Visualized portions of the clavicle normal. Mild degenerative changes of the acromioclavicular joint. Glenohumeral joint normal. Scapula normal. Visualized ribs and visualized pulmonary parenchyma normal. Coracoid process normal Soft tissues: Normal. IMPRESSION: Mild degenerative changes of the acromioclavicular joint. THIS DOCUMENT HAS BEEN ELECTRONICALLY SIGNED BY ROYCE CABELLO MD on 09/18/2022 10:16 AM Final Signed by: Royce Cabello MD Signed (Electronic Signature): 09/18/2022 10:16 am Social History Social History Type Response Tobacco Never tobacco user T obacco Use:. Sex XR Shoulder - right GE 2 Views * Royce Cabello MD: VERIFY, VERIFY Event Display: Report PROCEDURE INFORMATION: Exam: XR Right Shoulder Exam date and time: 09/18/2022 9:03 AM Age: 61 years old Clinical indication: Pain in right shoulder; Pain in right shoulder TECHNIQUE: Imaging protocol: Radiologic exam of the right shoulder. Views: 2 or more views. COMPARISON: No relevant prior studies available. FINDINGS: Bones/joints: Visualized portions of the clavicle normal. Mild degenerative changes of the acromioclavicular joint. Glenohumeral joint normal. Scapula normal. Visualized ribs and visualized pulmonary parenchyma normal. Coracoid process normal Soft tissues: Normal. IMPRESSION: Mild degenerative changes of the acromioclavicular joint. THIS DOCUMENT HAS BEEN ELECTRONICALLY SIGNED BY ROYCE CABELLO MD on 09/18/2022 10:16 AM Final Signed by: Royce Cabello MD Signed (Electronic Signature): 09/18/2022 10:16 am Patient Care team information Care Team Personnel Name: Lambert Gates Position: No Access Member Role: Primary Care Physician Address: Address: [address] [place] [id number] [place] Care Team Related Persons Name: LATRICE MITCHELL
--- OUTSIDE RECORDS SUMMARY | 2024-06-05 14:52 | XMS_ITS | Continuity of Care Document ---
Author Organization [facility] Address [address] [place] [id number] Care Team Providers Care Field Interviewer Name Role Phone DIAMANTE DICKINSON Primary Care Physician Encounter [facility] NBR [id number] Date(s): 04/26/23 - 04/26/[address] [phone] Encounter Diagnosis Unilateral primary osteoarthritis, right knee(Final) - Discharge Disposition: Home or Self Care Attending Physician: Justyna Negro DO Admitting Physician: Justyna Negro DO Referring Physician: Justyna Negro DO Allergies, Adverse Reactions, Alerts No Known Allergies Assessment and Plan Future Appointments Functional Status 04/26/23 Living Environment Home Environment *ADL: Independent Performed By: JORY Barger 04/26/2023 *Cognitive-Communication Skills: Independent Performed By: JORY Barger 04/26/2023 *Instrumental ADL: Independent Performed By: JORY Barger 04/26/2023 *Mobility: Independent Performed By: JORY Barger 04/26/2023 Kitchen: 1st floor Performed By: JORY Barger 04/26/2023 Laundry: 1st floor Performed By: JORY Barger 04/26/2023 Lives In: Single level home Performed By: JORY Barger 04/26/2023 Lives With: Spouse Performed By: JORY Barger 04/26/2023 Living Situation: Home independently Performed By: JORY Barger 04/26/2023 Number of Stairs Inside: 0 Performed By: JORY Barger 04/26/2023 Number of Stairs Outside: 3 Performed By: JORY Barger 04/26/2023 Patient's Responsibilities: Personal ADL Performed By: JORY Barger 04/26/2023 Primary Bathroom: 1st floor Performed By: JORY Barger 04/26/2023 Primary Bedroom: 1st floor Performed By: JORY Barger 04/26/2023 Special Services/Community Resources: None Performed By: Eliza Zavaleta 04/26/2023 Sensory Deficits: Hearing deficit, left ear, Hearing deficit, right ear Performed By: Eliza Zavaleta 04/26/2023 Prior ADL Status Independent Prior Mobility Status Independent Prior Instrumental ADL Level Independent Prior Cognitive-Communication Skills Ind ependent 04/26/23 Lives In Single level home Lives With Spouse Living Situation Home independently Patient's Responsibilities Rehab Persona l ADL Number of Stairs Inside 0 Number of Stairs Outside 3 Location Bed 1st floor Location Main Bathroom 1st floor Location Kitchen 1st floor Location Laundry 1st floor 04/26/23 Special Services and Community Resources None 04/26/23 Anti-Embolism Device Activity: Removed Anti-Embolism Device Removal Reason: Sabra pended 04/26/23 Anti-Embolism Site Condition: No complic ations 04/26/23 Antiembolism Device Graduated compressio n stockings, knee high, bilateral, Graduated compression stockings, thigh high, bilateral Medications Albuterol (Eqv-ProAir HFA) 90 mcg/inh inhalation [...] bedtime, # 28 cap, 0 Refill(s), Pharmacy: [facility], 175, cm, 04/19/23 16:40:00 EST, Height, 102, kg, 04/19/23 16:50:00 EST, Weight Dosing Start Date: 04/26/23 Stop Date: 05/10/23 Status: Ordered Ecotrin 325 mg oral delayed release tablet 325 mg = 1 tab, Oral, BID, # 84 tab, 0 Refill(s), Pharmacy: [facility], 175, cm, 04/19/23 16:40:00 EST, Height, 102, [...] Daily, # 238 g, 0 Refill(s), Pharmacy: [facility], 175, cm, 04/19/23 16:40:00 EST, Height, 102, kg, 04/19/23 16:50:00 EST, Weight Dosing Start Date: 04/26/23 Status: Ordered oxyCODONE 5 mg oral tablet See Instructions, PRN as needed for pain, 1-2 tab Oral every 4- 6 hr, # 60 tab, 0 Refill(s), Pharmacy: [facility], 175, cm, 04/19/23 16:40:00 EST, Height, 102, kg, 04/19/23 16:50:00 EST, Weight Dosing Start Date: 04/26/23 Status: Ordered Tylenol 8 HR Arthritis Pain 650 mg oral tablet, extended release 650 mg = 1 tab, Oral, every 8 hr, # 50 tab, 0 Refill(s), Pharmacy: [facility], 175, cm,04/19/23 16:40:00 EST, Height, [...] Exam Date Time Procedure Performing Provider Status 04/26/23 2:23 PM XR Knee 3 Views Right Rocio Rhoades; Lulu (Verified) Notes: (XR Knee 3 Views Right) Reason For Exam: s/p right TKA XR Knee 3 Views Right EXAM DESCRIPTION: XR Knee 3 Views Right 04/26/2023 INDICATION: S/P RIGHT TKA IMPRESSION: Status post right total knee arthroplasty with satisfactory postoperative appearance. Regional soft tissue and intra-articular air consistent with recent postoperative state. JOB #: [id number] Final Signed by: Phillip Torres MD Signed (Electronic Signature): 04/26/2023 2:37 pm Vital Signs Most recent to oldest [Reference Range]: 1 2 3 Temperature Temporal Artery [36-38 Deg C] 36.6 Deg C (04/26/23 2:09 PM) 36.9 Deg C (04/26/23 9:47 AM) Temperature Temporal Artery (DegF) [97.3-100 Deg F] 97.88 Deg F (04/26/23 2:09 PM) Peripheral Pulse Rate [60-100 bpm] 69 bpm (04/26/23 4:31 PM) 76 bpm (04/26/23 3:17 PM) 75 bpm (04/26/23 3:15 PM) Heart Rate Monitored [60-100 bpm] 88 bpm (04/26/23 3:17 PM) 88 bpm (04/26/23 3:15 PM) Respiratory Rate [12-24 br/min] 16 br/min (04/26/23 4:31 PM) 14 br/min (04/26/23 3:15 PM) 14 br/min (04/26/23 2:25 PM) Blood Pressure [90-140/60-90 mmHg] 141/91mmHg *HI* (04/26/23 3:17 PM) 141/91mmHg *HI* (04/26/23 3:15 PM) 109/61mmHg (04/26/23 2:18 PM) Mean Arterial Pressure, Cuff [70-110 mmHg] 108 mmHg (04/26/23 3:17 PM) 108 mmHg (04/26/23 3:15 PM) 77 mmHg (04/26/23 2:18 PM) Mean Arterial Pressure Cuff 104 mmHg (04/26/23 3:17 PM) 104 mmHg (04/26/23 3:15 PM) 74 mmHg (04/26/23 2:18 PM) Weight 102 kg (04/19/23 4:40 PM) Weight Dosing 102.000 kg (04/19/23 4:40 PM) Height 175 cm (04/19/23 4:40 PM) Social History Social History Type Response Tobacco Never tobacco user T obacco Use:. Sex Implantable Device List Procedure Provider Procedure Date Device Type Site Total Knee Arthroplasty Unknown 04/26/23 Unknown K nee R Device Identifier Serial Number Lot or Batch Number Manufacturing Date Expiration Date Distinct Identification Code MRI Safety Implantable Status Assigning Authority Unknown Unknown [id number] Unknown 09/06/32 Unknown Unknown Active Unknown Unknown Unknown [id number] Unknown 08/06/25 Unknown Unknown Active Unknown Unknown Unknown [id number] Unknown 02/02/28 Unknown Unknown Active Unknown Unknown Unknown [id number] Unknown 08/31/32 Unknown Unknown Active Unknown Unknown Unknown [id number] Unknown 07/10/27 Unknown Unknown Active Unknown Hospital Discharge Instructions Patient Education 04/15/2023 07:12:28 [facility] Post Operative Discharge Instructions (CUSTOM) [facility] Discharge Instructions Name: Sierra Mitchell Surgery: Right knee replacement General Instructions: ??? Keep limb [...] times daily for 20-30 minutes at a time. Dressing Instructions: ??? KNEE REPLACEMENTS: Physical therapy [...] All refill requests will be taken at [phone]. This is your responsibility to keep track [...] Complications: If you experience the following call [phone]. Please try to call with questions during normal business hours. After hour calls should be for emergency use only. ??? Red streaking extending out away from wound ??? Drainage from wound- small amount of blood is ok, pus is not ??? Fever (101 or above), nausea, vomiting-- inability to drink fluids Follow up Care: POST OP APPOINTMENT Date/Time: 05/04/23 @ 12:45 [facility] Office Nila Butler APRN Return to Work/School: not until follow up Patient Signature Please keep this handy at home so that you may refer to it if you think of a question. 04/15/2023 07:11:23 Total Knee Replacement, Care After Total Knee Replacement, Care After This sheet gives you information about how to care for yourself after your procedure. Your health care provider may also give you more specific instructions. If you have problems or questions, contact your health care provider. What can I expect after the procedure? After the procedure, it is common to have: ??? Redness, pain, and swelling at the incision area. ??? Stiffness. ??? Discomfort. ??? A small amount of blood or clear fluid coming from your incision. Follow these instructions at home: Medicines ??? Take wohv-cbj-aeoyudo and prescription medicines only as told by your health care provider. ??? If you were prescribed a blood thinner (anticoagulant), take it as told by your health care provider. ??? Ask your health care provider if the medicine prescribed to you: ??? Requires you to avoid driving or using machinery. ??? Can cause constipation. You may need to take these actions to prevent or treat constipation: ??? Drink enough fluid to keep your urine pale yellow. ??? Take rvbw-mgv-miwmaur or prescription medicines. ??? Eat foods that are high in fiber, such as beans, whole grains, and fresh fruits and vegetables. ??? Limit foods that are high in fat and processed sugars, such as fried or sweet foods. Incision care ??? Follow instructions from your health care provider about how to take care of your incision. Make sure you: ??? Wash your hands with soap and water for at least 20 seconds before and after you change your bandage (dressing). If soap and water are not available, use hand hazardous substances engineer. ??? Change your dressing as told by your health care provider. ??? Leave stitches (sutures), lanny, skin glue, or adhesive strips in place. These skin closures may need to stay in place for 2 weeks or longer. If adhesive strip edges start to loosen and curl up, you may trim the loose edges. Do not remove adhesive strips completely unless your health care provider tells you to do that. ??? Do not take baths, swim, or use a hot tub until your health care provider approves. ??? Check your incision area every day for signs of infection. Check for: ??? More redness, swelling, or pain. ??? More fluid or blood. ??? Warmth. ??? Pus or a bad smell. Activity ??? Rest as told by your health care provider. ??? Avoid sitting for a long time without moving. Get up to take short walks every 1???2 hours. This is important to improve blood flow and breathing. Ask for help if you feel weak or unsteady. ??? Follow instructions from your health care provider about using a walker, crutches, or a cane. ??? You may use your legs to support (bear) your body weight as told by your health care provider. Follow instructions about how much weight you may safely support on your affected leg (weight-bearing restrictions). ??? A physical therapist may show you how to get out of a bed and chair and how to go up and down stairs. You will first do this with a walker, crutches, or a cane and then without any of these devices. ??? Once you are able to walk without a limp, you may stop using a walker, crutches, or a cane. ??? Do exercises as told by your health care provider or physical therapist. ??? Avoid high-impact activities, including running, jumping rope, and doing jumping jacks. ??? Do not play contact sports until your health care provider approves. ??? Return to your normal activities as told by your health care provider. Ask your health care provider what activities are safe for you. Managing pain, stiffness, and swelling ??? If directed, put ice on your knee. To do this: ??? Put ice in a plastic bag or use the icing device (cold flow pad) that you were given. Follow instructions from your health care provider about how to use the icing device. ??? Place a towel between your skin and the bag or between your skin and the icing device. ??? Leave the ice on for 20 minutes, 2???3 times a day. ??? Remove the ice if your skin turns bright red. This is very important. If you cannot feel pain, heat, or cold, you have a greater risk of damage to the area. ??? Move your toes often to reduce stiffness and swelling. ??? Raise (elevate) your leg above the level of your heart while you are sitting or lying down. ??? Use several pillows to keep your leg straight. ??? Do not put a pillow just under the knee. If the knee is bent for a long time, this may lead to stiffness. ??? Wear elastic knee support as told by your health care provider. Safety ??? To help prevent falls, keep floors clear of objects you may trip over. Place items that you mayneed within easy reach. ??? Wear an apron or tool belt with pockets for carrying objects. This leaves your hands free to help with your balance. ??? Ask your health care provider when it is safe to drive. General instructions ??? Wear compression stockings as told by your health care provider. These stockings help to prevent blood clots and reduce swelling in your legs. ??? Continue with breathing exercises. This helps prevent lung infection. ??? Do not use any products that contain nicotine or tobacco. These products include cigarettes, chewing tobacco, and vaping devices, such as e-cigarettes. These can delay healing after surgery. If you need help quitting, ask your health care provider. ??? Tell your health care provider if you plan to have dental work. Also: ??? Tell your dentist about your joint replacement. ??? Ask your health care provider if there are any special instructions you need to follow before having dental care and routine cleanings. ??? Keep all follow-up visits. This is important. Contact a health care provider if: ??? You have a fever or chills. ??? You have a cough or feel short of breath. ??? Your medicine is not controlling your pain. ??? You have any of these signs of infection: ??? More redness, swelling, or pain around your incision. ??? More fluid or blood coming from your incision. ??? Warmth coming from your incision. ??? Pus or a bad smell coming from your incision. ??? You fall. Get help right away if: ??? You have severe pain. ??? You have trouble breathing. ??? You have chest pain. ??? You have redness, swelling, pain, or warmth in your calf or leg. ??? Your incision breaks open after sutures or lanny are removed. These symptoms may represent a serious problem that is an emergency. Do not wait to see if the symptoms will go away. Get medical help right away. Call your local emergency services (911 in the [place] Do not drive yourself to the hospital. Summary ??? After the procedure, it is common to have pain and swelling at the incision area, a small amount of blood or fluid coming from your incision, and stiffness. ??? Follow instructions from your health care provider about how to take care of your incision. ??? Use crutches, a walker, or a cane as told by your health care provider. This information is not intended to replace advice given to you by your health care provider. Make sure you discuss any questions you have with your health care provider. Document Revised: 10/15/2020 Document Reviewed: 10/15/2020 Elsevier Patient Education ?? 2022 [employer] Discharge instructions * Eliza Zavaleta: PERFORM Event Display: Discharge Instructions Authored Date: [id number] MITCHELLSIERRA :1960 Age:62 years Sex:Male Visit Date:04/26/2023 Primary Care Physician: DIAMANTE DICKINSON Hospital Discharge Instructions We would like to thank you for allowing us to assist you with your healthcare needs. The following includes patient education materials and information regarding your injury/illness. Your Next Steps Scheduled Future Appointments Wednesday 12:45 PM EST ?? With: Nila Butler APRN Where: [facility] Status: Confirmed Medications What How Much When Instructions Next Dose Unchanged acetaminophen (Tylenol 8 HR Arthritis Pain 650 mg oral tablet, extended release) 1 tab Oral (given by mouth) Every 8 hours Pickup at [facility] Unchanged albuterol (Albuterol (Eqv-ProAir HFA) 90 [...] a day Duration: 6 weeks Pickup at [facility] Unchanged atorvastatin (atorvastatin 40 mg oral tablet) 1 tab Oral (given by mouth) Every day Unchanged benzonatate (benzonatate 100 mg oral capsule) 1 Capsules Oral (given by mouth) Every 8 hours as needed for as needed for cough Unchanged betamethasone topical (betamethasone dipropionate, augmented 0.05% topical ointment) See instructions Unchanged celecoxib (celecoxib 200 mg oral capsule) 1 Capsules Oral (given by mouth) 2 times a day Duration: 14 Days take mid-day and at bedtime ?? Pickup at [facility] Unchanged hydroCHLOROthiazide (hydroCHLOROthiazide 25 mg oral tablet) 1 tab Oral (given by mouth) Every day Unchanged ketoconazole topical (ketoconazole 2% topical cream) , APPLY TWICE DAILY TO AFFECTED AREAS ON THE FACE NEEDED ?? Unchanged oxyCODONE (oxyCODONE 5 mg oral tablet) See instructions 1-2 tab Oral every 4- 6 hr, As needed for as needed for pain ?? Pickup at [facility] Unchanged polyethylene glycol 3350 (MiraLax oral powder for reconstitution) 17 Gram Oral (given by mouth) Every day Pickup at [facility] Pharmacy Information [facility]: [address], [place] [id number] [phone] ?? What How Much When Comments Stop Taking ibuprofen (ibuprofen 200 mg oral tablet) 2 tab Oral (given by mouth) Every 4 hours as needed for as needed for pain Your Summary Your Care Team Admitting Physician - Justyna Negro, DO Attending Physician - Justyna Negro, DO Primary Care Physician - DIAMANTE DICKINSON Referring Physician - Justyna Negro, DO Your Diagnosis Blood tests prior to treatment or procedure Encounter for screening for hematologic disorder Encounter for screening for metabolic disorder Encounter for screening for other infectious and parasitic diseases Osteoarthritis of right knee Problems Ongoing - Any problem that you are currently receiving treatment for. Arthritis of right acromioclavicular joint Bilateral primary osteoarthritis of knee Colonic polyp Derangement of medial meniscus due to injury of knee Eczema Hearing impaired HLD - Hyperlipidemia HTN (hypertension) Idiopathic osteoarthritis Osteoarthritis of knee Osteoarthritis of right knee joint Procedures Performed ???Total Knee Arthroplasty (Right) (04/26/2023)???Arthroscopy of knee???Colonoscopy Tests Performed/Pending XR Knee 3 Views Right Discharge Vitals Temperature??(Temporal Artery) 97.9 ??F (36.6 ??C) Heart Rate??(Peripheral) 89 Respiratory Rate?? 16 Blood Pressure?? 109/61?? Allergies No Known Allergies No Known Medication Allergies Devices Implanted/Removed This Visit Notice: You have devices implanted this visit that may not be MRI compatible. Implanted Total Knee Arthroplasty Knee R ???BONE CEMENT 04/26/2023???PATELLA CEMENTED 29MM JOANIE VIVACIT-E 04/26/2023???PSN FEM CR POR CCR STD SZ11 R 04/26/2023???PSN MC VE ASF R 16MM 8- 11 GH 04/26/2023???PSN TIB POR 2 PEG SZ G R 04/26/2023 Education Materials [facility] Discharge Instructions ? Name: Sierra Mitchell Surgery: Right knee replacement ? General Instructions: ? Keep [...] times daily for 20-30 minutes at a time. Dressing Instructions: ? KNEE REPLACEMENTS: Physical therapy [...] All refill requests will be taken at [phone]. This is your responsibility to keep track [...] Complications: If you experience the following call [phone]. Please try to call with questions during normal business hours. After hour calls should be for emergency use only. ? Red streaking extending out away from wound ? Drainage from wound- small amount of blood is ok, pus is not ? Fever (101 or above), nausea, vomiting-- inability to drink fluids ? Follow up Care: ? POST OP APPOINTMENT Date/Time: 05/04/23 @ 12:45 [place] Office ? Nila KassandraRaymundoSasha TREAD BUILDER ? Return to Work/School: not until follow up ? Patient Signature ? Please keep this handy at home so that you may refer to it if you think of a question. Total Knee Replacement, Care After This sheet gives you information about how to care for yourself after your procedure. Your health care provider may also give you more specific instructions. If you have problems or questions, contact your health care provider. What can I expect after the procedure? After the procedure, it is common to have: ? Redness, pain, and swelling at the incision area. ? Stiffness. ? Discomfort. ? A small amount of blood or clear fluid coming from your incision. Follow these instructions at home: Medicines ? Take thta-evp-myqifvn and prescription medicines only as told by your health care provider. ? If you were prescribed a blood thinner (anticoagulant), take it as told by your health care provider. ? Ask your health care provider if the medicine prescribed to you: ? Requires you to avoid driving or using machinery. ? Can cause constipation. You may need to take these actions to prevent or treat constipation: ? Drink enough fluid to keep your urine pale yellow. ? Take gwgm-lml-kydgnoz or prescription medicines. ? Eat foods that are high in fiber, such as beans, whole grains, and fresh fruits and vegetables. ? Limit foods that are high in fat and processed sugars, such as fried or sweet foods. Incision care ? Follow instructions from your health care provider about how to take care of your incision. Make sure you: ? Wash your hands with soap and water for at least 20 seconds before and after you change your bandage (dressing). If soap and water are not available, use hand hazardous substances engineer. ? Change your dressing as told by your health care provider. ? Leave stitches (sutures), lanny, skin glue, or adhesive strips in place. These skin closures may need to stay in place for 2 weeks or longer. If adhesive strip edges start to loosen and curl up, you may trim the loose edges. Do not remove adhesive strips completely unless your health care provider tells you to do that. ? Do not take baths, swim, or use a hot tub until your health care provider approves. ? Check your incision area every day for signs of infection. Check for: ? More redness, swelling, or pain. ? More fluid or blood. ? Warmth. ? Pus or a bad smell. Activity ? Rest as told by your health care provider. ? Avoid sitting for a long time without moving. Get up to take short walks every 1???2 hours. This isimportant to improve blood flow and breathing. Ask for help if you feel weak or unsteady. ? Follow instructions from your health care provider about using a walker, crutches, or a cane. ? You may use your legs to support (bear) your body weight as told by your health care provider. Follow instructions about how much weight you may safely support on your affected leg (weight-bearing restrictions). ? A physical therapist may show you how to get out of a bed and chair and how to go up and down stairs. You will first do this with a walker, crutches, or a cane and then without any of these devices. ? Once you are able to walk without a limp, you may stop using a walker, crutches, or a cane. ? Do exercises as told by your health care provider or physical therapist. ? Avoid high-impact activities, including running, jumping rope, and doing jumping jacks. ? Do not play contact sports until your health care provider approves. ? Return to your normal activities as told by your health care provider. Ask your health care provider what activities are safe for you. Managing pain, stiffness, and swelling ? If directed, put ice on your knee. To do this: ? Put ice in a plastic bag or use the icing device (cold flow pad) that you were given. Follow instructions from your health care provider about how to use the icing device. ? Place a towel between your skin and the bag or between your skin and the icing device. ? Leave the ice on for 20 minutes, 2???3 times a day. ? Remove the ice if your skin turns bright red. This is very important. If you cannot feel pain, heat, or cold, you have a greater risk of damage to the area. ? Move your toes often to reduce stiffness and swelling. ? Raise (elevate) your leg above the level of your heart while you are sitting or lying down. ? Use several pillows to keep your leg straight. ? Do not put a pillow just under the knee. If the knee is bent for a long time, this may lead to stiffness. ? Wear elastic knee support as told by your health care provider. Safety ? To help prevent falls, keep floors clear of objects you may trip over. Place items that you may need within easy reach. ? Wear an apron or tool belt with pockets for carrying objects. This leaves your hands free to help with your balance. ? Ask your health care provider when it is safe to drive. General instructions ? Wear compression stockings as told by your health care provider. These stockings help to prevent blood clots and reduce swelling in your legs. ? Continue with breathing exercises. This helps prevent lung infection. ? Do not use any products that contain nicotine or tobacco. These products include cigarettes, chewing tobacco, and vaping devices, such as e-cigarettes. These can delay healing after surgery. If you need help quitting, ask your health care provider. ? Tell your health care provider if you plan to have dental work. Also: ? Tell your dentist about your joint replacement. ? Ask your health care provider if there are any special instructions you need to follow before having dental care and routine cleanings. ? Keep all follow-up visits. This is important. Contact a health care provider if: ? You have a fever or chills. ? You have a cough or feel short of breath. ? Your medicine is not controlling your pain. ? You have any of these signs of infection: ? More redness, swelling, or pain around your incision. ? More fluid or blood coming from your incision. ? Warmth coming from your incision. ? Pus or a bad smell coming from your incision. ? You fall. Get help right away if: ? You have severe pain. ? You have trouble breathing. ? You have chest pain. ? You have redness, swelling, pain, or warmth in your calf or leg. ? Your incision breaks open after sutures or lanny are removed. These symptoms may represent a serious problem that is an emergency. Do not wait to see if the symptoms will go away. Get medical help right away. Call your local emergency services (911 in the [place] Do not drive yourself to the hospital. Summary ? After the procedure, it is common to have pain and swelling at the incision area, a small amount ofblood or fluid coming from your incision, and stiffness. ? Follow instructions from your health care provider about how to take care of your incision. ? Use crutches, a walker, or a cane as told by your health care provider. This information is not intended to replace advice given to you by your health care provider. Make sure you discuss any questions you have with your health care provider. Document Revised: 10/15/2020 Document Reviewed: 10/15/2020 [employer] Patient Education ?? 2022 [employer] Patient/Oil Well Perforator Operator Signature Patient Name:SIERRA MITCHELL I have received this information and my questions have been answered. Patient/Oil Well Perforator Operator Name: Patient/Oil Well Perforator Operator Signature: Relationship to Patient: Witness Name/Signature: Date: Electronically Signed on: 04/26/2023 14:44 ESTSigned by:ED * Event Display: Discharge Instructions History and physical note * Event Display: History and Physical Update * Event Display: History and Physical Patient Care team information Care Team Personnel Name: DIAMANTE DICKINSON Position: No Access Member Role: Primary Care Physician Address: Address: [address] [place] [id number] [place] [address] Care Team Related Persons Name: LATRICE MITCHELL
--- OUTSIDE RECORDS SUMMARY | 2024-06-05 14:52 | XMS_ITS | Continuity of Care Document ---
Author Organization [facility] Ambulatory Clinics Address [address] [place] [address] Care Team Providers Care Glued Wood Tester Name Role Phone Kody Lambert Valero Primary Care Physician [phone] Encounter [facility] NBR [id number] Date(s): 09/18/22 - 09/18/22 [facility] Ambulatory Clinics [address] [place] [address] [place] Encounter Diagnosis Arthritis of right acromioclavicular joint(Discharge Diagnosis) - 09/18/22 Discharge Disposition: Home or Self Care Attending Physician: Mook Carrillo MD Allergies, Adverse Reactions, Alerts No Known Allergies Functional Status 09/18/22 Other exposure to Infectious Disease Non e [...] extremities, # 100 g, 0 Refill(s), Pharmacy: [facility] Start Date: 09/18/22 Status: Ordered Problem [...] Range]: 1 Peripheral Pulse Rate [60-100 bpm] 69 bp m (09/18/22 9:53 AM) Blood Pressure [90-140/60-90 mmHg] 126/7 2mmHg (09/18/22 9:53 AM) Weight 97.52 kg (09/18/22 9:53 AM) Weight Measured (lbs) 214.995 lb (09/18/22 9:53 AM) Height 177.8 cm (09/18/22 9:53 AM) Height/Length Measured (inches) 70 inch (09/18/22 9:53 AM) BSA Measured 2.19 m2 (09/18/22 9:53 AM) Body Mass Index 30.85 kg/m2 (09/18/22 9:53 AM) Social History Social History Type Response Tobacco Never tobacco user T obacco Use:. Sex Physician Outpatient Note * Moko Carrillo MD: PERFORM Event Display: Office Clinic Note Physician Authored Date: [id number] SIERRA MITCHELL :1960 Age:61 years Sex:Male Visit Date:09/18/2022 Primary Care Physician: Lambert Gates Chief Complaint RIGHT SHOULDER History of Present Illness The patient is well-known to me I treated him for knee osteoarthritis??but now comes in with a chief complaint of right shoulder pain. ??According the patient the pains been present for about 2 months he thinks it began when he was splitting wood during sugaring season.?? When asked to localize thepain he actually points??right to the midshaft of his clavicle and up into his??trapezius area??he says the pain??mostly occurs when he sleeps on his side but does have some pain with??reaching and lifting.?? Thus far has had no treatment for this. Physical Exam Vitals & Measurements HR:??69??(Peripheral)?? BP:??126/72?? SpO2:??95%?? HT:??177.8??cm?? WT:??97.52??kg?? BMI:??30.85?? Pain Score:??4?? BSA:??2.19?? Review of studies: X-rays of right shoulder are reviewed and are negative. ?? Both shoulders are examined. Range of motion of the shoulder is examined in the forward elevation, abduction, external rotation and internal rotation behind the back planes. External rotation is assessed both with the arm in neutral adduction and at 90 degrees of abduction. Similarly internal rotation is performed at 90 degrees of abduction and is compared with the contralateral side. Neer and Alcazar impingement signs are examined. Strength is assessed in forward elevation, abduction, externaland internal rotation planes.?Cross-arm adduction test is examined. The shoulder is systematically palpated anteriorlyin the region of the coracoid process, the anterior joint line and bicipital groove. The AC joint is palpated. The greater tuberosity is palpated. The posterior joint line is palpated. Galloway and active compression tests are performed. The supraspinatus and infraspinatus fossa are examined for signs of atrophy. Stability is test using the apprehension, relocation and Jerk Test. ?? Focused exam of the right shoulder shows negative impingement signs 5 out of 5 rotator cuff strength. ??There is??some mild tenderness over the AC joint moderate tenderness over the sternoclavicular joint,??there is some mild tenderness over the midshaft of the clavicle.?? No glenohumeral instability Assessment/Plan 1.??Arthritis of right acromioclavicular joint??M19.011 Patient with very atypical pain??is really??in the area of his clavicle??and I told patient it is possible this??may be??referred from his sternoclavicular joint possibly the AC joint.?? Is also possible this may be??radiating from his??cervical spine.?? My plan is to let Don??just avoid any??lifting or overhead use of the arm for couple weeks??he is can put Voltaren gel in the area of the sternoclavicular joint??if it does not get better he will return??and??if the SC joint was still very sorepotentially will inject that??I also might get more advanced imaging of??the region. Orders: Voltaren 1% topical gel, See Instructions, 1 cooper Topical QID not to exceed 8 grams/day/single jointof upper extremities, # 100 g, 0 Refill(s), Pharmacy: [facility] Problem List/Past Medical History Ongoing Arthritis of right acromioclavicular joint Bilateral primary osteoarthritis of knee Derangement of medial meniscus due to injury of knee HTN (hypertension) Idiopathic osteoarthritis Osteoarthritis of knee Osteoarthritis of right knee joint Historical No qualifying data Medications amLODIPine 10 mg oral tablet atorvastatin 40 mg oral tablet, 40 mg= 1 tab, Oral, Daily hydroCHLOROthiazide 25 mg oral tablet, 25 mg= 1 tab, Oral, Daily ibuprofen 200 mg oral tablet, 400 mg= 2 tab, Oral, every 4 hr, PRN Voltaren 1% topical gel, See Instructions Allergies No Known Allergies No Known Medication Allergies Social History Electronic Cigarette/Vaping Electronic Cigarette Use: Never. Tobacco Never tobacco user Tobacco Use:. Electronically Signed on 09/18/22 10:26 AM Mook Carrillo MD Patient Care team information Care Team Personnel Name: Lambert Gates Position: No Access Member Role: Primary Care Physician Address: Address: [address] [place] [id number]- Care Team Related Persons Name: LATRICE MITCHELL
--- OUTSIDE RECORDS SUMMARY | 2024-06-05 14:53 | XMS_ITS | Continuity of Care Document ---
Author Organization [facility] Ambulatory Clinics Address [address] [place] [address] Care Team Providers Care Director Of Materials Name Role Phone DIAMANTE DICKINSON Primary Care Physician Encounter [facility] N[facility] [id number] Date(s): 03/11/23 - 03/11/23 [facility] Ambulatory Clinics [address] [place] [address] [place] Encounter Diagnosis Osteoarthritis of right knee(Discharge Diagnosis) - 03/11/23 History of total knee arthroplasty(Discharge Diagnosis) - 03/11/23 Discharge Disposition: Home or Self Care Attending Physician: Valencia Bean BASEBALL WINDER, Allergies, Adverse Reactions, Alerts No Known Allergies [...] Range]: 1 Peripheral Pulse Rate [60-100 bpm] 73 bp m (03/11/23 7:57 AM) Blood Pressure [90-140/60-90 mmHg] 128/7 0mmHg (03/11/23 7:57 AM) Mean Arterial Pressure, Cuff [65-140 mmH g] 89 mmHg (03/11/23 7:57 AM) Weight 106.82 kg (03/11/23 7:57 AM) Weight Measured (lbs) 235.498 lb (03/11/23 7:57 AM) Weight Dosing 106.820 kg (03/11/23 7:57 AM) Height 175.25 cm (03/11/23 7:57 AM) Height/Length Measured (inches) 69 inch (03/11/23 7:57 AM) BSA Measured 2.28 m2 (03/11/23 7:57 AM) Body Mass Index 34.78 kg/m2 (03/11/23 7:57 AM) Social History Social History Type Response Tobacco Never tobacco user T obacco Use:. 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 ??Has been treated by Dr. Inman for the past several years. ??The right knee is more symptomatic than the left.?? He has been treated with??hyaluronic acid injections, bracing, physical therapy??and the right knee has been treated with??arthroscopic debridement and lateral patella facetectomy.?? All of this was beneficial for period of time.?? Most recently??he is complaining of a constant ache that is exacerbated with activity.?? His most recent??hyaluronic acid injection did not give him any sustained relief. ??He has been indicated??for??bilateral total knee arthroplasties. ??He presents here today to discuss??proceeding with [employer]. Review of Systems Constitutional:?No??fevers,?No??chills,?No??sweats Eye:?No??recent visual problems ENT:?No??ear pain,?No??nasal congestion,?No??sore throat Respiratory:?No??shortness of breath,?No??cough Cardiovascular:?No??Chest pain,?No??palpitations,?No??syncope Gastrointestinal:?Nonausea,?No??vomiting,?No??diarrhea Genitourinary:?No??hematuria Jalen/Lymph:?No??bruising tendency,?No??swollen lymph glands Endocrine:?No??excessive thirst,??No??excessive hunger Musculoskeletal:??No??back pain,??No??neck pain,??Positive for??joint pain,??No??muscle pain,??No??decreased range of motion Integumentary:?No??rash,?No??pruritus,?No??abrasions Neurologic: Alert & oriented X 4 Psychiatric:?No??anxiety,?No??depression Physical Exam Vitals & Measurements HR:??73??(Peripheral)?? BP:??128/70?? SpO2:??96%?? HT:??175.25??cm?? WT:??106.82??kg?? BMI:??34.78?? Pain Score:??5?? BSA:??2.28?? Ambulates into the office with a slightly antalgic gait accompanied by his .?? Right knee with varus alignment that is reducible. ??Skin intact. ??2 degree flexion contracture. ??Well-healed??scars??consistent with previous surgery. ??He flexes with palpable crepitus to approximately 130 degrees. ??Good ligament stability in all planes. ??Normal muscle tone and neurovascular intact distally.?? Right knee x-rays reviewed on the [facility] system??demonstrating advanced tricompartmental osteoarthritis. ??Peripheral osteophytes present in all 3 compartments. ??Complete collapse of the medial??compartment is evident??with [id number] changes present. Assessment/Plan 1.??Osteoarthritis of right knee??M17.11 At this point conservative care is failing. ??He is indicated for outpatient??right total knee arthroplasty. ??He will??complete his physical therapy in [place].?? We will request??preoperative medical optimization visit with his primary care provider. ??We will get him on schedule at his [facility]. ??We reviewed??models and perioperative protocols, risk stratification and reasonable postop expectations.?? At the conclusion of the visit we spent approximately 35 minutes with 30 of those 35 minutes direct [id number] counseling discussing this. Problem List/Past Medical History Ongoing Arthritis of right acromioclavicular joint Bilateral primary osteoarthritis of knee Derangement of medial meniscus due to injury of knee HTN (hypertension) Idiopathic osteoarthritis Osteoarthritis of knee Osteoarthritis of right knee joint Historical No qualifying data Medications Albuterol (Eqv-ProAir HFA) 90 mcg/inh inhalation aerosol, 2 puffs, Inhale, every 4 hr, PRN amLODIPine 10 mg oral tablet atorvastatin 40 mg oral tablet, 40 mg= 1 tab, Oral, Daily benzonatate 100 mg oral capsule, 100 mg= 1 cap, Oral, every 8 hr, PRN betamethasone dipropionate, augmented 0.05% topical ointment hydroCHLOROthiazide 25 mg oral tablet, 25 mg= 1 tab, Oral, Daily ibuprofen 200 mg oral tablet, 400 mg= 2 tab, Oral, every 4 hr, PRN ketoconazole 2% topical cream Allergies No Known Allergies No Known Medication Allergies Social History Electronic Cigarette/Vaping Electronic Cigarette Use: Never. Tobacco Never tobacco user Tobacco Use:. Electronically Signed on 03/11/23 08:42 AM Justyna Negro DO Patient Care team information Care Team Personnel Name: DIAMANTE DICKINSON Position: No Access Member Role: Primary Care Physician Address: Address: [address] [place] [id number] [place] [address] Care Team Related Persons Name: LATRICE MITCHELL
--- OUTSIDE RECORDS SUMMARY | 2024-06-05 14:53 | XMS_ITS | Encounter Summary ---
Author Organization [facility] Address [facility] [place] [address] Care Team Providers Care Beef Trimmer Name Role Phone Lambert Gates MD Primary Care Provider [phone] Encounter Details Date Type Department Care Team (Late st Contact Info) Description 04/16/2023 Telephone Dermatology at [facility] [address] [place] [address] Raquel Driscoll MD [facility] [place] [address] [place] [address] Social History Tobacco Use Types Packs/Day Years Used Date Smoking Tobacco: Never Smokeless Tobacco: Never Alcohol Use Standard Drinks/Week Comments Not Currently 0 (1 standard drink = 0.6 oz pur e alcohol) Sex and Gender Information Value Date Recorded Sex Assigned at Not on file Gender Identity Not on file Sexual Orientation Not on file documented as of this encounter Miscellaneous Notes * Telephone Encounter - Eliza Wei - 04/16/2023 10:10 AM EST Medication Request Who requested: Ced Singleton Medication(s): augmented betamethasone dipropionate (Diprolene-AF) 0.05 % Ointment Pharmacy: [id number] - [place], [place] Last seen: 07/14/22 Follow up scheduled for: Visit date not found Comments: Patient is aware it make take medical team up to three business days to process refill requests. Please ask pharmacy to contact patient when medication is available for picking tech. If unable to refill medication please contact patient. Patient contact: documented in this encounter Plan of Treatment Upcoming Encounters Date Type Department Care Team (Late st Contact Info) Description 09/26/2024 10:30 AM EDT Office Visit Dermatology at [facility] [address] [place] [address] Raquel Driscoll MD [facility] [place] [address] documented as of this encounter Visit Diagnoses Not on filedocumented in this encounter Care Teams Beef Trimmer Relationship Specialty Start Date End Date Lambert Gates MD [address] [place] [address] PCP - General Internal Medicine 04/24/19 documented as of this encounter
--- OUTSIDE RECORDS SUMMARY | 2024-06-05 14:53 | XMS_ITS | Encounter Summary ---
Author Organization [facility] Address [facility] [place] [address] Care Team Providers Care Tie Sawyer Name Role Phone Lambert Gates MD Primary Care Provider [phone] Reason for Visit * Reason Onset Date Comments Medication Refill 04/16/2023 Encounter Details Date Type Department Care Team (Late st Contact Info) Description 04/16/2023 Refill Dermatology at [facility] [address] [place] [address] Raquel Driscoll MD [facility] [place] [place] [address] Nummular eczema Social History Tobacco Use Types Packs/Day Years [...] encounter Miscellaneous Notes * Telephone Encounter - Kina Velasquez LPN - 04/16/2023 10:59 AM EST Medication Refill Request Order(s) pended and routed to Dr. Driscoll to review and sign, if appropriate. - Medication(s) requested to refill: betamethasone - Associated diagnosis: eczema - Last visit: 07/14/2022 - Recommended follow up: one year - Next scheduled: Visit date not found - Special considerations: none - Appropriate to refill: ys documented in this encounter Plan of Treatment Upcoming Encounters Date Type Department Care Team (Late st Contact Info) Description 09/26/2024 10:30 AM EDT Office Visit Dermatology at [facility] [address] [place] [address] Raquel Driscoll MD [facility] [place] [address] documented as of this encounter Visit Diagnoses Diagnosis Nummular eczema Contact dermatitis and other eczema, due to unspecified cause documented in this encounter Care Teams Tie Sawyer Relationship Specialty Start Date End Date Lambert Gates MD [address] [place] [address] PCP - General Internal Medicine 04/24/19 documented as of this encounter
--- OUTSIDE RECORDS SUMMARY | 2024-06-05 14:53 | XMS_ITS | Encounter Summary ---
Author Organization [facility] Address [facility] [place] [address] Care Team Providers Care Fence Setter Name Role Phone Lambert Gates MD Primary Care Provider [phone] Encounter Details Date Type Department Care Team (Late st Contact Info) Description 09/21/2023 3:00 PM EDT Office Visit Dermatology at [facility] [address] [place] [address] Feliz Driscoll MD [facility] [place] [address] AK (actinic keratosis); Lentigines; Multiple benign nevi; SK (seborrheic keratosis) Social History Tobacco Use Types Packs/Day Years Used Date Smoking Tobacco: Never Smokeless Tobacco: Never Alcohol Use Standard Drinks/Week Comments Not Currently 0 (1 standard drink = 0.6 oz pur e alcohol) Sex and Gender Information Value Date Recorded Sex Assigned at Not on file Gender Identity Not on file Sexual Orientation Not on file documented as of this encounter Progress Notes * Feliz Driscoll MD - 09/21/2023 3:00 PM EDT Images from the original note were not included. DEPARTMENT OF DERMATOLOGY Medical Dermatology Clinic Provider: FELIZ DRISCOLL MD Patient's preferred name Don Preferred contact method for results [x]Phone []myD-H []Letter Detailed phone message OK? Yes, on cell or work phones Are there any other people with whom we may discuss your care? 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 Pre-Procedure Questions Details Allergy to lidocaine, epinephrine, Dermabond, chlorhexidine, or adhesives No Bleeding disorder or blood thinners No Pacemaker, defibrillator, deep brain stimulator, cochlear implant No History of Present Illness: Ced Singleton is a 62 y.o. Patient returns to clinic today for a full skin exam, patient reports: no concerning spots for today's visit - 8 weeks post op bilateral knee replacements Last visit at Dermatology: 07/14/2022 Last visit with this provider: 07/14/2022 Medications: Reviewed in eD-H Allergies: Reviewed in eD-H Skin Examination: Full skin examination: Patient asked to undress to their comfort level. Verbalized that the provider's preference is that patient remove all clothing and that the provider will not examine areas patient elects to keep covered. Examination of the scalp, hair, head, face, ears, neck, chest, axillae, abdomen, back, buttocks, genitalia, and upper and lower extremities was normal with the exception ofthe findings below. Assessment/Plan #. Actinic Keratoses - Ill-defined gritty papules on the left sideburn x1, right lateral eyebrow x1. - Explained premalignant potential of these lesions. - Discussed treatment with cryotherapy. Patient elects to proceed with cryotherapy today. - Instructed patient to return to clinic for re-evaluation if lesion(s) does not resolve as expected with this treatment. Procedure: Destruction of lesion(s) with cryotherapy (LN2). Location(s): As noted above. Number: 2 Discussed procedure and expectations, including risks and benefits. Verbal consent obtained. Treated with LN2. There were no complications; Patient tolerated the procedure well. Post-procedure expectations and wound care reviewed. #. Lentigines - Scattered light-brown, evenly pigmented, well-demarcated macules on sun-exposed areas of the trunk and extremities. - No worrisome pigmented lesions. Discussed benign nature of lesions and provided reassurance. Willcontinue to monitor. #. Benign Nevi - Scattered medium brown, evenly pigmented macules and papules on the trunk and extremities with reassuring pigment pattern on dermoscopy. - Discussed benign nature of lesions and provided reassurance. Will continue to monitor. #. Seborrheic Keratoses - Stuck on, waxy papules on the trunk and extremities. - Discussed benign nature of lesions and provided reassurance. No treatment necessary at this time. Other: OTC skin products discussed RTC: 1 year full skin exam // sooner as needed []Note routed to executive secretary social welfare []Recall placed in scheduling system [x]Appointment scheduled at checkout Scribe attestation: SIMBA Sánchez has performed the documentation for this encounter in the presence of and acting as a scribe for FELIZ DRISCOLL MD. I performed the above scribed service and agree with the accuracy of the documentation in this encounter. Reviewed and signed by: FELIZ DRISCOLL MD [facility] documented in this encounter Plan of Treatment Upcoming Encounters Date Type Department Care Team (Late st Contact Info) Description 09/26/2024 10:30 AM EDT Office Visit Dermatology at [facility] [address] [place] [address] Feliz Driscoll MD [facility] [place] [address] documented as of this encounter Visit Diagnoses Diagnosis AK (actinic keratosis) Actinic keratosis Lentigines Other dyschromia Multiple benign nevi Benign neoplasm of skin, site unspecified SK (seborrheic keratosis) Other seborrheic keratosis documented in this encounter Care Teams Fence Setter Relationship Specialty Start Date End Date Lambert Gates MD [address] [place] [address] PCP - General Internal Medicine 04/24/19 documented as of this encounter
--- OUTSIDE RECORDS SUMMARY | 2024-06-05 14:53 | XMS_ITS | Encounter Summary ---
Author Organization [facility] Address [facility] [place] [address] Care Team Providers Care Flight Crew Time Clerk Name Role Phone Lambert Gates MD Primary Care Provider [phone] Encounter Details Date Type Department Care Team (Late st Contact Info) Description 05/17/2024 Refill Dermatology at [facility] [address] [place] [address] Raquel Driscoll MD [facility] [place] [place] [address] Nummular eczema Social History Tobacco Use Types [...] Telephone Encounter - Kina Velasquez LPN - 05/18/2024 2:55 PM EST Medication Refill Request Order(s) pended and routed to Dr. Méndez review and sign, if appropriate. - Medication(s) requested to refill: Ketoconazole cream - Associated diagnosis: ciaran derm - Last visit: 09/21/2023 - Recommended follow up: one year - Next scheduled: 05/22/2024 - Special considerations: none - Appropriate to refill: yes * Telephone Encounter - Luiza Ivory - 05/17/2024 1:38 PM EST Medication Request Who requested: Ced Singleton Medication(s): ketoconazole (Nizoral) 2 % Cream Pharmacy: [facility] [address] Last seen: 09/21/23 Follow up scheduled for: 09/26/2024 Comments: Patient is aware it make take medical team up to three business days to process refill requests. 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 If unable to refill medication please contact patient. documented in this encounter Plan of Treatment Upcoming Encounters Date Type Department Care Team (Late st Contact Info) Description 09/26/2024 10:30 AM EDT Office Visit Dermatology at [facility] [address] [place] [address] Raquel Driscoll MD [facility] [place] [address] documented as of this encounter Visit Diagnoses Diagnosis Nummular eczema Contact dermatitis and other eczema, due to unspecified cause documented in this encounter Care Teams Flight Crew Time Clerk Relationship Specialty Start Date End Date Lambert Gates MD [address] [place] [address] PCP - General Internal Medicine 04/24/19 documented as of this encounter
--- OUTSIDE RECORDS SUMMARY | 2024-06-05 14:53 | XMS_ITS | Clinical Summary ---
Author Organization [facility] Address [facility] [place] [address] Care Team Providers Care Software Developer Manager Name Role Phone Lambert Gates MD Primary Care Provider Allergies No known active allergies Medications Medication Sig Dispensed Refills Start Date End Date Status atorvastatin (LIPITOR) 40 mg Tablet Take 40 mg by mouth daily. 03/27/2019 Active amLODIPine (NORVASC) 10 mg Tablet Take 10 mg by mouth daily. 04/18/2019 Active hydroCHLOROthiazide (Hydrodiuril) 12.5 mg Tablet TAKE 1 TABLET BY MOUTH ONCE DAILY 07/10/2020 Active augmented betamethasone dipropionate (Diprolene-AF) 0.05 % OintmentIndications:N ummular eczema Apply topically to affected area(s) on the trunk and extremities twice daily as needed for up to 2 weeks at a time for flares. Take a week off. Repeat as needed. 100 g 3 08/07/2022 Active augmented betamethasone dipropionate (Diprolene-AF) 0.05 % OintmentIndications:N ummular eczema APPLY TOPICALLY TO THE RASH ON THE LEGS TWICE DAILY FOR 2 WEEKS 45 g 04/16/2023 Active ketoconazole (Nizoral) 2 % CreamIndications:Numm ular eczema Apply twice daily to affected areas on the face as needed 60 g 1 05/24/2024 Active esomeprazole (NexIUM) [address] capsule Take 1 capsule by mouth Daily at Noon. 05/19/2024 Active pantoprazole EC (Protonix) [address] tablet Take 1 tablet by mouth Daily at Noon. 05/19/2024 Active prednisoLONE acetate (Pred-Forte) 1 % Drops, Suspension 06/01/2024 Active cephALEXin (Keflex) 500 mg capsule TAKE FOUR CAPSULES BY MOUTH 1 HOUR PRIOR TO DENTAL PROCEDURE 05/23/2024 Active metroNIDAZOLE (MetroCream) 0.75 % CreamIndications:Parris cea Apply topically to the face twice daily after washing. 45 g 5 06/02/2024 Active Active Problems Problem Noted Date Diagnosed Date Lesion of left lower eyelid 08/08/2020 Encounters Date Type Department Care Team Description 06/02/2024 10:00 AM EST Office Visit Dermatology at [facility] [address] [place] [address] Raquel Driscoll MD Rosacea 06/02/2024 Travel 05/17/[address] [facility] [address] [place] [address] Raquel Driscoll MD Nummular eczema from Last 3 Months Family History Medical History Relation Comments Amblyopia Neg Hx Glaucoma Neg Hx Macular Degeneration Neg Hx Retinal Detachment Neg Hx Strabismus Neg Hx Social History Tobacco Use Types Packs/Day Years Used Date Smoking Tobacco: Never Smokeless Tobacco: Never Alcohol Use Standard Drinks/Week Comments Not Currently 0 (1 standard drink = 0.6 oz pur e alcohol) Sex and Gender Information Value Date Recorded Sex Assigned at Not on file Gender Identity Not on file Sexual Orientation Not on file Plan of Treatment Upcoming Encounters Date Type Department Care Team (Late st Contact Info) Description 09/26/2024 10:30 AM EDT Office Visit Dermatology at [facility] [address] [place] [address] Raquel Driscoll MD [facility] [place] [address] Health Maintenance Due Date Last Done Comments CT Colonography 1960 Colonoscopy 1959 Colorectal Cancer Screening 1960 FIT DNA 1960 FIT 1960 Sigmoidoscopy (10 year) with FIT yearly 1960 Sigmoidoscopy 1960 HIV screen 10/19/1977 Hepatitis C Screening 10/19/1977 Tetanus/Diphtheria/Pertussis Vaccines (1 - Tdap) 10/19 Pneumoccocal Vaccine: 50+ (1 of 1 - PCV) 10/19/2009 Zoster vaccine (1 of 2) 10/19/2009 Advance Directive 10/19/2014 Covid-19 Vaccine (1 - 2023- season) 2024 Influenza (Flu) vaccine (1 o f 1 - Influenza standard series) 01/09/2024 Care Teams Software Developer Manager Relationship Specialty Start Date End Date Lambert Gates MD [address] [place] [address] PCP - General Internal Medicine 04/24/19
--- OUTSIDE RECORDS SUMMARY | 2024-06-05 14:53 | XMS_ITS | Encounter Summary ---
Author Organization [facility] Address [facility] [place] [address] Care Team Providers Care Lumber Piler Name Role Phone Lambert Gates MD Primary Care Provider [phone] Reason for Visit * Reason Comments Skin Check Encounter Details Date Type Department Care Team (Late st Contact Info) Description 06/02/2024 10:00 AM EST Office Visit Dermatology at [facility] [address] [address] Feliz Driscoll MD [facility] [place] [address] Rosacea Social History Tobacco Use Types Packs/Day Years [...] Progress Notes * Feliz Driscoll MD - 06/02/2024 10:00 AM EST Images from the original note were not included. DEPARTMENT OF DERMATOLOGY Medical Dermatology Clinic Provider: FELIZ DRISCOLL MD Patient's preferred name Don Preferred contact method for results [x]Phone []myD-H []Letter Detailed phone message OK? Yes Are there any other people with whom we may discuss your care? (Shahla) Past Medical History Date, location, treatment Melanoma No Dysplastic nevi No SCC No BCC No AKs Yes: LN2 UV Exposure & Protection Other relevant past medical history 08/08/20: Left lower lid lesion, SK (shave bx) + Eczema w/ id reaction (triamcinolone cream, augmented betamethasone ointment, Benadryl, Zyrtec) + Rosacea (metronidazole cream, sulfacetamide sodium-sulfur cleanser, azelaic acid gel) + Seborrheic dermatitis (ketoconazole cream) + Hx of impetigo (mupirocin, doxycycline x 10 days) Family History Details Melanoma No known NMSC No known Other relevant family history No Social History 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 Patient returns to the clinic today for a focused exam with the following concerns: - Face is red and pimply. It clears up but recurs spontaneously. Using a CeraVe moisturizer; no prescription topicals. Last FSE: 09/21/2023 Medications: Reviewed in eD-H Allergies: Reviewed in eD-H Skin Examination: Focused skin examination of the face was normal with the exception of the findings below. Assessment/Plan A. Rosacea - Diffuse erythema and papulopustules on the central face. - Discussed that the redness and pimples are rosacea. - Reviewed common triggers: alcohol, caffeine, spicy foods, sun exposure, and extreme temperatures. - Previous treatment with metronidazole gel, sulfacetamide sodium-sulfur cleanser, azelaic acid gel. - Recommended retrying Rx metronidazole (MetroCream) 0.75% cream: Apply topically to rosacea-prone areas of the face twice daily. - If not improved at follow up in September, could consider alternative treatments. Briefly discussed that erythema is best treated with V-Beam laser, which is considered a cosmetic treatment and not covered by insurance. Patient is interested and would like to discuss in more detail at next visit. - Emphasized importance of sun protection. Recommended OTC CeraVe AM facial lotion. Figures 1-2 Figure 3 Photo(s) taken and charted with patient's verbal consent. Other: OTC skin products discussed RTC: As scheduled on 09/26/24 for annual FSE []Note routed to social secretary []Recall placed in scheduling system [x]Appointment scheduled previously Scribe attestation: Elizabeth Mckay, RN has performed the documentation for this encounter in the presence of and acting as a scribe for FELIZ DRISCOLL MD. I performed the above scribed service and agree with the accuracy of the documentation in this encounter. Reviewed and signed by: FELIZ DRISCOLL MD Dermatology [facility] documented in this encounter Plan of Treatment Upcoming Encounters Date Type Department Care Team (Late st Contact Info) Description 09/26/2024 10:30 AM EDT Office Visit Dermatology at [facility] [address] [place] [address] Feliz Driscoll MD [facility] [place] [address] documented as of this encounter Visit Diagnoses Diagnosis Rosacea documented in this encounter Care Teams Lumber Piler Relationship Specialty Start Date End Date Lambert Gates MD [address] [place] [address] PCP - General Internal Medicine 04/24/19 documented as of this encounter
--- OUTSIDE RECORDS SUMMARY | 2024-06-05 14:53 | XMS_ITS | Encounter Summary ---
Author Organization [facility] Address [facility] [place] [address] Care Team Providers Care Director Digital Marketing Name Role Phone Lambret Gates MD Primary Care Provider [phone] Encounter Details Date Type Department Care Team (Latest Contact Info) Description 06/02/2024 Travel Social History Tobacco Use Types Packs/Day Years Used Date Smoking Tobacco: Never Smokeless Tobacco: Never Alcohol Use Standard Drinks/Week Comments Not Currently 0 (1 standard drink = 0.6 oz pur e alcohol) Sex and Gender Information Value Date Recorded Sex Assigned at Not on file Gender Identity Not on file Sexual Orientation Not on file documented as of this encounter Plan of Treatment Upcoming Encounters Date Type Department Care Team (Late st Contact Info) Description 09/26/2024 10:30 AM EDT Office Visit Dermatology at [facility] [address] [place] [address] Raquel Driscoll MD [facility] [place] [address] documented as of this encounter Visit Diagnoses Not on filedocumented in this encounter Care Teams Director Digital Marketing Relationship Specialty Start Date End Date Lambert Gates MD [address] [place] [address] PCP - General Internal Medicine 04/24/19 documented as of this encounter
--- OUTSIDE RECORDS SUMMARY | 2024-06-05 14:53 | XMS_ITS | Continuity of Care Document ---
Author Organization [facility] Address [address] [place] [address] Care Team Providers Care Superintendent Geophysical Laboratory Name Role Phone DIAMANTE DICKINSON Primary Care Physician Encounter [facility] NBR [id number] Date(s): 08/18/23 - 08/18/23 [facility] [address] [place], [place] [address] Encounter Diagnosis History of left knee replacement(Discharge Diagnosis) - 08/18/23 Discharge Disposition: Home or Self Care Attending Physician: Justyna Negro DO Referring Physician: DIAMANTE DICKINSON Allergies, Adverse Reactions, Alerts No Known Allergies Assessment and Plan Extracted from: Title:Office Visit Limited Author:Justyna jaramillo DO Date:08/18/23 1.??History of left knee rep lacement??Z96.652 Progress activity as as tolerated. ??Finish up physical therapy.?? Pushed out 6- week visit to approximately??8 weeks. ??Will see him back in about a month. Future Appointments Medications Albuterol (Eqv-ProAir HFA) 90 [...] bedtime, # 28 cap, 0 Refill(s), Pharmacy: [facility], 175, cm, 07/15/23 10:15:00 EST, Height, 100, kg, 07/15/23 10:21:00 EST, Weight Dosing Start Date: 07/20/23 Stop Date: 08/03/23 Status: Ordered cephalexin 500 mg oral capsule 500 mg = 1 cap, Oral, every 6 hr, # 40 cap, 2 Refill(s), Pharmacy: [id number], 175, cm, 07/15/23 10:15:00 EST, Height, 100, kg, 07/15/23 10:21:00 EST, Weight Dosing Start Date: 08/13/23 Stop Date: 09/12/23 Status: Ordered Ecotrin 325 mg oral delayed release tablet 325 mg = 1 tab, Oral, BID, # 84 tab, 0 Refill(s), Pharmacy: [facility], 175, cm, 07/15/23 10:15:00 EST, [...] Daily, # 238 g, 0 Refill(s), Pharmacy: [facility], 175, cm, 07/15/23 10:15:00 EST, Height, 100, kg, 07/15/23 10:21:00 EST, Weight Dosing Start Date: 07/20/23 Status: Ordered oxyCODONE 5 mg oral tablet See Instructions, PRN as needed for pain, 1-2 tab Oral every 4- 6 hr, # 60 tab, 0 Refill(s), Pharmacy: [facility], 175, cm, 07/15/23 10:15:00 EST, Height, 100, kg, 07/15/23 10:21:00 EST, Weight Dosing Start Date: 07/20/23 Status: Ordered rifAMPin 300 mg oral capsule 300 mg = 1 cap, Oral, every 12 hr, # 20 cap, 2 Refill(s), Pharmacy: [facility], 175, cm, 07/15/23 10:15:00 EST, Height, 100, kg, 07/15/23 10:21:00 EST, Weight Dosing Start Date: 08/13/23 Stop Date: 09/12/23 Status: Ordered Tylenol 8 HR Arthritis Pain 650 mg oral tablet, extended release 650 mg = 1 tab, Oral, every 8 hr, # 50 tab, 0 Refill(s), Pharmacy: [facility], 175, cm,07/15/23 10:15:00 EST, Height, [...] Pulse Rate [60-100 bpm] 70 bp m (08/18/23 10:24 AM) Weight 99.79 kg (08/18/23 10:24 AM) Weight Measured (lbs) 219.999 lb (08/18/23 10:24 AM) Weight Dosing 99.790 kg (08/18/23 10:24 AM) Height 160.02 cm (08/18/23 10:24 AM) Height/Length Measured (inches) 63 inch (08/18/23 10:24 AM) BSA Measured 2.11 m2 (08/18/23 10:24 AM) Body Mass Index 38.97 kg/m2 (08/18/23 10:24 AM) Social History Social History Type Response Tobacco Never tobacco user T obacco Use:. Sex Implantable Device List Procedure Provider Procedure Date Device Type Site Total Knee Arthroplasty Justyna NegroDO 07/20/23 U nknown Knee L Device Identifier Serial Number Lot or Batch Number Manufacturing Date Expiration Date Distinct Identification Code MRI Safety Implantable Status Assigning Authority Unknown Unknown [id number] Unknown 03/13/28 Unknown Unknown Active Unknown Unknown Unknown [id number] Unknown 11/05/25 Unknown Unknown Active Unknown Unknown Unknown [id number] Unknown 03/05/33 Unknown Unknown Active Unknown Unknown Unknown [id number] Unknown 05/07/33 Unknown Unknown Active Unknown Unknown Unknown [id number] Unknown 03/05/28 Unknown Unknown Active Unknown Procedure Provider Procedure Date Device Type Site Total Knee Arthroplasty Unknown 04/26/23 Unknown K nee R Device Identifier Serial Number Lot or Batch Number Manufacturing Date Expiration Date Distinct Identification Code MRI Safety Implantable Status Assigning Authority Unknown Unknown [id number] Unknown 09/06/32 Unknown Unknown Active Unknown Unknown Unknown [id number] Unknown 08/06/25 Unknown Unknown Active Unknown Unknown Unknown [id number] Unknown 02/02/28 Unknown Unknown Active Unknown Unknown Unknown [id number] Unknown 08/31/32 Unknown Unknown Active Unknown Unknown Unknown [id number] Unknown 07/10/27 Unknown Unknown Active Unknown Physician Outpatient Note * Justyna Negro, DO: PERFORM Event Display: Office Clinic Note Physician Authored Date: [id number] SIERRA MITCHELL :1960 Age:62 years Sex:Male Visit Date:08/18/2023 Primary Care Physician: DIAMANTE DICKINSON History of Present Illness 4 weeks??status post??left total knee??here for wound check.?? He had been started on Keflex and Bactrim??approximately a week ago. Physical Exam On physical exam he ambulates in the office with a normal gait accompanied by his . ??Left kneemidline incision healing nicely.?? The area of concern??is no longer erythematous. ??I tried to express??fluid from it and was unable to.?? He has full extension. ??He is flexing to 125 degrees. ??Good ligamentous stability. ??Neurovascular intact distally. Assessment/Plan 1.??History of left knee replacement??Z96.652 Progress activity as as tolerated. ??Finish up physical therapy.?? Pushed out 6- week visit to approximately??8 weeks. ??Will see him back in about a month. Problem List/Past Medical History Ongoing Arthritis of [...] No Known Medication Allergies Electronically Signed on 08/18/23 10:29 AM Justyna Negro DO Patient Care team information Care Team Personnel Name: DIAMANTE DICKINSON Position: No Access Member Role: Primary Care Physician Address: Address: [address] [place] [id number] [place] [address] Care Team Related Persons Name: LATRICE MITCHELL
--- OUTSIDE RECORDS SUMMARY | 2024-06-05 14:53 | XMS_ITS | Encounter Summary ---
Author Organization On License Of [facility] Address [facility] [place] [address] Care Team Providers Care Stock Sorter Name Role Phone Lambert Gates MD Primary Care Provider [phone] Reason for Visit * Reason Onset Date Comments Medication Refill 02/05/2023 Encounter Details Date Type Department Care Team (Late st Contact Info) Description 02/05/2023 Refill Dermatology at [facility] [address] [place] [address] Raquel Driscoll MD [facility] [place] [place] [address] Nummular eczema Social History Tobacco Use Types [...] Telephone Encounter - Kina Velasquez LPN - 02/05/2023 4:27 PM EDT Medication Refill Request Order(s) pended and routed to Dr. Driscoll to review and sign, if appropriate. - Medication(s) requested to refill: diprolene ointment - Associated diagnosis: Nummular Eczema - Last visit: 07/14/2022 - Recommended follow up: one year - Next scheduled: Visit date not found - Special considerations: None - Appropriate to refill: Yes documented in this encounter Plan of Treatment Upcoming Encounters Date Type Department Care Team (Late st Contact Info) Description 09/26/2024 10:30 AM EDT Office Visit Dermatology at [facility] [address] [place] [address] Raquel Driscoll MD [facility] [place] [address] documented as of this encounter Visit Diagnoses Diagnosis Nummular eczema Contact dermatitis and other eczema, due to unspecified cause documented in this encounter Care Teams Stock Sorter Relationship Specialty Start Date End Date Lambert Gates MD [address] [place] [address] PCP - General Internal Medicine 04/24/19 documented as of this encounter
--- OUTSIDE RECORDS SUMMARY | 2024-06-05 14:53 | XMS_ITS | Encounter Summary ---
Author Organization [facility] Address [facility] [place] [address] Care Team Providers Care Grapple Crew Leader Name Role Phone Lambert Gates MD Primary Care Provider [phone] Encounter Details Date Type Department Care Team (Late st Contact Info) Description 02/05/2023 Telephone Dermatology at [facility] [address] [place] [address] Raquel Driscoll MD [facility] [place] [address] Social History Tobacco Use Types Packs/Day Years [...] * Telephone Encounter - Eliza Wei - 02/05/2023 8:40 AM EDT Medication Request Who requested: Ced Singleton Medication(s): augmented betamethasone dipropionate (Diprolene-AF) 0.05 % Ointment Pharmacy: [id number] - [place], [place] Last seen: 07/14/22 Follow up scheduled for: Visit date not found Comments: Patient is aware it make take medical team up to three business days to process refill requests. 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 If unable to refill medication please contact patient. Patient contact: [phone] documented in this encounter Plan of Treatment Upcoming Encounters Date Type Department Care Team (Late st Contact Info) Description 09/26/2024 10:30 AM EDT Office Visit Dermatology at [facility] [address] [place] [address] Raquel Driscoll MD [facility] [place] [address] documented as of this encounter Visit Diagnoses Not on filedocumented in this encounter Care Teams Grapple Crew Leader Relationship Specialty Start Date End Date Lambert Gates MD [address] [place] [address] PCP - General Internal Medicine 04/24/19 documented as of this encounter
--- OUTSIDE RECORDS SUMMARY | 2024-06-05 14:53 | XMS_ITS | Continuity of Care Document ---
Author Organization [facility] Address [address] [place] [address] Care Team Providers Care Handstitching Machine Armhole Feller Name Role Phone TEENA DIAMANTE Valero Primary Care Physician Encounter [facility] NBR [id number] Date(s): 09/01/23 - 09/01/[address] [address]- Discharge Disposition: Home or Self Care Attending [...] # 40 cap, 2 Refill(s), Pharmacy: [id number], 160.02, cm, 08/18/23 10:24:00 EDT, Height, [...] # 20 cap, 2 Refill(s), Pharmacy: [id number], 160.02, cm, 08/18/23 10:24:00 EDT, Height, [...] Exam Date Time Procedure Performing Provider Status 09/01/23 11:58 AM XR Knee Complete 4+ Views Left Yan Devlin (Verified) Notes: (XR Knee Complete 4+ Views Left) Reason For Exam: f/u TKA XR Knee Complete 4+ Views Left EXAM DESCRIPTION: XR Knee Complete 4+ Views Left 09/01/2023 INDICATION: F/U TKA COMPARISON: 07/20/2023 IMPRESSION: Status post left total knee arthroplasty with stable satisfactory appearance. No focal lytic or destructive changes. No acute fracture or dislocation. JOB #: [id number] Final Signed by: Phillip Torres MD Signed (Electronic Signature): 09/01/2023 12:07 pm Social History Social History Type Response Tobacco Never tobacco user T obacco Use:. Sex Implantable Device List Procedure Provider Procedure Date Device Type Site Total Knee Arthroplasty Justyna Negro DO 07/20/23 U nknown Knee L Device Identifier Serial Number Lot or Batch Number Manufacturing Date Expiration Date Distinct Identification Code MRI Safety Implantable Status Assigning Authority Unknown Unknown [id number] Unknown 03/13/28 Unknown Unknown Active Unknown Unknown Unknown [id number] Unknown 11/05/25 Unknown Unknown Active Unknown Unknown Unknown [id number] Unknown 03/05/33 Unknown Unknown Active Unknown Unknown Unknown [id number] Unknown 05/07/33 Unknown Unknown Active Unknown Unknown Unknown [id number] Unknown 03/05/28 Unknown Unknown Active Unknown Procedure Provider Procedure Date Device Type Site Total Knee Arthroplasty Unknown 04/26/23 Unknown K nee R Device Identifier Serial Number Lot or Batch Number Manufacturing Date Expiration Date Distinct Identification Code MRI Safety Implantable Status Assigning Authority Unknown Unknown [id number] Unknown 09/06/32 Unknown Unknown Active Unknown Unknown Unknown [id number] Unknown 08/06/25 Unknown Unknown Active Unknown Unknown Unknown [id number] 2 Unknown 02/02/28 Unknown Unknown Active Unknown Unknown Unknown [id number] Unknown 08/31/32 Unknown Unknown Active Unknown Unknown Unknown [id number] Unknown 07/10/27 Unknown Unknown Active Unknown Patient Care team information Care Team Personnel Name: DIAMANTE DICKINSON Position: No Access Member Role: Primary Care Physician Address: Address: [address] [place] [address] [place] Care Team Related Persons Name: LATRICE MITCHELL
--- OUTSIDE RECORDS SUMMARY | 2024-06-05 14:53 | XMS_ITS | Continuity of Care Document ---
Author Organization [facility] Address [address] [place] [address] Care Team Providers Care Heel Lift Gouger Name Role Phone DIAMANTE DICKINSON Primary Care Physician Encounter [facility] NBR [id number] Date(s): 08/30/23 - 08/30/23 [facility] [address] [place] [address] [place] Discharge Disposition: Home Allergies, Adverse Reactions, Alerts No Known Allergies Assessment and Plan Future Appointments Future Scheduled Tests Radiology* XR Knee Complete 4+ Views Left 08/31/23 Medications Albuterol (Eqv-ProAir HFA) 90 mcg/inh inhalation [...] hr, # 40 cap, 2 Refill(s), Pharmacy: [facility], 160.02, cm, 08/18/23 10:24:00 EDT, Height, [...] hr, # 20 cap, 2 Refill(s), Pharmacy: [facility], 160.02, cm, 08/18/23 10:24:00 EDT, Height, [...] Safety Implantable Status Assigning Authority Unknown Unknown [id number] Unknown 03/13/28 Unknown Unknown Active Unknown Unknown Unknown [id number] Unknown 11/05/25 Unknown Unknown Active Unknown Unknown Unknown [id number] Unknown 03/05/33 Unknown Unknown Active Unknown Unknown Unknown [id number] Unknown 05/07/33 Unknown Unknown Active Unknown Unknown Unknown [id number] Unknown 03/05/28 Unknown Unknown Active Unknown Procedure Provider Procedure Date Device Type Site Total Knee Arthroplasty Unknown 04/26/23 Unknown K nee R Device Identifier Serial Number Lot or Batch Number Manufacturing Date Expiration Date Distinct Identification Code MRI Safety Implantable Status Assigning Authority Unknown Unknown [id number] Unknown 09/06/32 Unknown Unknown Active Unknown Unknown Unknown [id number] Unknown 08/06/25 Unknown Unknown Active Unknown Unknown Unknown [id number] Unknown 02/02/28 Unknown Unknown Active Unknown Unknown Unknown [id number] Unknown 08/31/32 Unknown Unknown Active Unknown Unknown Unknown [id number] Unknown 07/10/27 Unknown Unknown Active Unknown Patient Care team information Care Team Personnel Name: DIAMANTE DICKINSON Position: No Access Member Role: Primary Care Physician Address: Address: [address] [place] [id number] [place] [address] Care Team Related Persons Name: LATRICE MITCHELL
--- OUTSIDE RECORDS SUMMARY | 2024-06-05 14:53 | XMS_ITS | Encounter Summary ---
Author Organization [facility] Address [facility] [place] [address] Care Team Providers Care Planning Supervisor Name Role Phone Lambert Gates MD Primary Care Provider [phone] Encounter Details Date Type Department Care Team (Latest Contact Info) Description 09/21/2023 Travel Social History Tobacco Use Types Packs/Day [...] 10:30 AM EDT Office Visit Dermatology at [facility] [address] [place] [address] Raquel Driscoll MD [facility] [place] [address] documented as of this encounter Visit Diagnoses Not on filedocumented in this encounter Care Teams Planning Supervisor Relationship Specialty Start Date End Date Lambert Gates MD [address] [place] [address] PCP - General Internal Medicine 04/24/19 documented as of this encounter
--- OUTSIDE RECORDS SUMMARY | 2024-06-05 14:54 | XMS_ITS | Encounter Summary ---
Author Organization [facility] Address [facility] [place] [address] Care Team Providers Care Transformer Stock Clerk Name Role Phone Lambert Gates MD Primary Care Provider Reason for Visit * Reason Comments Skin Cancer Examination Encounter Details Date Type Department Care Team (Late st Contact Info) Description 07/10/2021 9:30 AM EST Office Visit Dermatology at [facility] [address] [place] [address] Feliz Driscoll MD [facility] [place] [address] Actinic keratoses; Nummular eczema; Lentigines; Seborrheic keratoses Social History Tobacco Use Types Packs/Day Years [...] Progress Notes * Feliz Driscoll MD - 07/10/2021 9:30 AM EST Images from the original note were not included. DEPARTMENT OF DERMATOLOGY Medical Dermatology Clinic Provider: FELIZ DRISCOLL MD Patient's preferred name Don Preferred contact method for results [x]Phone []myD-H []Letter Detailed phone message OK? Y Are there any other people with whom we may discuss your care? , Shahla Past Medical History Date, location, treatment Melanoma N Dysplastic nevi N SCC N BCC N AKs LN2 UV Exposure & Protection N Other relevant past medical history 08/08/2020: left lower lid lesion, SK (biopsy by Dr. Doran) Rosacea Family History Details Melanoma N NMSC N Other relevant family history N Social History Occupation: works for [employer] insurance Other: Pre-Procedure Screening Details Allergy to lidocaine, epinephrine, Dermabond, chlorhexidine, or adhesives N Bleeding disorder or blood thinners N Implanted devices (Pacemaker, defibrillator, deep brain stimulator, cochlear implant) N History of Present Illness: Ced Singleton is a 60 y.o. Patient returns to clinic today for a full skin exam with the following concerns: - Patient notes that the eczema on the right leg has cleared but there is still a patch on the leftleg. The affected areas are asymptomatic. He uses the betamethasone ointment every day to the area on the left leg and for intermittent patches that appear. Last visit at Dermatology: 02/03/2021 Last visit with this provider: 10/24/2020 Medications: Reviewed in eD-H Allergies: Reviewed in eD-H Skin Examination: Full skin examination: Patient asked to undress to their comfort level. Verbalized that the provider's preference is that patient remove all clothing and that the provider will not examine areas patient elects to keep covered. Examination of the scalp, hair, head, face, ears, neck, chest, axillae, abdomen, back, buttocks, and upper and lower extremities was normal with the exception of the findings below. Genitalia not examined. Assessment/Plan A. Actinic Keratoses - Ill-defined gritty papules on the left adventist x 1, left cheek x 1. - Explained premalignant potential of these lesions. [...] well. Post-procedure expectations and wound care reviewed. Jared Johns Eczema - Few pink scaly papules on the back. Post-inflammatory hyperpigmentation on theleft medial lower leg. - Continue using sensitive skin care and moisturizing daily. - Continue Rx augmented betamethasone 0.05% ointment: Apply topically to affected area(s) on the trunk and extremities twice daily as needed for up to 2 weeks at a time for flares. C. Lentigines - Scattered light-brown, evenly pigmented, well-demarcated macules on sun-exposed areas of the trunk and extremities. - No worrisome pigmented lesions. Discussed benign nature of lesions and provided reassurance. Willcontinue to monitor. D. Seborrheic Keratoses - Stuck on, waxy papules on the trunk and extremities. - Discussed benign nature of lesions and provided reassurance. No treatment necessary at this time. Other: ??? N/A RTC: 6 months for eczema follow up; 1 year for FSE []Note routed to patient care secretary [x]Recall placed in scheduling system []Appointment scheduled at checkout Scribe attestation: Meena Casey and Brit Hanna CMA have performed the documentation for this encounter in the presence of and acting as a scribe for FELIZ DRISCOLL MD. I performed the above scribed service and agree with the accuracy of the documentation in this encounter. Reviewed and signed by: FELIZ DRISCOLL MD Dermatology [facility] documented in this encounter Plan of Treatment Upcoming Encounters Date Type Department Care Team (Late st Contact Info) Description 09/26/2024 10:30 AM EDT Office Visit Dermatology at [facility] [address] [place] [address] Feliz Driscoll MD [facility] [place] [place] [address] documented as of this encounter Visit Diagnoses Diagnosis Actinic keratoses Actinic keratosis Nummular eczema Contact dermatitis and other eczema, due to unspecified cause Lentigines Other dyschromia Seborrheic keratoses documented in this encounter Care Teams Transformer Stock Clerk Relationship Specialty Start Date End Date Lambert Gates MD [address] [place] [address] PCP - General Internal Medicine 04/24/19 documented as of this encounter
--- OUTSIDE RECORDS SUMMARY | 2024-06-05 14:54 | XMS_ITS | Encounter Summary ---
Author Organization Replaced By [facility] Address [facility] [place] [address] Care Team Providers Care Roads And Parking Lots Sweeper Operator Name Role Phone Lambert Gates MD Primary Care Provider [phone] Reason for Visit * Reason Comments Follow-up Encounter Details Date Type Department Care Team (Late st Contact Info) Description 10/24/2020 7:30 AM EDT Office Visit Dermatology at [facility] [address] [place] [address] Feliz Driscoll MD [facility] [place] [address] Rosacea Social History Tobacco Use Types Packs/Day Years Used Date Smoking Tobacco: Never Smokeless Tobacco: Never Alcohol Use Standard Drinks/Week Comments Not Currently 0 (1 standard drink = 0.6 oz pur e alcohol) Sex and Gender Information Value Date Recorded Sex Assigned at Not on file Gender Identity Not on file Sexual Orientation Not on file documented as of this encounter Patient Instructions * Patient Instructions* Meena Casey - 10/24/2020 7:30 AM EDT Rosacea treatment: AM: wash with sodium sulfacetamide cleanser, apply metrogel, apply SPF PM: wash with sodium sulfacetamide cleanser, apply azelaic acid documented in this encounter Progress Notes * Feliz Driscoll MD - 10/24/2020 7:30 AM EDT Images from the original note were not included. DEPARTMENT OF DERMATOLOGY Established Patient Clinic Note Provider: FELIZ DRISCOLL MD Patient Preferences Preferred name Ced Preferred contact method for results [] Home [x] Cell [] MyD-H [] Other: Permission to leave detailed message including results Yes Permission to discuss care with , Shahla Relevant social history Insurance provider Past Medical History Y/N Date, location, treatment Melanoma N DN N SCC N BCC N AK Y LN2 Immunosuppression or malignancy N Blistering sunburns or tanning bed use N Other relevant past skin history Y 08/08/2020: left lower lid lesion, SK (biopsy by Dr. Doran) Rosacea Family History Y/N Parents, siblings, children Melanoma N NMSC N Other N Procedure Screening Questions Y/N Allergies to lidocaine or epinephrine N Blood thinners N Pacemaker or defibrillator N History of Present Illness: Ced Singleton is a 60 y.o. established patient, last seen by me on 10/03/2020 Patient returns to clinic today for follow up of rosacea. - Patient notes that he continues to have some redness on the face that has not improved with the metronidazole gel treatment. He would like to discuss if there are further treatment options to improve the redness that is present. Last FSE: 05/15/2020 Medications: Reviewed in eD-H Allergies: Reviewed in eD-H Skin Examination: A focused skin examination of the face, significant for the following: Significant Findings/Assessment/Plan A. Rosacea - Scattered red, acneiform papules/pustules in a background of erythema on the central face. - Discussed common triggers, including alcohol, exercise, caffeine, spicy foods, sun exposure, and extreme temperatures. - Discussed treatment options, including topicals, laser procedures, and oral antibiotics. - Recommended strict sun protection. - Start Rx sodium sulfacetamide-sulfur 10%-5% cleanser: Use as a face wash twice daily. - Start Rx azelaic acid 15% gel: Apply topically to the face nightly after washing. Advised patientto contact clinic if prescription is expensive; will recommend an OTC alternative. - Continue Rx metronidazole (MetroGel) 0.75% gel: Apply topically to affected areas of rosacea on face in the morning after washing. - Discussed topicals may be ineffective at controlling the background of redness, recommended patient consult with Dr. Glo Emerson for cosmetic laser treatment. Other: - Discussed importance of sun protection (protective clothing and SPF 30+ broad- spectrum sunscreen)and sun avoidance strategies. Follow Up: RTC in May 2021 for: [x] FSE [] Follow up [] Note routed to payroll secretary to schedule [x] Recall in scheduling system [] Appointment scheduled before exiting If any questions or concerns arise, patient is welcome to return to clinic sooner. Meena Casey and Brit Hanan CMA have performed the documentation for this encounter in the presence of and acting as scribes for FELIZ DRISCOLL MD. I performed the above scribed service and agree with the accuracy of the documentation in this encounter. Reviewed and signed by: FELIZ DRISCOLL MD Department of Dermatology [facility] documented in this encounter Plan of Treatment Upcoming Encounters Date Type Department Care Team (Late st Contact Info) Description 09/26/2024 10:30 AM EDT Office Visit Dermatology at [facility] [address] [place] [address] Feliz Driscoll MD [facility] [place] [address] documented as of this encounter Visit Diagnoses Diagnosis Rosacea documented in this encounter Care Teams Roads And Parking Lots Sweeper Operator Relationship Specialty Start Date End Date Lambert Gates MD [address] [place] [address] PCP - General Internal Medicine 04/24/19 documented as of this encounter
--- OUTSIDE RECORDS SUMMARY | 2024-06-05 14:54 | XMS_ITS | Encounter Summary ---
Author Organization [facility] Address [facility] [place] [address] Care Team Providers Care Stripper And Opaquer Apprentice Name Role Phone Lambert Gates MD Primary Care Provider Reason for Visit * Reason Onset Date Comments Medication Refill 11/18/2022 Encounter Details Date Type Department Care Team (Late st Contact Info) Description 11/18/2022 Refill Dermatology at [facility] [address] [place] [address] Raquel Driscoll MD [facility] [place] [address] Nummular eczema Social History Tobacco Use Types [...] Telephone Encounter - Kina Velasquez LPN - 11/18/2022 1:23 PM EDT Medication Refill Request Order(s) pended and routed to Dr. Driscoll to review and sign, if appropriate. - Medication(s) requested to refill: ketoconazole cream - Associated diagnosis: ciaran derm - Last visit: 07/14/2022 - Recommended follow up: one year - Next scheduled: Visit date not found - Special considerations: none - Appropriate to refill: yes documented in this encounter Plan of Treatment Upcoming Encounters Date Type Department Care Team (Late st Contact Info) Description 09/26/2024 10:30 AM EDT Office Visit Dermatology at [facility] [address] [place] [address] Raquel Driscoll MD [facility] [place] [address] documented as of this encounter Visit Diagnoses Diagnosis Nummular eczema Contact dermatitis and other eczema, due to unspecified cause documented in this encounter Care Teams Stripper And Opaquer Apprentice Relationship Specialty Start Date End Date Lambert Gates MD [address] [place] [address] PCP - General Internal Medicine 04/24/19 documented as of this encounter
--- OUTSIDE RECORDS SUMMARY | 2024-06-05 14:54 | XMS_ITS | Encounter Summary ---
Author Organization [facility] Address [facility] [place] [address] Care Team Providers Care Data Reviewer Name Role Phone Lambert Gates MD Primary Care Provider [phone] Reason for Visit * Reason Onset Date Comments Medication Refill 01/15/2021 Encounter Details Date Type Department Care Team (Late st Contact Info) Description 01/15/2021 Refill Dermatology at [facility] [address] [place] [address] Raquel Driscoll MD [facility] [place] [address] Dermatitis Social History Tobacco Use Types Packs/Day Years [...] encounter Miscellaneous Notes * Telephone Encounter - Denice Donis LPN - 01/15/2021 4:08 PM EDT Refill of Ketoconazole, for Donald. Derm. Dx'd in 02/28/20. Not mentioned in anyother more current notes documented in this encounter Plan of Treatment Upcoming Encounters Date Type Department Care Team (Late st Contact Info) Description 09/26/2024 10:30 AM EDT Office Visit Dermatology at [facility] [address] [place] [address] Raquel Driscoll MD [facility] [place] [address] documented as of this encounter Visit Diagnoses Diagnosis Dermatitis Contact dermatitis and other eczema, due to unspecified cause documented in this encounter Care Teams Data Reviewer Relationship Specialty Start Date End Date Lambert Gates MD [address] [place] [address] PCP - General Internal Medicine 04/24/19 documented as of this encounter
--- OUTSIDE RECORDS SUMMARY | 2024-06-05 14:54 | XMS_ITS | Encounter Summary ---
Author Organization [facility] Address [facility] [place] [address] Care Team Providers Care Four H Agent Name Role Phone Lambert Gates MD Primary Care Provider [phone] Encounter Details Date Type Department Care Team (Latest Contact Info) Description 07/14/2022 Travel Social History Tobacco Use Types Packs/Day [...] 10:30 AM EDT Office Visit Dermatology at [facility] [address] [place] [address] Raquel Driscoll MD [facility] [place] [place] [address] documented as of this encounter Visit Diagnoses Not on filedocumented in this encounter Care Teams Four H Agent Relationship Specialty Start Date End Date Lambert Gates MD [address] [place] [address] PCP - General Internal Medicine 04/24/19 documented as of this encounter
--- OUTSIDE RECORDS SUMMARY | 2024-06-05 14:54 | XMS_ITS | Encounter Summary ---
Author Organization [facility] Address [facility] [place] [address] Care Team Providers Care Contract Forester Name Role Phone Lambert Gates MD Primary Care Provider [phone] Encounter Details Date Type Department Care Team (Late st Contact Info) Description 01/29/2021 10:40 AM EDT Office Visit Dermatology at [facility] [address] [place] [address] Brit Che MD [facility] DR KATHRYN [place] [address] Nummular eczema Social History Tobacco Use Types [...] as of this encounter Progress Notes * Brit Che - 01/29/2021 10:40 AM EDT Images from the original note were not included. DEPARTMENT OF DERMATOLOGY Medical Dermatology Clinic Provider: Brit Che MD Patient Preferences ?? Preferred name Don Preferred contact method for results []? Home [x]? Cell []? MyD-H []? Other: Permission to leave detailed message including results Yes Permission to discuss care with , Shahla Relevant social history Insurance provider ?? Past Medical History Y/N Date, location, treatment Melanoma N ?? DN N ?? SCC N ?? BCC N ?? [place] Y LN2 Immunosuppression or malignancy N ?? Blistering sunburns or tanning bed use N ?? Other relevant past skin history Y 08/08/2020: left lower lid lesion, SK (biopsy by Dr. Doran) Rosacea ?? Family History Y/N Parents, siblings, children Melanoma N ?? NMSC N ?? Other N ? Procedure Screening Questions Y/N Allergies to lidocaine or epinephrine N Blood thinners N Pacemaker or defibrillator N ?? History of Present Illness: Ced Singleton is a 60 y.o. Patient returns to clinic today for a follow up of the spot on the right lower leg, he notes that it is getting worse, though it has stopped oozing, he has been taking the doxycyline 100mg BID which he has been taking for about 1 week, he has also been doing the mupirocin TID which he does not think has been helping, he has also been taking thezyrtec and benadryl and using OTC calamine lotion which seems to be helping the best, he has now a new spot on the right thigh that appeared about a week ago, painful and itchy and he can feel it tingling, he notes that his hives have improved since he cut gluten out of his diet. Last visit at [facility] Derm: 01/20/2021 Last visit with this provider: 01/20/2021 Medications: Reviewed in eD-H Allergies: Reviewed in eD-H Skin Examination: Focused skin examination of the arms, legs was normal with the exception of the findings below. Assessment/Plan #. Nummular Eczema , impetigo is resolved - on the left calf and right thigh there are erythematousthin scaly plaques with no overlying crust - reviewed condition with patient including etiology and treatment options - TONEY negative for fungal elements - finish course of Rx: doxycyline 100mg BID x 10 days as previously prescribed and ok to d/c Rx: mupirocin ointment - Recommend sensitive skin care: Dove fragrance free bar soap (folds/feet only), Cerave cream/Vanicream/Aveeno daily moisturizer within a few minutes of getting out of shower, lukewarm showers - Start Rx: augmented betamethasone 0.05% ointment - apply to the rash on the arms and legs twice daily x 2 weeks - start OTC Amlactin Rapid relief cream - can consider biopsy in the future if rash is not improving or worsens Figure 1 Photo(s) taken and charted with patient's verbal consent. Other: ??? OTC skin products discussed RTC: 02/03/21 for follow up as previously scheduled, telehealth []Note routed to law secretary []Recall placed in scheduling system [x]Appointment scheduled at checkout Scribe attestation: Jarred Beavers [facility] has performed the documentation for this encounter in the presence of and acting as a scribe for Brit Che MD. I performed the above scribed service and agree with the accuracy of the documentation in this encounter. Reviewed and signed by: Brit Che MD Dermatology [facility] Patient seen and evaluated with staff blade bender furnace tender: Ruby Khan MD Department of Dermatology [facility] * Ruby Khan MD - 01/29/2021 10:40 AM EDT I directly supervised Dr. Che during this office visit. Dr. Che presented the history and physical exam to me. I then saw and examined this patient with Dr. Che . We reviewed the history andpertinent details and I confirmed the physical findings. I agree with the details of the history and physical exam as documented in Dr. Ches note. RUBY KHAN MD Staff Physician documented in this encounter Plan of Treatment Upcoming Encounters Date Type Department Care Team (Late st Contact Info) Description 09/26/2024 10:30 AM EDT Office Visit Dermatology at [facility] [address] [facility] [place] [id number] Raquel Driscoll MD [facility] [place] [address] documented as of this encounter Visit Diagnoses Diagnosis Nummular eczema Contact dermatitis and other eczema, due to unspecified cause documented in this encounter Care Teams Contract Forester Relationship Specialty Start Date End Date Lmabert Gates MD [address] [place] [address] PCP - General Internal Medicine 04/24/19 documented as of this encounter
--- OUTSIDE RECORDS SUMMARY | 2024-06-05 14:54 | XMS_ITS | Encounter Summary ---
Author Organization [facility] Address [facility] [place] [address] Care Team Providers Care K 12 Principal Name Role Phone Lambert Gates MD Primary Care Provider [phone] Reason for Visit * Reason Comments Medication Refill Encounter Details Date Type Department Care Team (Late st Contact Info) Description 04/22/2021 Refill Dermatology at [facility] [address] [place] [address] Brit Che MD [facility] DR KATHRYN [place] [address] Nummular eczema Social History Tobacco Use Types [...] Telephone Encounter - Kina Velasquez LPN - 04/24/2021 6:42 AM EST Medication(s) requested to refill Diprolene Last visit: 02/03/21 Follow up recommended 6-8 weeks F/U Scheduled: pending Assessment/Plan for this/these medications: nummular eczema Appropriate to refill: yes Special Considerations: needs follow up Order/orders pended and routed to Dr. Che for review and approval documented in this encounter Plan of Treatment Upcoming Encounters Date Type Department Care Team (Late st Contact Info) Description 09/26/2024 10:30 AM EDT Office Visit Dermatology at [facility] [address] [place] [address] Raquel Driscoll MD [facility] [place] [address] documented as of this encounter Visit Diagnoses Diagnosis Nummular eczema Contact dermatitis and other eczema, due to unspecified cause documented in this encounter Care Teams K 12 Principal Relationship Specialty Start Date End Date Lambert Gates MD [address] [place] [address] PCP - General Internal Medicine 04/24/19 documented as of this encounter
--- OUTSIDE RECORDS SUMMARY | 2024-06-05 14:54 | XMS_ITS | Encounter Summary ---
Author Organization [facility] Address [facility] [place] [address] Care Team Providers Care Pier Worker Name Role Phone Lambert Gates MD Primary Care Provider [phone] Reason for Visit * Reason Onset Date Comments Medication Refill 01/27/2021 Encounter Details Date Type Department Care Team (Late st Contact Info) Description 01/27/2021 Refill Dermatology at [facility] [address] [place] [address] Brit Che MD [facility] DR KATHRYN [place] [address] Social History Tobacco Use Types Packs/Day Years [...] Telephone Encounter - Denice Donis LPN - 01/27/2021 2:35 PM EDTSummary: Mupirocin refill Medication(s) requested to refill Mupirocin Last visit: 01/20/21 Follow up recommended 2 weeks F/U Scheduled: 02/03/21 Assessment/Plan for this/these medications: #. Impetigo complicated by diffuse urticaria- yellow honey crusting overlying erythematous scaly plaque on left calf. Scattered on the extremities there are edematous papules -Discussed that this a superficial infection of the skin with Staphylococcus Aureus and that use ofa topical antibiotic of treatment is indicated - TONEY negative for fungal elements - Rx: Mupirocin ointment TID to affected area(s) for 7-10 days - Bacterial culture taken today - Recommend zyrtec BID and benadryl at night for urticaria Appropriate to refill: yes Special Considerations: none Order/orders pended and routed to Dr. Che for review and approval documented in this encounter Plan of Treatment Upcoming Encounters Date Type Department Care Team (Late st Contact Info) Description 09/26/2024 10:30 AM EDT Office Visit Dermatology at [facility] [address] [place] [address] Raquel Driscoll MD [facility] [place] [address] documented as of this encounter Visit Diagnoses Not on filedocumented in this encounter Care Teams Pier Worker Relationship Specialty Start Date End Date Lambert Gates MD [address] [place] [address] PCP - General Internal Medicine 04/24/19 documented as of this encounter
--- OUTSIDE RECORDS SUMMARY | 2024-06-05 14:54 | XMS_ITS | Encounter Summary ---
Author Organization [facility] Address [facility] [place] [address] Care Team Providers Care Refrigeration Specialist Name Role Phone Lambert Gates MD Primary Care Provider [phone] Reason for Visit * Reason Comments Skin Lesion Encounter Details Date Type Department Care Team (Late st Contact Info) Description 10/03/2020 10:45 AM EDT Office Visit Dermatology at [facility] [address] [place] [address] Feliz Driscoll MD [facility] [place] [address] Rosacea Social History Tobacco Use Types Packs/Day [...] Progress Notes * Feliz Driscoll MD - 10/03/2020 10:45 AM EDT Images from the original note were not included. DEPARTMENT OF DERMATOLOGY Established Patient Clinic Note Provider: FELIZ DRISCOLL MD Patient Preferences Preferred name Don Preferred contact method for results [] Home [...] lid lesion, SK (biopsy by Dr. Doran) Family History Y/N Parents, siblings, children Melanoma N NMSC N Other N Procedure Screening Questions Y/N Allergies to lidocaine or epinephrine N Blood thinners N Pacemaker or defibrillator N History of Present Illness: Ced Singleton is a 59 y.o. established patient, last seen by me on 05/15/2020. Patient returns to clinic today for a focused exam with the following concerns: - Lesions on the right cheek that have been intermittently present for a while, but most recently, the lesions have been present for ~1 week. Normally the lesions resolve in a matter of a few days but because they have persisted, he would like to have them evaluated. Last FSE: 05/15/2020 Medications: Reviewed in eD-H Allergies: Reviewed in eD-H Skin Examination: A focused skin examination of the face, significant for the following: Significant Findings/Assessment/Plan A. Rosacea - Scattered red, acneiform papules/pustules in a background of erythema on the central face. - Discussed common triggers, including alcohol, exercise, caffeine, spicy foods, sun exposure, and extreme temperatures. - Discussed treatment options. - Start Rx metronidazole (MetroGel) 0.75% gel: Apply topically to affected areas of rosacea on facetwice daily after washing. Other: - N/A Follow Up: RTC in May 2021 for: [x] FSE [] Follow up [] Note routed to dental secretary to schedule [x] Recall in scheduling system [] Appointment scheduled before exiting If any questions or concerns arise, patient is welcome to return to clinic sooner. Brit Hanna CMA and Brit Hanna CMA have performed the documentation for this encounter in the presence of and acting as scribes for FELIZ DRISCOLL MD. I performed the above scribed service and agree with the accuracy of the documentation in this encounter. Reviewed and signed by: FELIZ DRISCOLL MD Department of Dermatology [facility] documented in this encounter Plan of Treatment Upcoming Encounters Date Type Department Care Team (Late st Contact Info) Description 09/26/2024 10:30 AM EDT Office Visit Dermatology at [facility] [address] [place] [address] Feliz Driscoll MD [facility] [place] [address] documented as of this encounter Visit Diagnoses Diagnosis Rosacea documented in this encounter Care Teams Refrigeration Specialist Relationship Specialty Start Date End Date Lambert Gates MD [address] [place] [address] PCP - General Internal Medicine 04/24/19 documented as of this encounter
--- OUTSIDE RECORDS SUMMARY | 2024-06-05 14:54 | XMS_ITS | Encounter Summary ---
Author Organization [facility] Address [facility] [place] [address] Care Team Providers Care Map And Chart Mounter Name Role Phone Lambert Gates MD Primary Care Provider [phone] Encounter Details Date Type Department Care Team (Late st Contact Info) Description 02/26/2021 Telephone Dermatology at [facility] [address] [place] [address] [facility] [address] [address] Social History Tobacco Use Types Packs/Day Years [...] encounter Miscellaneous Notes * Telephone Encounter - Brit Che - 02/26/2021 11:28 AM EDT Returned Don's call this afternoon. He reports he has been getting intermittence itchy bumps every day. Seems to be first thing in the morning. He reports he has tried the betamethasone. He tries to take the zyrtec BID and benadryl in the evening. He has been inconsistent with the zyrtec. We discussed increasing zyrtec to 40mg daily slowly for the hives. We also discussed re-evaluation and consideration of biopsy if continued issues. He reports the spots on the right and left leg are gone. documented in this encounter Plan of Treatment Upcoming Encounters Date Type Department Care Team (Late st Contact Info) Description 09/26/2024 10:30 AM EDT Office Visit Dermatology at [facility] [address] [place] [address] [facility] [address] documented as of this encounter Visit Diagnoses Not on filedocumented in this encounter Care Teams Map And Chart Mounter Relationship Specialty Start Date End Date Lambert Gates MD [address] [place] [address] PCP - General Internal Medicine 04/24/19 documented as of this encounter
--- OUTSIDE RECORDS SUMMARY | 2024-06-05 14:54 | XMS_ITS | Encounter Summary ---
Author Organization [facility] Address [facility] [place] [address] Care Team Providers Care Collar Runner Name Role Phone Lambert Gates MD Primary Care Provider [phone] Encounter Details Date Type Department Care Team (Late st Contact Info) Description 02/03/2021 11:20 AM EDT TH Visit (TeleHealth) Dermatology at [facility] [address] [place] [address] Brit Che MD [facility] [address]ATHRYN [place] [address] Nummular eczema; Id reaction Social History Tobacco Use Types Packs/Day Years [...] encounter Progress Notes * Brit Che - 02/03/2021 11:20 AM EDT Images from the original note were not included. DEPARTMENT OF DERMATOLOGY Medical Dermatology Clinic Provider: Brit Che MD Patient's preferred name Don Preferred contact [...] relevant family history N Social History Occupation: Hobbies: Other: Pre-Procedure Screening Details Allergy to lidocaine, epinephrine, Dermabond, chlorhexidine, or adhesives N Bleeding disorder or blood thinners N Implanted devices (Pacemaker, defibrillator, deep brain stimulator, cochlear implant) N History of Present Illness: Ced Singleton is a 60 y.o. Patient returns to clinic today for follow-up of rash. - Don notes improvement to the areas on the legs. He has been using augmented betamethasone. He also notes that he continues to get hive like lesions on the arms and trunk. He is taking zyrtec 10mg BID, no longer taking benadryl. Last visit at [facility] Derm: 01/29/2021 Last visit with this provider: 01/29/2021 Medications: Reviewed in eD-H Allergies: Reviewed in eD-H Skin Examination: TeleHealth examination: Skin exam not performed via telephone. Patient is aware that assessment maybe limited by the tele howie capabilities. Assessment/Plan #. Nummular Eczema with ID, impetigo is resolved - not visualized due to tele health capabilities - Reviewed etiology of this condition. Discussed the rash on the arms is likely an ID reaction - Reviewed treatment options -??TONEY previously negative for fungal elements (01/29/21) - Recommend??sensitive skin care:??Dove fragrance free bar soap (folds/feet only), Cerave??cream/Vanicream/Aveeno daily moisturizer within a few minutes of getting out of shower, lukewarm showers. - Start Rx Zyrtec (10mg): ??Take 1 tablet by mouth 4 times daily for 30 days - Start OTC Benadryl: take in the PM as needed for flares. - Continue Rx: augmented betamethasone 0.05% ointment - apply to the rash on the arms and legs twice daily x 2 weeks for flares. Take 1 week off and repeat as needed. - Start OTC Amlactin Rapid relief cream - Can consider biopsy in the future if rash is not improving or worsens Other: ??? N/A RTC: 6 - 8 weeks for follow-up of rash/hives/nummular eczema [x]Note routed to unit secretary []Recall placed in scheduling system []Appointment scheduled at checkout Scribe attestation: Sarah Gonzalez has performed the documentation for this encounter in the presence of and acting as a scribe for Brit Che MD. I performed the above scribed service and agree with the accuracy of the documentation in this encounter. Reviewed and signed by: Brit Che MD Dermatology [facility] staff contract negotiation specialist: Violeta Yates MD Dermatology [facility] * Violeta Yates MD - 02/03/2021 11:20 AM EDT I was the supervising physician working with dermatology resident Dr. Che in the dermatology clinic during this patient visit. The level of Resident supervision for this patient visit was indirectsupervision with direct supervision immediately available. (definition: [facility] Policy Statement on Graduate Medical Education, Supervision of Graduate Medical Trainees) I was immediately available to Dr. Che for questions and discussion regarding this visit. I have reviewed the encounter note details and level of service. VIOLETA YATES MD Staff Physician documented in this encounter Plan of Treatment Upcoming Encounters Date Type Department Care Team (Late st Contact Info) Description 09/26/2024 10:30 AM EDT Office Visit Dermatology at [facility] [address] [place] [address] Raquel Dirscoll MD [facility] [place] [address] documented as of this encounter Visit Diagnoses Diagnosis Nummular eczema Contact dermatitis and other eczema, due to unspecified cause Id reaction Contact dermatitis and other eczema due to other specified agent documented in this encounter Care Teams Collar Runner Relationship Specialty Start Date End Date Lambert Gates MD [address] [place] [address] PCP - General Internal Medicine 04/24/19 documented as of this encounter
--- OUTSIDE RECORDS SUMMARY | 2024-06-05 14:54 | XMS_ITS | Encounter Summary ---
Author Organization [facility] Address [facility] [place] [address] Care Team Providers Care Race Relations Adviser Name Role Phone Lambert Gates MD Primary Care Provider [phone] Encounter Details Date Type Department Care Team (Late st Contact Info) Description 09/10/2021 Telephone Dermatology at [facility] [address] [place] [address] Raquel Driscoll MD [facility] [place] [address] Social History Tobacco Use Types Packs/Day Years [...] * Telephone Encounter - Eliza Wei - 09/10/2021 9:50 AM EDT I received a phone call from Ced Singleton requesting a refill of his metroNIDAZOLE (METROGEL) 0.75 %Gel. He is booked for follow up with Dr. Driscoll early December. documented in this encounter Plan of Treatment Upcoming Encounters Date Type Department Care Team (Late Contact Info) Description 09/26/2024 10:30 AM EDT Office Visit Dermatology at [facility] [address] [place] [address] Raquel Driscoll MD [facility] [place] [address] documented as of this encounter Visit Diagnoses Not on filedocumented in this encounter Care Teams Race Relations Adviser Relationship Specialty Start Date End Date Lambert Gates MD [address] [place] [address] PCP - General Internal Medicine 04/24/19 documented as of this encounter
--- OUTSIDE RECORDS SUMMARY | 2024-06-05 14:54 | XMS_ITS | Encounter Summary ---
Author Organization [facility] Address [facility] [place] [address] Care Team Providers Care Inside Sales Manager Name Role Phone Lambert Gates MD Primary Care Provider Reason for Visit * Reason Comments Medication Refill Encounter Details Date Type Department Care Team (Late st Contact Info) Description 02/02/2023 Refill Dermatology at [facility] [address] [place] [address] Raquel Driscoll MD [facility] [place] [address] Nummular eczema Social History Tobacco Use Types [...] 10:30 AM EDT Office Visit Dermatology at [facility] [address] [place] [address] Raquel Driscoll MD [facility] [place] [address] documented as of this encounter Visit Diagnoses Diagnosis Nummular eczema Contact dermatitis and other eczema, due to unspecified cause documented in this encounter Care Teams Inside Sales Manager Relationship Specialty Start Date End Date Lambert Gates MD [address] [place] [address] PCP - General Internal Medicine 04/24/19 documented as of this encounter
--- OUTSIDE RECORDS SUMMARY | 2024-06-05 14:54 | XMS_ITS | Encounter Summary ---
Author Organization [facility] Address [facility] [place] [address] Care Team Providers Care Electro Mechanic Name Role Phone Lambert Gates MD Primary Care Provider [phone] Reason for Visit * Reason Comments Follow-up Encounter Details Date Type Department Care Team (Late st Contact Info) Description 12/10/2021 1:45 PM EDT Office Visit Dermatology at [facility] [address] [place] [address] Feliz Driscoll MD [facility] [place] [place] [address] Rosacea; Nummular eczema Social History Tobacco Use Types [...] Progress Notes * Feliz Driscoll MD - 12/10/2021 1:45 PM EDT Images from the original note were not included. DEPARTMENT OF DERMATOLOGY Medical Dermatology Clinic Provider: FELIZ DRISCOLL MD Patient's preferred name Don Preferred contact method for results [x]?Phone []?myD-H []?Letter Detailed phone message OK? Y Are there any other people with whom we may discuss your care? , Shahla ?? Past Medical History Date, location, treatment Melanoma N Dysplastic nevi N SCC N BCC N AKs LN2 UV Exposure & Protection N Other relevant past medical history 08/08/2020: left lower lid lesion, SK (biopsy by Dr. Doran) Rosacea Family History Details Melanoma N NMSC N Other relevant family history N Social History Occupation: works for [employer] insurance Other: ?? Pre-Procedure Screening Details Allergy to lidocaine, epinephrine, Dermabond, chlorhexidine, or adhesives N Bleeding disorder or blood thinners N Implanted devices (Pacemaker, defibrillator, deep brain stimulator, cochlear implant) N History of Present Illness: Ced Singleton is a 61 y.o. Patient returns to clinic today for a follow up of nummular eczema. - Patient reports that he his skin has been doing well and he does not have any flaring areas of eczema today. He has betamethasone at home, which he uses as needed. - He also has metronidazole gel, which he has been using for rosacea daily. Last visit at Dermatology: 07/10/2021 Last visit with this provider: 07/10/2021 Medications: Reviewed in eD-H Allergies: Reviewed in eD-H Skin Examination: Focused skin examination of the face and left lower extremity was normal with the exception of the findings below. Assessment/Plan A. Rosacea - Diffuse erythema and dilated telangiectasias on the central face.. - Continue Rx: metronidazole (Metrogel) 0.75% gel: Apply topically to the affected areas of rosaceaon the face twice daily after washing. B. Nummular Eczema - Post inflammatory hyperpigmentation on the left lower extremity. - Continue using sensitive skin care and moisturizing daily. - Continue Rx augmented betamethasone 0.05% ointment: Apply topically to affected area(s) on the trunk and extremities twice daily as needed for up to 2 weeks at a time for flares. - not currently requiring -Reccomend daily moisturizer ex: CereVe Other: ??? OTC skin products discussed RTC: FSE in July 2022 []Note routed to legal secretary []Recall placed in scheduling system [x]Appointment scheduled at checkout Scribe attestation: Shruthi Waite and Brit Hanna CMA have performed the documentation for this encounter in the presence of and acting as a scribe for FELIZ DRISCOLL MD. I performed the above scribed service and agree with the accuracy of the documentation in this encounter. Reviewed and signed by: FELIZ DRISCOLL MD Dermatology [facility] documented in this encounter Plan of Treatment Upcoming Encounters Date Type Department Care Team (Late st Contact Info) Description 09/26/2024 10:30 AM EDT Office Visit Dermatology at [address] [address] Feliz Driscoll MD [facility] [place] [address] documented as of this encounter Visit Diagnoses Diagnosis Rosacea Nummular eczema Contact dermatitis and other eczema, due to unspecified cause documented in this encounter Care Teams Electro Mechanic Relationship Specialty Start Date End Date Lambert Gates MD [address] [place] [address] PCP - General Internal Medicine 04/24/19 documented as of this encounter
--- OUTSIDE RECORDS SUMMARY | 2024-06-05 14:54 | XMS_ITS | Encounter Summary ---
Author Organization [facility] Address [facility] [place] [address] Care Team Providers Care Dip Tube Assembler Machine Name Role Phone Lambert Gates MD Primary Care Provider [phone] Reason for Visit * Reason Comments Lid Lesion * Consultation (Routine) - Closed Specialty Diagnoses / Procedures Referred By Annamaria davis Referred To Contact Ophthalmology Diagnoses Neoplasm of uncertain behavior Raquel Driscoll MD [facility] [place] [address] Rosibel Doran MD [facility] [place] [address] Referral ID Status Reason Start Date Expiration Date V isits Requested Visits Authorized [id number] Closed Consult, Test & Treat 05/16/2020 05/16/2021 1 1 Encounter Details Date Type Department Care Team (Late st Contact Info) Description 08/08/2020 10:45 AM EDT Office Visit Ophthalmology at [place] [phone] Rosibel Doran MD Lesion of left lower eyelid Social History Tobacco Use Types Packs/Day Years Used Date Smoking Tobacco: Never Smokeless Tobacco: Never Alcohol Use Standard Drinks/Week Comments Not Currently 0 (1 standard drink = 0.6 oz pur e alcohol) Sex and Gender Information Value Date Recorded Sex Assigned at Not on file Gender Identity Not on file Sexual Orientation Not on file documented as of this encounter Progress Notes * Rosibel Doran MD - 08/08/2020 10:45 AM EDT Images from the original note were not included. Encounter Diagnosis Name Primary? Lesion of left lower eyelid Ced Singleton, a 59 y.o. male with the following problem(s): 1. Lid lesion, LLL: changing in appearance, recommend biopsy. - Discussed risks, benefits, and alternatives including bleeding, infection, recurrence, and need for additional surgery. - Findings and concerns discussed with Ced and he expressed understanding. FOLLOW UP - same day MSO Photo(s) taken by Rosibel Doran MD with patient's verbal permission for use for clinical and education purposes documented in this encounter Plan of Treatment Upcoming Encounters Date Type Department Care Team (Late st Contact Info) Description 09/26/2024 10:30 AM EDT Office Visit Dermatology at [facility] [address] [place] [address] Raquel Driscoll MD [facility] [place] [place] [address] documented as of this encounter Procedures Procedure Name Priority Date/Time Associated Diagnosis Comments EXTERNAL PHOTOGRAPHY - OS - LEFT EYE Routine 08/08/2020 10:51 AM EDT Lesion of left lower eyelid documented in this encounter Results * External Photography - OS - Left Eye (08/08/2020 10:51 AM EDT) Anatomical Region Laterality Modality Other Narrative 08/08/2020 10:51 AM EDT Findings include eyelid lesion/mass. Rosibel Doran MD OPHTHALMOLOGY SERVIC ES ORDERABLES documented in this encounter Visit Diagnoses Diagnosis Lesion of left lower eyelid documented in this encounter Care Teams Dip Tube Assembler Machine Relationship Specialty Start Date End Date Lambert Gates MD [address] [place] [address] PCP - General Internal Medicine 04/24/19 documented as of this encounter
--- OUTSIDE RECORDS SUMMARY | 2024-06-05 14:54 | XMS_ITS | Encounter Summary ---
Author Organization [facility] Address [facility] [place] [address] Care Team Providers Care Field Crop Farmworker Name Role Phone Lambert Gates MD Primary Care Provider [phone] Reason for Visit * Reason Onset Date Comments Eye Problem 08/12/2020 Concerns for swe lling s/p Lid lesion biopsy Encounter Details Date Type Department Care Team (Late st Contact Info) Description 08/12/2020 [place] [address] Rosibel Doran MD Eye Problem (Concerns for swelling s/p Lid lesion biopsy) Social History Tobacco Use Types Packs/Day Years [...] encounter Miscellaneous Notes * Telephone Encounter - Rosibel Doran MD - 08/15/2020 2:55 PM EDT The lesion that I biopsied showed: DIAGNOSIS Left lower lid lesion, skin shave biopsy: - ??Seborrheic keratosis This lesion is benign and no further treatment is required. I called Ced to discuss the results. I left a message. * Telephone Encounter - Danyelle Caballero COT - 08/12/2020 2:45 PM EDT Patient reports a red/mildly swollen area LLL about the size of 1/2 dime. Denies any discharge and not painful. The appearance such if there was a stye. Recommended he stop the Emycin binu, can sometimes cause allergic reaction. Reassured, will monitor next 1-2 days and call if worsens/does not improve for JR follow up if needed. * Telephone Encounter - Danyelle Caballero COT - 08/12/2020 2:07 PM EDT Patient concerned about swelling/redness s/p lid lesion biopsy LLL on 08/08 Rosibel Doran MD at 08/08/2020 10:45 AM Author Type: Physician Status: Signed Qc Manager: Rosibel Doran MD (Physician) Encounter Diagnosis Name Primary? Lesion of left lower eyelid ? Ced Viviane Singleton, a 59 y.o. male with the following problem(s): ?? 1. Lid lesion, LLL: changing in appearance, recommend biopsy. - Discussed risks, benefits, and alternatives including bleeding, infection, recurrence, and need for additional surgery. - Findings and concerns discussed with Ced and he expressed understanding. ?? FOLLOW UP - same day MSO documented in this encounter Plan of Treatment Upcoming Encounters Date Type Department Care Team (Late st Contact Info) Description 09/26/2024 10:30 AM EDT Office Visit Dermatology at [facility] [address] [place] [address] Raquel Driscoll MD [facility] [place] [address] documented as of this encounter Visit Diagnoses Not on filedocumented in this encounter Care Teams Field Crop Farmworker Relationship Specialty Start Date End Date Lambert Gates MD [address] [place] [address] PCP - General Internal Medicine 04/24/19 documented as of this encounter
--- OUTSIDE RECORDS SUMMARY | 2024-06-05 14:54 | XMS_ITS | Encounter Summary ---
Author Organization [facility] Address [facility] [place] [address] Care Team Providers Care Foundry Melt Supervisor Name Role Phone Lambert Gates MD Primary Care Provider [phone] Encounter Details Date Type Department Care Team (Late st Contact Info) Description 01/15/2021 Telephone Dermatology at [facility] [address] [place] [address] Raquel Driscoll MD [facility] [place] [address] Social History Tobacco Use Types Packs/Day Years [...] encounter Miscellaneous Notes * Telephone Encounter - Mya Spencer - 01/15/2021 3:38 PM EDT Patient called and would like a refill on:ketoconazole (NIZORAL) 2 % Cream [[id number]] . Thanks Mya documented in this encounter Plan of Treatment Upcoming Encounters Date Type Department Care Team (Late st Contact Info) Description 09/26/2024 10:30 AM EDT Office Visit Dermatology at [address] [place] [address] Raquel Driscoll MD [facility] [place] [address] documented as of this encounter Visit Diagnoses Not on filedocumented in this encounter Care Teams Foundry Melt Supervisor Relationship Specialty Start Date End Date Lambert Gates MD [address] [place] [address] PCP - General Internal Medicine 04/24/19 documented as of this encounter
--- OUTSIDE RECORDS SUMMARY | 2024-06-05 14:54 | XMS_ITS | Encounter Summary ---
Author Organization [facility] Address [facility] [place] [address] Care Team Providers Care Phy Therapist Name Role Phone Lambert Gates MD Primary Care Provider [phone] Encounter Details Date Type Department Care Team (Late Contact Info) Description 11/16/2022 Telephone Dermatology at [facility] [address] [place] [address] Raquel Driscoll MD [facility] [place] [address] Social History Tobacco Use Types Packs/Day Years [...] * Telephone Encounter - Eliza Wei - 11/16/2022 12:01 PM EDT I received a phone call from Ced Singleton requesting a refill of hisketoconazole (Nizoral) 2 % Cream. He was last seen July 2022. I told him I would send a note to the team. documented in this encounter Plan of Treatment Upcoming Encounters Date Type Department Care Team (Late st Contact Info) Description 09/26/2024 10:30 AM EDT Office Visit Dermatology at [facility] [address] [place] [address] Raquel Driscoll MD [facility] [place] [address] documented as of this encounter Visit Diagnoses Not on filedocumented in this encounter Care Teams Phy Therapist Relationship Specialty Start Date End Date Lambert Gates MD [address] [place] [address] PCP - General Internal Medicine 04/24/19 documented as of this encounter
--- OUTSIDE RECORDS SUMMARY | 2024-06-05 14:54 | XMS_ITS | Encounter Summary ---
Author Organization [facility] Address [facility] [place] [address] Care Team Providers Care Cloud Infrastructure Architect Name Role Phone Lambert Gates MD Primary Care Provider [phone] Reason for Visit * Reason Comments Skin Lesion Encounter Details Date Type Department Care Team (Late st Contact Info) Description 01/20/2021 10:00 AM EDT Office Visit Dermatology at [facility] [address] [place] [address] Brit Che MD [facility] [place] [address] Impetigo; Idiopathic urticaria Social History Tobacco Use Types Packs/Day Years [...] encounter Progress Notes * Brit Che - 01/20/2021 10:00 AM EDT Images from the original note [...] Patient returns to clinic today for a concerning circular plaque on the left calf that has been present ~1 week. He notes that it oozes and he hasbeen using ketoconazole 2% with no improvement. He reports that it has gotten larger over the last week. Denies pain or pruritus. Last visit at [facility] Derm: 10/24/2020 Last visit with this provider: Visit date not found Medications: Reviewed in eD-H Allergies: Reviewed in eD-H Skin Examination: Focused skin examination of the left lower leg was normal with the exception of the findings below. Assessment/Plan #. Impetigo complicated by diffuse urticaria- yellow [...] BID and benadryl at night for urticaria Photo(s) taken and charted with patient's verbal consent. Other: ??? N/A RTC: 2 weeks for impetigo f/u []Note routed to executive legal secretary []Recall placed in scheduling system [x]Appointment scheduled at checkout Scribe attestation: GILBERT Frye has performed the documentation for this encounter in the presence of and acting as a scribe for Brit Che MD. I performed the above scribed service and agree with the accuracy of the documentation in this encounter. Reviewed and signed by: Brit Che MD Dermatology [facility] Patient seen and evaluated with staff bed rubber: Violeta Russell. MD [facility]aja Dermatology [facility] * Violeta Yates MD - 01/20/2021 10:00 AM EDT I directly supervised Dr. Che during this office visit. Dr. Che presented the history and physical exam to me. I then saw and examined this patient with Dr. Che . We reviewed the history andpertinent details and I confirmed the physical findings. I agree with the details of the history and physical exam as documented in Dr. Ches note. VIOLETA YATES MD Staff Physician * Brit Che - 01/20/2021 10:00 AM EDT DERMATOLOGY TELEPHONE NOTE Ced Singleton 01/23/2021 [id number] Reason for call: Discuss lab results I called the patient this morning to discuss the results of his recent lab: Staphylococcus pseudintermedius We discussed starting Doxycycline 100mg fransisco daily - Counseled: risks of doxycycline including but not limited to nausea, photosensitivity as well as bacteria resistance. Recommend taking with a full stomach after a meal, with a glass of water and donot lay down for 30min after taking, avoid calcium, magnesium or multivitamin supplements while taking the medication Brit Che MD Dermatology Resident documented in this encounter Miscellaneous Notes * Addendum Note - Violeta Yates MD - 01/20/2021 10:00 AM EDTAddended by: VIOLETA YATES on: 01/22/2021 02:54 PM Modules accepted: Level of Service documented in this encounter Plan of Treatment Upcoming Encounters Date Type Department Care Team (Late st Contact Info) Description 09/26/2024 10:30 AM EDT Office Visit Dermatology at [facility] [address] [place] [address] Raquel Driscoll MD [facility] [place] [address] documented as of this encounter Procedures Procedure Name Priority Date/Time Associated Diagnosis Comments HC GRAM STAIN FOR BACTERIA Routine 01/20/2021 11:45 AM EDT Impetigo documented in this encounter Results * (ABNORMAL) Skin/Superficial Wound Culture Calf, Left (01/20/2021 11:45 AM EDT) Skin/Superfic ial Wound Culture Moderate Staphylococcus pseudintermedius( A) [facility] Gram Stain No Neutrophils seen. Rare Gram Positive Cocci seen (A) [facility] Organism Staphylococcus pseudintermedius( A) [facility] Organism Gram Positive Cocci(A) [facility] Superficial Wound STRUCTURE OF CALF OF LEFT LOWER LEG / Unknown 01/20/2021 11:45 AM EDT 01/20/2021 1:14 PM EDT Narrative Resulting Agency Comment Spec In Lab Organism Antibiotic Method Susceptibility Staphylococcus pseudintermedius Ciprofloxacin VITEK 2 METHOD Sensitive Staphylococcus pseudintermedius Clindamycin VITEK 2 METHOD Sensitive Staphylococcus pseudintermedius Erythromycin VITEK 2 METHOD Sensitive Staphylococcus pseudintermedius Gentamicin VITEK 2 METHOD Sensitive Comment:Gentamicin i s not appropriate for Pratt-therapy. Staphylococcus pseudintermedius Levofloxacin VITEK 2 METHOD Sensitive Staphylococcus pseudintermedius Oxacillin VITEK 2 METHOD Sensitive Comment: Oxacillin (methicillin) susceptibility is a surrogate for the oral and parenteral cephalosporins, beta-lactam combination agents (amoxicillin-clavulanate, ampicillin-sulbactam and piperacillin-tazobactam) and carbapenem agents. ??It is NOT a surrogate for penicillin, ampicillin or piperacillin susceptibility. Staphylococcus pseudintermedius Trimethoprim/Sulfa VITEK 2 METHOD Sensitive Staphylococcus pseudintermedius Tetracycline VITEK 2 METHOD Sensitive Staphylococcus pseudintermedius Vancomycin VITEK 2 METHOD Sensitive Violeta Yates MD MICROBIOLOGY - [place] [address] documented in this encounter Visit Diagnoses Diagnosis Impetigo Idiopathic urticaria documented in this encounter Care Teams Cloud Infrastructure Architect Relationship Specialty Start Date End Date Lambert Gates MD [address] [place] [address] PCP - General Internal Medicine 04/24/19 documented as of this encounter
--- OUTSIDE RECORDS SUMMARY | 2024-06-05 14:54 | XMS_ITS | Encounter Summary ---
Author Organization [facility] Address [facility] [place] [address] Care Team Providers Care Tin Roller Hot Mill Name Role Phone Lambert Gates MD Primary Care Provider [phone] Encounter Details Date Type Department Care Team (Late st Contact Info) Description 08/05/[address] [facility] [address] [place] [address] Raquel Driscoll MD [facility] [place] [address] Nummular eczema Social History Tobacco Use Types [...] Telephone Encounter - Kina Velasquez LPN - 08/06/2022 1:12 PM EDT Medication(s) requested to refill diprolene Last visit: 07/14/22 Follow up recommended one year F/U Scheduled: pending Assessment/Plan for this/these medications: eczema Appropriate to refill: yes Special Considerations: original order went to wrong pharmacy Order/orders pended and routed to Dr. Driscoll for review and approval * Telephone Encounter - Tiera Singleton - 08/05/2022 9:14 AM EDT I just received a call from Ced Singleton That he needs a prescription sent to [facility] for ?? Medication augmented betamethasone dipropionate (Diprolene-AF) 0.05 % Ointment [[id number]] documented in this encounter Plan of Treatment Upcoming Encounters Date Type Department Care Team (Late st Contact Info) Description 09/26/2024 10:30 AM EDT Office Visit Dermatology at [facility] [address] [place] [address] Raquel Driscoll MD [facility] [place] [address] documented as of this encounter Visit Diagnoses Diagnosis Nummular eczema Contact dermatitis and other eczema, due to unspecified cause documented in this encounter Care Teams Tin Roller Hot Mill Relationship Specialty Start Date End Date Lambert Gates MD [address] [place] [address] PCP - General Internal Medicine 04/24/19 documented as of this encounter
--- OUTSIDE RECORDS SUMMARY | 2024-06-05 14:54 | XMS_ITS | Encounter Summary ---
Author Organization [facility] Address [facility] [place] [address] Care Team Providers Care Administrative Office Specialist Name Role Phone Lambert Gates MD Primary Care Provider [phone] Reason for Visit * Reason Comments Skin Check Encounter Details Date Type Department Care Team (Late st Contact Info) Description 07/14/2022 8:30 AM EST Office Visit Dermatology at [facility] [address] [place] [address] Feliz Driscoll MD [facility] [place] [address] Seborrheic dermatitis; Seborrheic keratoses; Nummular eczema; Multiple benign melanocytic nevi of upper and lower extremities and trunk; Lentigines Social History Tobacco Use Types Packs/Day Years [...] Progress Notes * Feliz Driscoll MD - 07/14/2022 8:30 AM EST Images from the original note [...] relevant family history No Social History 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 Pre-Procedure Questions Details Allergy to lidocaine, epinephrine, Dermabond, chlorhexidine, or adhesives No Bleeding disorder or blood thinners No Pacemaker, defibrillator, deep brain stimulator, cochlear implant No History of Present Illness: Ced Singleton is a 61 y.o. Patient returns to clinic today for a full skin exam with the following concerns: - Ced states that he will occasionally experience flares of his eczema, but they are quickly rescued with application of Rx: Augmented Betamethasone 0.05% Ointment. He estimates that he uses it as a spot treatment once weekly to great effect. He moisturizes with CeraVe after showers. - He notes that he will occasionally get festering lesions on his face, which are resolved with use of Rx: Ketoconazole 2% Cream. Ced would like to have this refilled today. He has wondered if he should be using a cleanser in the shower. He currently uses CeraVe for sensitive skin body wash on the body and plain water for his face. - He denies any tender, bleeding, or rapidly growing lesions. Last visit at Dermatology: 12/10/2021 Last visit with this provider: 12/10/2021 Medications: Reviewed in eD-H Allergies: Reviewed in [...] with the exception ofthe findings below. Assessment/Plan 1. Seborrheic Dermatitis - Clear on exam today. - Recommended using a conservative amount of CeraVe body wash as a facial cleanser; if this is too drying, may use CeraVe Gentle Cleanser instead. - Refill Rx: Ketoconazole 2% Cream. Apply twice daily to affected areas of face as needed. 2. Seborrheic Keratoses - Stuck on, waxy papules on the trunk and extremities. - Benign. No treatment needed. 3. Benign Nevi - Scattered light to medium brown macules on the trunk and extremities with reassuring pigment pattern on dermoscopy. - Reassured of benign appearance on exam today. 4. Lentigines - Scattered, light-brown, evenly pigmented, well-demarcated macules on sun-exposed areas of the trunk and extremities. - No worrisome pigmented lesions. Discussed benign nature of lesions and provided reassurance. Willcontinue to monitor. 5. Nummular Eczema - Plaque on the left welch. - Continue sensitive skin care and daily application of bland emollient. - Continue to apply Rx: Augmented Betamethasone 0.05% Ointment topically to affected areas twice daily as needed for up to 2 weeks at a time when flaring. Other: ??? OTC skin products discussed RTC: 1 year for FSE []Note routed to pathology secretary [x]Recall placed in scheduling system []Appointment scheduled at checkout Scribe attestation: GILBERT Merlos has performed the documentation for this encounter in the presence of and acting as a scribe for FELIZ DRISCOLL MD. I performed the above scribed service and agree with the accuracy of the documentation in this encounter. Reviewed and signed by: FELIZ DRISCOLL MD Dermatology [facility] documented in this encounter Plan of Treatment Upcoming Encounters Date Type Department Care Team (Late st Contact Info) Description 09/26/2024 10:30 AM EDT Office Visit Dermatology at [facility] [address] [place] [address] Feliz Driscoll MD [facility] [place] [address] documented as of this encounter Visit Diagnoses Diagnosis Seborrheic dermatitis Seborrheic dermatitis, unspecified Seborrheic keratoses Nummular eczema Contact dermatitis and other eczema, due to unspecified cause Multiple benign melanocytic nevi of upper and lower extremities and trunk Lentigines Other dyschromia documented in this encounter Care Teams Administrative Office Specialist Relationship Specialty Start Date End Date Lambert Gates MD [address] [place] [address] PCP - General Internal Medicine 04/24/19 documented as of this encounter
--- OUTSIDE RECORDS SUMMARY | 2024-06-05 14:54 | XMS_ITS | Encounter Summary ---
Author Organization [facility] Address [facility] [place] [address] Care Team Providers Care Count Team Member Name Role Phone Lambert Gates MD Primary Care Provider [phone] Encounter Details Date Type Department Care Team (Late Contact Info) Description 01/27/2021 Telephone Dermatology at [facility] [address] [place] [address] Brit Che MD [facility] DR KATHR[place] [address] Social History Tobacco Use Types Packs/Day Years [...] encounter Miscellaneous Notes * Telephone Encounter - Danyelle Baker - 01/27/2021 9:34 AM EDT Ced Singleton called to request a refill for the mupirocin (Bactroban) 2 % Ointment. Please send to the [facility] in [place], [place] Best number to reach the patient back is [phone]. documented in this encounter Plan of Treatment Upcoming Encounters Date Type Department Care Team (Late st Contact Info) Description 09/26/2024 10:30 AM EDT Office Visit Dermatology at [address] [place] [address] Raquel Driscoll MD [facility] [place] [address] documented as of this encounter Visit Diagnoses Not on filedocumented in this encounter Care Teams Count Team Member Relationship Specialty Start Date End Date Lambert Gates MD [address] [place] [address] PCP - General Internal Medicine 04/24/19 documented as of this encounter
--- OUTSIDE RECORDS SUMMARY | 2024-06-05 14:54 | XMS_ITS | Encounter Summary ---
Author Organization [facility] Address [facility] [place] [address] Care Team Providers Care Turning Machine Operator Name Role Phone Lambert Gates MD Primary Care Provider [phone] Reason for Visit * Reason Onset Date Comments Appointment 12/09/2021 Encounter Details Date Type Department Care Team (Late st Contact Info) Description 12/09/2021 Telephone Dermatology at [facility] [address] [place] [address] Raquel Driscoll MD [facility] [place] [address] Appointment Social History Tobacco Use Types Packs/Day Years [...] encounter Miscellaneous Notes * Telephone Encounter - GhadasommerStefania - 12/09/2021 12:20 PM EDT Message: Patient calling today regarding tomorrows FUV appt. Patient is wondering if provider has anything earlier in the day. Please return call to patient's cell phone Ask caller their first and last name and relationship to the patient: Ced Pan Mani Best time to call back: any Ok to leave a message: yes Ok to send - message: Offered Appointment: MA/Nurse/Finger contacted via: Message: y Call: n Pager: n documented in this encounter Plan of Treatment Upcoming Encounters Date Type Department Care Team (Late st Contact Info) Description 09/26/2024 10:30 AM EDT Office Visit Dermatology at [facility] [address] [place] [address] Raquel Driscoll MD [facility] [place] [address] documented as of this encounter Visit Diagnoses Not on filedocumented in this encounter Care Teams Turning Machine Operator Relationship Specialty Start Date End Date Lambert Gates MD [address] [place] [address] PCP - General Internal Medicine 04/24/19 documented as of this encounter
--- OUTSIDE RECORDS SUMMARY | 2024-06-05 14:54 | XMS_ITS | Encounter Summary ---
Author Organization [facility] Address [facility] [place] [address] Care Team Providers Care Poultry Vaccinator Name Role Phone Lambert Gates MD Primary Care Provider [phone] Encounter Details Date Type Department Care Team (Late st Contact Info) Description 02/24/[address] [facility] [address] [place] [address] Brit Che MD [facility] [address] [address] Social History Tobacco Use Types Packs/Day Years [...] Telephone Encounter - Denice Donis LPN - 02/24/2021 1:26 PM EDTSummary: itching Spoke with patient regarding his rash and the itching with it. He has used the areas of Eczema and it cleared it right up. He will awaken around 4 am to severely itching hands,feet , and arms. He will then get the hives and he uses the Betamethasone. He is getting hives daily. Message sent to Dr. Che for a plan. * Telephone Encounter - Danyelle Baker - 02/24/2021 10:05 AM EDT Ced Singleton called to speak with you about his rash, as it is spreading and wants to know if there is another medication option for this? Don is really uncomfortable, please reach out to him at [phone]. documented in this encounter Plan of Treatment Upcoming Encounters Date Type Department Care Team (Late st Contact Info) Description 09/26/2024 10:30 AM EDT Office Visit Dermatology at [facility] [address] [place] [address] Raquel Driscoll MD [facility] [place] [address] documented as of this encounter Visit Diagnoses Not on filedocumented in this encounter Care Teams Poultry Vaccinator Relationship Specialty Start Date End Date Lambert Gates MD [address] [place] [address] PCP - General Internal Medicine 04/24/19 documented as of this encounter
--- OUTSIDE RECORDS SUMMARY | 2024-06-05 14:54 | XMS_ITS | Encounter Summary ---
Author Organization [facility] Address [facility] [place] [address] Care Team Providers Care Greenkeeper Name Role Phone Lambert Gates MD Primary Care Provider Encounter Details Date Type Department Care Team (Late st Contact Info) Description 01/23/2021 Orders Only Dermatology at [facility] [address] [place] [address] Brit Che MD [facility] DR KATHRYN [place] [address] Social History Tobacco Use Types Packs/Day Years [...] 10:30 AM EDT Office Visit Dermatology at [facility] [address] [place] [address] Raquel Driscoll MD [facility] [place] [address] documented as of this encounter Visit Diagnoses Not on filedocumented in this encounter Care Teams Greenkeeper Relationship Specialty Start Date End Date Lambert Gates MD [address] [place] [address] PCP - General Internal Medicine 04/24/19 documented as of this encounter
--- OUTSIDE RECORDS SUMMARY | 2024-06-05 14:54 | XMS_ITS | Encounter Summary ---
Author Organization [facility] [place] [address] Care Team Providers Care Internet Application Developer Name Role Phone Lambert Gates MD Primary Care Provider [phone] Reason for Visit * Reason Onset Date Comments Procedure 08/08/2020 Encounter Details Date Type Department Care Team (Late st Contact Info) Description 08/08/2020 11:45 AM EDT Procedure [place] [address] Rosibel Doran MD Lesion of eyelid Social History Tobacco Use Types Packs/Day [...] this encounter Patient Instructions * Patient Instructions* Rosibel Doran MD - 08/08/2020 11:45 AM EDT - Use erythromycin ointment 3x/day to the left eyelid incision for 3 days. This may blur your vision slightly. - There are no activity restrictions. - Please call HALI for worsening eyelid redness, pain, discharge. - I will call you with the pathology results. documented in this encounter Progress Notes * Rosibel Doran MD - 08/08/2020 11:45 AM EDT Please see procedure note for details. Rosibel Doran MD documented in this encounter Plan of Treatment Upcoming Encounters Date Type Department Care Team (Late st Contact Info) Description 09/26/2024 10:30 AM EDT Office Visit Dermatology at [facility] [address] [place] [address] Raquel Driscoll MD [facility] [place] [address] documented as of this encounter Procedures Procedure Name Priority Date/Time Associated Diagnosis Comments SURGICAL PATHOLOGY REPORT Routine 08/08/2020 11:03 AM EDT BIOPSY LID LESION - OS - LEFT EYE Routine 08/08/2020 10:54 AM EDT Lesion of eyelid SPECIMEN TO PATHOLOGY Routine 08/08/2020 10:54 AM EDT Lesion of eyelid documented in this encounter Results * Surgical Pathology Report (08/08/2020 11:03 AM EDT) Final Diagnosis [id number] ? Location: The signing pathologist has (i) examined the relevant preparation(s) for the specimen(s) and (ii) rendered or confirmed the diagnosis(es). . ?Surgical Pathology DIAGNOSIS Left lower lid lesion, skin shave biopsy: - ??Seborrheic keratosis Electronically signed by: ?Alejandro MEDINA, Norman Marquez Verified: ??08/14/2020 11:59 ??Dermatopatholo gist, Bone & Soft Tissue Pathologist Performed at: ??-[facility] [place] Dept. of Pathology, [place], [place] SPECIMEN(S) SUBMITTED A - left lower lid lesion, biopsy (1) CLINICAL INFORMATION Left lower lid pigmented lesion, recently changing in appearance SPECIMEN PROCESSING A - Labeled/Fixative : L lid lesion, formalin. Quantity/Size: ??Single, 0.4 x 0.3 x 0.1 cm. Tissue Description: Shave of irregular brown macule. Sections/Process ing: Inked, bisected and entirely submitted in 1 cassette labeled A1. ??aparna 08/14/2020 11:59 AM EDT [facility] SPECIMEN FROM SKIN / Unknown 08/08/2020 11:03 AM EDT 08/08/2020 11:03 AM EDT Rosibel Doran MD PATHOLOGY/CYTOLOGY O RDERABLES [facility] [place] [address] * Biopsy Lid Lesion - OS - Left Eye (08/08/2020 10:54 AM EDT) Anatomical Region Laterality Modality Other Narrative 08/08/2020 10:54 AM EDT Pre-Op Patient understands the risks and benefits of the treatment as outlined on the consent. Anesthesia Anesthetic medications included Lidocaine 2%. Post-op The patient tolerated the procedure well. There were no complications. The patient received written and verbal post procedure care education. Notes Pre op diagnosis: Lid lesion, left lower eyelid Postop diagnosis: same Procedure: Excisional biopsy of lid lesion, left lower eyelid Anesthesia: local Surgeon: Rosibel Doran MD Specimen: lid lesion Indications for procedure: Don presented with a left lower eyelid lesion that was changing in appearance. ??Surgery was recommended for diagnostic purposes and not for cosmetic reasons. Description of procedure: Indications, risks, benefits, and alternatives of the procedure were reviewed with Don and informed consent was signed. ?? A time out was performed. ??Then 2% lidocaine + epi was injected underneath the lesion. Good analgesia was achieved. The lesion was grasped with toothed forceps and a portion excised with Daren scissors, and then passed off as a specimen. Hemostasis was achieved with gentle pressure and high temp cautery. The patient tolerated the procedure well and was discharged in stable condition. Post op instructions: - Erythromycin ointment 3x/day to the left eyelid incision for 3 days. ?? - No activity restrictions. ?? - Call if worsening eyelid redness, pain, discharge - Don expressed understanding. Rosibel Doran MD OPHTHALMOLOGY SERVIC ES ORDERABLES * Specimen to Pathology (08/08/2020 10:54 AM EDT) AP Specimen 08/08/2020 10:5 4 AM EDT 08/08/2020 10:54 AM EDT Narrative [facility] - 08/08/2020 10:54 AM EDT Specimen requisition ordered. ??Separate Pathology report to follow Rosibel Doran MD PATHOLOGY/CYTOLOGY O RDERABLES [facility] [place] [address] documented in this encounter Visit Diagnoses Diagnosis Lesion of eyelid Unspecified disorder of eyelid documented in this encounter Care Teams Internet Application Developer Relationship Specialty Start Date End Date Lambert Gates MD [address] [place] [address] PCP - General Internal Medicine 04/24/19 documented as of this encounter
--- OUTSIDE RECORDS SUMMARY | 2024-06-05 14:54 | XMS_ITS | Encounter Summary ---
Author Organization [facility] Address [facility] [place] [address] Care Team Providers Care Lumber Driver Name Role Phone Lambert Gates MD Primary Care Provider [phone] Reason for Visit * Reason Onset Date Comments Medication Refill 09/10/2021 Encounter Details Date Type Department Care Team (Late st Contact Info) Description 09/10/2021 Refill Dermatology at [facility] [address] [place] [address] Raquel Driscoll MD [facility] [place] [address] Rosacea Social History Tobacco Use Types Packs/Day [...] Telephone Encounter - Kina Velasquez LPN - 09/10/2021 2:03 PM EDT Order for metrogel pended to Dr. Driscoll at her request for patient for review and approval documented in this encounter Plan of Treatment Upcoming Encounters Date Type Department Care Team (Late st Contact Info) Description 09/26/2024 10:30 AM EDT Office Visit Dermatology at [facility] [address] [place] [address] Raquel Driscoll MD [facility] [place] [address] documented as of this encounter Visit Diagnoses Diagnosis Rosacea documented in this encounter Care Teams Lumber Driver Relationship Specialty Start Date End Date Lambert Gates MD [address] [place] [address] PCP - General Internal Medicine 04/24/19 documented as of this encounter
--- OUTSIDE RECORDS SUMMARY | 2024-06-05 14:54 | XMS_ITS | Encounter Summary ---
Author Organization [facility] Address [facility] [place] [address] Care Team Providers Care Plant Superintendent Name Role Phone Lambert Gates MD Primary Care Provider [phone] Encounter Details Date Type Department Care Team (Late st Contact Info) Description 12/24/2020 Refill Dermatology at [facility] [address] [place] [address] Raquel Driscoll MD [facility] [place] [address] Rosacea Social History Tobacco Use Types Packs/Day [...] Telephone Encounter - Kina Velasquez LPN - 12/24/2020 9:58 AM EDT Medication(s) requested to refill metrogel Last visit: 10/24/20 Follow up recommended May F/U Scheduled: pending Assessment/Plan for this/these medications: Rosacea Appropriate to refill: yes Special Considerations: none Order/orders pended and routed to Dr. Driscoll for review and approval * Telephone Encounter - Neha Herrera - 12/24/2020 8:52 AM EDT Patient Ced Singleton called requesting a refill script for metroNIDAZOLE (METROGEL) 0.75 % Gel to besent to the [facility] in [place], [place]. Thank you, Niki documented in this encounter Plan of Treatment Upcoming Encounters Date Type Department Care Team (Late st Contact Info) Description 09/26/2024 10:30 AM EDT Office Visit Dermatology at [place] [address] [place] [address] Raquel Driscoll MD [facility] [place] [address] documented as of this encounter Visit Diagnoses Diagnosis Rosacea documented in this encounter Care Teams Plant Superintendent Relationship Specialty Start Date End Date Lambert Gates MD [address] [place] [address] PCP - General Internal Medicine 04/24/19 documented as of this encounter
--- OUTSIDE RECORDS SUMMARY | 2024-06-05 14:55 | XMS_ITS | Encounter Summary ---
Author Organization [facility] Address [address] [place] [address] Care Team Providers Care Agriscience Technology Instructor Name Role Phone Unknown, Provider Primary Care Provider Unava ilable Encounter Details Date Type Department Care Team (Late st Contact Info) Description 11/08/2021 Lab Requisition [facility] Lab - Main [place] [address] [place], [place] [address] Shan Deal MD [address] [place] [address] Encounter for screening for malignant neoplasm of colon Social History Tobacco Use Types Packs/Day Years Used Date Smoking Tobacco: Never Assessed Sex and Gender Information Value Date Recorded Sex Assigned at Not on file Legal Sex Male 18:52 EST Gender Identity Not on file Sexual Orientation Not on file documented as of this encounter Plan of Treatment Not on file documented as of this encounter Procedures Procedure Name Priority Date/Time Associated Diagnosis Comments SURGICAL PATHOLOGY Today 11/06/2021 11 :55 EDT Encounter for screening for malignant neoplasm of colon documented in this encounter Results * SURGICAL PATHOLOGY (11/06/2021 11:55 EDT) Note to Patient The following pathology results have been interpreted by your pathologist and may be available to you before your health provider has had the opportunity to review them. Please allow time for your provider to receive these results and explore management options, if applicable. 11/12/2021 14:46 EDT [facility] Final Diagnosis A. RECTUM, POLYP, BIOPSY: - Hyperplastic polyp. 11/12/2021 14:46 T [facility] Attestation By the signature below, the attending physician certifies that they have 1) personally conducted a gross and/or microscopic examination of the described specimen(s), and/or personally interpreted the results of laboratory testing of the described specimen(s), and 2) personally rendered or confirmed the above diagnosis. 11/12/2021 14:46 EDT [facility] at 1446 Clinical History screening for colon ca 11/12/2021 14:46 EDT [facility] Gross Description A. Received in formalin labeled ? Don A. Singleton? and ? rectal polyp? is a single mucosal tissue fragment measuring 0.3 x 0.2 x 0.2 cm. Entirely submitted in 1 cassette. JOLENE SOTO 11/11/2021 11:00 11/12/2021 14:46 EDT [facility] Performing Lab [facility] 11/12/2021 14:46 EDT [facility] Scanned Images 11/12/2021 14:46 [facility] Tissue SPECIMEN FROM RECTUM / Unknown 11/06/2021 11:55 EDT 11/08/2021 11:56 EDT us Shan Deal MD PATHOLOGY ORDERABLES Final Result [facility] [address] [place] [address] documented in this encounter Visit Diagnoses Diagnosis Encounter for screening for malignant neoplasm of colon Special screening for malignant neoplasms, colon documented in this encounter Care Teams Agriscience Technology Instructor Relationship Specialty Start Date End Date Unknown, Provider, PCP - General 09/03/10 documented as of this encounter
--- OUTSIDE RECORDS SUMMARY | 2024-06-05 14:55 | XMS_ITS | Clinical Summary ---
Author Organization [facility] Address [address] [place] [address] Care Team Providers Care Special Services Supervisor Name Role Phone Unknown, Provider Primary Care Provider Unava ilable Social History Tobacco Use Types Packs/Day Years Used Date Smoking Tobacco: Never Assessed Sex and Gender Information Value Date Recorded Sex Assigned at Not on file Legal Sex Male 18:52 EST Gender Identity Not on file Sexual Orientation Not on file Plan of Treatment Health Maintenance Due Date Last Done Comments Hepatitis C Screen 1960 COVID-19 Vaccine (2023-25 season) 2024 RSV Immunization ( o r 60+ Years) (1 - 1-dose 75+ series) 10/19/2034 Insurance CIGNA CIGNA Care Teams Special Services Supervisor Relationship Specialty Start Date End Date Unknown, Provider, PCP - General 09/03/10
--- OUTSIDE RECORDS SUMMARY | 2024-06-05 14:55 | XMS_ITS | Encounter Summary ---
Author Organization [facility] Address [address] [place] [address] Care Team Providers Care Fish And Game Club Manager Name Role Phone Unknown, Provider Primary Care Provider Jf ilanthony Encounter Details Date Type Department Care Team (Late st Contact Info) Description 09/03/2010 Results Only [facility] Laboratory Services - [facility] ([facility] [address] [place] [address] Christ Domínguez MD [address] [place] [address] Social History Tobacco Use Types Packs/Day Years [...] Priority Date/Time Associated Diagnosis Comments SURGICAL PATHOLOGY Routine 09/03/2010 0:00 EDT documented in this encounter Results * SURGICAL PATHOLOGY (09/03/2010 0:00 EDT) Pathology Report: SURGICAL PATHOLOGY REPORT ? Reports generated via electronic interface contain original data; ? however they are lacking the format of the original report. ? Caution should be taken when reading/interpreti ng unformatted reports. ? Name: ? MITCHELL, DON A ? Accession #: ? [id number] ? : ? 1960 (Age: 49) ??M ? Collect Date: ? 09/03/2010 ? Location: ? [facility] ? Receive Date: ? 09/03/2010 ? Provider: CHRIST WALKO MD ? Copy to: GINGER FINE MD ? Final Pathologic Diagnosis: ? Colon, transverse, polyp, biopsy: ? - Benign colonic mucosa. ? Document reviewed and electronically signed by: ? KUMARASEN CORWIN MBCHB ? Report ??Date: 09/08/2010 15:17 ? By the signature above, the attending physician certifies that he/she has ? personally conducted a gross and/or microscopic examination of the described ? specimens and rendered or confirmed the above diagnosis. ? Specimen(s) Received: ? transverse colon polyp ? Clinical History: ? Colorectal screen ? Gross Description: ? Received in formalin labelled Ced Mitchell and ? transverse colon polyp ?? is a single 0.2 x 0.1 x 0.1 cm caruso-white irregular soft tissue, submitted in ? toto in a single cassette. (L. Coello)/mpl ? End of Report ? [facility] 09/03/2010 09/03/2010 18: 06 EDT us Christ Domínguez MD PATHOLOGY ORDERABLES Final Resul t Performing Organization Address City/State/[facility] Co de Phone Number [facility] [address] [place] [address] documented in this encounter Visit Diagnoses Not on filedocumented in this encounter Care Teams Fish And Game Club Manager Relationship Specialty Start Date End Date Unknown, Provider, PCP - General 09/03/10 documented as of this encounter
--- OUTSIDE RECORDS SUMMARY | 2024-06-05 14:55 | XMS_ITS | Encounter Summary ---
Author Organization [facility] Address [facility] [place] [address] Care Team Providers Care Member Of The Legislative Council Name Role Phone Lambert Gates MD Primary Care Provider Reason for Visit * Reason Comments Skin Check Focused Exam Encounter Details Date Type Department Care Team (Late st Contact Info) Description 05/09/2019 1:45 PM EST Office Visit Dermatology at [facility] [address] [place] [address] Raquel Driscoll MD [facility] [place] [address] AK (actinic keratosis); SK (seborrheic keratosis); Lentigines Social History Tobacco Use Types Packs/Day Years Used Date Smoking Tobacco: Never Smokeless Tobacco: Never Sex and Gender Information Value Date Recorded Sex Assigned at Not on file Gender Identity Not on file Sexual Orientation Not on file documented as of this encounter Patient Instructions * Patient Instructions* Ling Grimes LPN - 05/09/2019 1:45 PM EST Actinic Keratoses You have been diagnosed today with Actinic Keratosis (AK). These dry, scaly patches are considered the earliest stage in the development of skin cancer. In rare cases, an AK can progress to skin cancer. Because of this risk, AKs are usually treated. You were treated today with Liquid Nitrogen. This is the most common treatment for AKs. Liquid nitrogen is extremely cold, and freezes the surface of the skin, causing the lesion to flake off. Treatment with liquid nitrogen can be uncomfortable, but discomfort should subside after a couple of hours. The area treated will look red and irritated, and it may blister up or turn dark, then fall off. This is normal! You do not need any special treatment for the area, but you may find cold compresses and/or a lightapplication of Vaseline soothing. For best results, do not rub or pick at the healing lesion. Expected healing time is 3-4 weeks. Please contact the Dermatology clinic at [phone] if the lesion has not fully resolved after 6 weeks. documented in this encounter Progress Notes * Raquel Driscoll MD - 05/09/2019 1:45 PM EST DERMATOLOGY ESTABLISHED PATIENT CLINIC NOTE Date of service: 05/09/2019 Ced Singleton : 1960 Provider: Raquel rDiscoll MD Chief Complaint Patient presents with ??? Skin Check Focused Exam SKIN HISTORY: No personal history of Melanoma or NMSC No personal history of skin disease ?? FAMILY HISTORY: No known family history of Melanoma or NMSC No known family history of skin disease ?? 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 Allergy to Lidocaine or Epinephrine? No Pacemaker or Defibrillator? No ?? Preferred name: Ced Preferred method of contact for results: Cell or work OK to leave detailed message including biopsy results if applicable: Yes Are there any other people with whom we may discuss your care with? , Shahla Preferred pharmacy: [facility] Ced Singleton is a 58 y.o. year old male, established patient, here for deferred LN2 tx of AK on right lower eyelid, and FSE. Notes a similar scaly papule on the right roman catholic. Otherwise no skin concerns. MEDS: Current Outpatient Medications Medication Sig Dispense Refill ??? atorvastatin (LIPITOR) 40 mg Tablet Take 40 mg by mouth daily. ??? amLODIPine (NORVASC) 10 mg Tablet Take 10 mg by mouth daily. ??? PAROEX ORAL RINSE 0.12 % Mouthwash Take 0.12 mLs by mouth daily. No current facility-administered medications for this visit. ADR: No Known Allergies ROS General: feeling well Skin: denies other skin complaints EXAM General: NAD, pleasant, cooperative Skin: Patient was asked to undress to the level of his comfort. Verbalized that the provider's preferenceis for the patient to remove all clothing and that the provider will not examine areas patient elects to keep covered. Patient's decision was to remove underwear for a total body skin exam. This includes examination of the scalp, hair, face, ears, neck, chest, abdomen, back, axillae, upper and lower extremities, hands, and feet. Buttocks and genitalia were examined with patient's consent. Significant skin findings: A. 0.2-0.3cm scaly irregular pink papule(s) on the right lower eyelid/orbital rim and similar papule on the right roman catholic. Total: 2 B. 0.3-0.6cm light-brown evenly pigmented, well-demarcated macules, photodistributed C. Few stuck on papules, including right back ASSESSMENT/PLAN: A. Actinic Keratoses - Discussed nature, combined decision to perform cyrotherapy today. Procedure Note: Procedure: Destruction of lesion(s) with cryotherapy. Number: 2 Location: as above Discussed procedure and expectations including risks (including risk of hypopigmentation) and benefits. Verbal consent obtained. Frozen with LN2, 15-30 second thaw time, TWICE. There were no complications; the patient tolerated the procedure well. Post-procedure expectations and wound care were reviewed. B. Lentigines - Discussed benign nature of lesion and provided reassurance. No treatment necessary at this time. C. Seborrheic Keratoses - Etiology discussed - Patient reassured lesions are benign in nature - Explained that these are hereditary, adult onset and acquired. Follow up: 1 year, sooner if needed. A reminder placed in the system to schedule. Instructed to call with questions or concerns. I am documenting this encounter acting as the scribe for and in the presence of Dr. Driscoll: LING GRIMES LPN I performed the above scribed service and agree with the accuracy of the documentation in this encounter. Raquel Driscoll MD Patient Advocate of Dermatology, Department of Surgery [facility] documented in this encounter Plan of Treatment Upcoming Encounters Date Type Department Care Team (Late st Contact Info) Description 09/26/2024 10:30 AM EDT Office Visit Dermatology at [facility] [address] [place] [address] Raquel Driscoll MD [facility] [place] [address] documented as of this encounter Visit Diagnoses Diagnosis AK (actinic keratosis) Actinic keratosis SK (seborrheic keratosis) Other seborrheic keratosis Lentigines Other dyschromia documented in this encounter Care Teams Member Of The Legislative Council Relationship Specialty Start Date End Date Lambert Gates MD [address] [place] [address] PCP - General Internal Medicine 04/24/19 documented as of this encounter
--- OUTSIDE RECORDS SUMMARY | 2024-06-05 14:55 | XMS_ITS | Encounter Summary ---
Author Organization [facility] Address [facility] [place] [address] Care Team Providers Care Cook Starch Name Role Phone Lambert Gates MD Primary Care Provider Reason for Visit * Reason Comments Skin Check Focused Exam * Consultation (Routine) - Specialty Diagnoses / Procedures Referred By Annamaria davis Referred To Contact Dermatology Diagnoses Lesion under right eye / Question Basal cell CA Procedures Consult Lambert Gates MD [address] [place] [address] [facility] [address] [place] [address] Referral ID Status Reason Start Date Expiration Date V isits Requested Visits Authorized [id number] 04/19/2019 04/18/2020 1 1 Encounter Details Date Type Department Care Team (Late st Contact Info) Description 04/24/2019 3:45 PM EST Office Visit Dermatology at [facility] [address] [place] [address] Raquel Driscoll MD [facility] [place] [address] AK (actinic keratosis) Social History Tobacco Use Types Packs/Day Years Used Date Smoking Tobacco: Never Smokeless Tobacco: Never Sex and Gender Information Value Date Recorded Sex Assigned at Not on file Gender Identity Not on file Sexual Orientation Not on file documented as of this encounter Progress Notes * Raquel Driscoll MD - 04/24/2019 3:45 PM EST DERMATOLOGY CONSULT NOTE Date of service: 04/24/2019 Ced Singleton : 1960 Provider: Raquel Driscoll MD Chief Complaint Patient presents with ??? 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 No Pacemaker or Defibrillator? No Preferred name: Don Preferred method of contact for results: Cell or work OK to leave detailed message including biopsy results if applicable: Yes Are there any other people with whom we may discuss your care with? , Shahla Preferred pharmacy: [facility] in [facility] Ced Singleton is a 58 y.o. year old male, new patient, seen at the request of Lambert Gates MD, who instructed the patient to be seen for evaluation of above. Here today for a lesion located on theright lower eyelid. Present for the past year. Described as intermittently tender, otherwise asymptomatic. Denies any changes in size/shape/color. MEDS: No current outpatient medications on file. No current facility-administered medications for this visit. ADR: Patient has no allergy information on record. ROS General: feeling well Skin: denies other skin complaints MEDICAL HISTORY: There is no problem list on file for this patient. EXAM General: NAD, pleasant, cooperative Skin: A focused skin examination of the right lower eyelid, significant for??the following: Significant skin findings: A. Right lower eyelid: 0.2-0.3cm scaly irregular pink papule ASSESSMENT/PLAN: A. Actinic Keratosis - Patient agreed to proceed with LN2 treatment but elects to defer until after the holidays - Provided AK educational pamphlet FOLLOW-UP: RTC in 2-3 weeks for follow-up and full skin exam, or sooner if needed. Patient scheduled upon exiting clinic today. Patient instructed to call with any questions or concerns. I am documenting this encounter acting as the scribe for and in the presence of Dr. Driscoll: LING GRIMES LPN and Kim Park I performed the above scribed service and agree with the accuracy of the documentation in this encounter. Raquel Driscoll MD Captain Assistant of Dermatology, Department of Surgery [facility] cc: Lambert Gates MD documented in this encounter Plan of Treatment Upcoming Encounters Date Type Department Care Team (Late st Contact Info) Description 09/26/2024 10:30 AM EDT Office Visit Dermatology at [place] [address] [place] [address] Raquel Driscoll MD [facility] [place] [address] documented as of this encounter Visit Diagnoses Diagnosis AK (actinic keratosis) Actinic keratosis documented in this encounter Care Teams Cook Starch Relationship Specialty Start Date End Date Lambert Gates MD [address] [place] [address] PCP - General Internal Medicine 04/24/19 documented as of this encounter
--- OUTSIDE RECORDS SUMMARY | 2024-06-05 14:55 | XMS_ITS | Encounter Summary ---
Author Organization [facility] [place] [address] Care Team Providers Care Birdcage Assembler Name Role Phone Lambert Gates MD Primary Care Provider [phone] Reason for Visit * Reason Comments Skin Cancer Examination Encounter Details Date Type Department Care Team (Late st Contact Info) Description 02/28/2020 12:00 PM EDT Office Visit Dermatology at [facility] [address] [place] [address] Raquel Driscoll MD [facility] [place] [address] AK (actinic keratosis); Dermatitis Social History Tobacco Use Types Packs/Day Years Used Date Smoking Tobacco: Never Smokeless Tobacco: Never Sex and Gender Information Value Date Recorded Sex Assigned at Not on file Gender Identity Not on file Sexual Orientation Not on file documented as of this encounter Progress Notes * Raquel Driscoll MD - 02/28/2020 12:00 PM EDT DERMATOLOGY ESTABLISHED PATIENT CLINIC NOTE Date of Service: 02/28/2020 Ced Singleton : 1960 Provider: Raquel Driscoll MD Chief Complaint Patient presents with ??? Skin Cancer Examination SKIN HISTORY: No personal history of Melanoma or NMSC No personal history of skin disease ?? FAMILY HISTORY: No known family history of Melanoma or NMSC No known family history of skin disease ?? SOCIAL HISTORY/OCCUPATION: [employer] ?? Allergy to Lidocaine or Epinephrine???No Pacemaker or Defibrillator???No ?? Preferred name:??Don Preferred method of contact for results:??Cell or work OK to leave detailed message including biopsy results if applicable:??Yes Are there any other people with whom we may discuss your care with???, Shahla Preferred pharmacy:[facility] in [facility] Ced Singleton is a 59 y.o. male, established patient last seen by me on 05/09/2019. Here today for spot check with the following concerns: - dry, flaky skin; 2x sites on the lateral left and right nostril noticed about 2 months Last FSE: 05/09/2019 MEDS Current Outpatient Medications Medication Sig Dispense Refill ??? atorvastatin (LIPITOR) 40 mg Tablet Take 40 mg by mouth daily. ??? amLODIPine (NORVASC) 10 mg Tablet Take 10 mg by mouth daily. ??? PAROEX ORAL RINSE 0.12 % Mouthwash Take 0.12 mLs by mouth daily. No current facility-administered medications for this visit. ADR No Known Allergies ROS General: Feeling well Skin: Denies other skin complaints EXAM General: NAD, pleasant, cooperative Skin: A focused assessment of the face and scalp was performed Significant Skin Findings: A. Bilaterally on the outside of nostrils, under frank: Whiteish, greasy scaly overlying erythematous patches B. Right medial cheek: 1x 0.2-0.3 cm scaly, irregular, pink papule(s) ASSESSMENT/PLAN A. Seborrheic Dermatitis - Discussed etiology and therapeutic options. Rx: ketoconazole cream Twice daily as needed B.Actinic Keratoses - Explained etiology, natural history and premalignant potential of these lesions. - Discussed treatment with cryotherapy, including the risks and benefits. - Patient elects to proceed with cryotherapy today. Procedure: Destruction of lesion(s) with cryotherapy (LN2). Location(s): As noted above. Number: 1 Discussed procedure and expectations, including risks (especially hypopigmentation) and benefits. Verbal consent obtained. Frozen with LN2, 15-30 second thaw time, twice. There were no complications;patient tolerated the procedure well. Post-procedure expectations and wound care reviewed. - Instructed patient to return to clinic for re-evaluation if lesion(s) does not resolve with this treatment. Follow Up: FSE scheduled for May 2020 [] FSE [] Follow up [] Reminder placed in system [] Appointment scheduled before exiting Note initiated by: Meena Dumas RN I performed the above scribed service and agree with the accuracy of the documentation in this encounter. Raquel Driscoll MD Immigration Judge of Dermatology Department of Dermatology [facility] cc: Lambert Gates MD documented in this encounter Plan of Treatment Upcoming Encounters Date Type Department Care Team (Late st Contact Info) Description 09/26/2024 10:30 AM EDT Office Visit Dermatology at [place] [address] [place] [address] Raquel Driscoll MD [facility] [place] [address] documented as of this encounter Visit Diagnoses Diagnosis AK (actinic keratosis) Actinic keratosis Dermatitis Contact dermatitis and other eczema, due to unspecified cause documented in this encounter Care Teams Birdcage Assembler Relationship Specialty Start Date End Date Lambert Gates MD [address] [place] [address] PCP - General Internal Medicine 04/24/19 documented as of this encounter
--- OUTSIDE RECORDS SUMMARY | 2024-06-05 14:55 | XMS_ITS | Encounter Summary ---
Author Organization [facility] Address [facility] [place] [address] Care Team Providers Care Pediatric Associate Name Role Phone Lambert Gates MD Primary Care Provider [phone] Reason for Visit * Reason Comments Skin Lesion Encounter Details Date Type Department Care Team (Late st Contact Info) Description 03/14/2020 4:30 PM EST Office Visit Dermatology at [facility] [address] [place] [address] Raquel Driscoll MD [facility] [place] [place] [address] AK (actinic keratosis); Telangiectasias; Lentigo Social History Tobacco Use Types Packs/Day Years Used Date Smoking Tobacco: Never Smokeless Tobacco: Never Sex and Gender Information Value Date Recorded Sex Assigned at Not on file Gender Identity Not on file Sexual Orientation Not on file documented as of this encounter Progress Notes * Raquel Driscoll MD - 03/14/2020 4:30 PM EST DERMATOLOGY ESTABLISHED PATIENT CLINIC NOTE Date of Service: 03/14/2020 Ced Singleton : 1960 Provider: Raquel Driscoll MD Chief Complaint Patient presents with ??? 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 Procedure Screening Questions Y/N Allergies to lidocaine or epinephrine N Blood thinners N Pacemaker or defibrillator N HPI Ced Singleton is a 59 y.o. male, established patient last seen by me on 02/28/2020. Here today for evaluation of a lesion on his right cheek: - Right malar cheek, lesion present for ~1.5 weeks, picked at recently, doesn't seem to be healing,otherwise asymptomatic - Residual lesion on the right nasolabial fold; previously treated with LN2 MEDS Current Outpatient Medications Medication Sig Dispense Refill ??? ketoconazole (NIZORAL) 2 % Cream Apply twice daily to affected areas on the face as needed 60 g1 ??? atorvastatin (LIPITOR) 40 mg Tablet Take [...] Skin: A focused skin examination of the face, significant for??the following: Significant Skin Findings: A. Right nasolabial fold: 0.2-0.3cm scaly irregular pink papule [Total: 1] B. Right malar cheek: heme-crusted papule C. Left cheek: Small blood vessels that range between 0.5-1 mm. D. Left lower eyelid marign: 0.3cm brown macule ASSESSMENT/PLAN A. Residual Actinic Keratosis - [place] decision to re-treat with LN2 Procedure: Destruction of lesion(s) with cryotherapy (LN2). [...] lesion(s) does not resolve with this treatment. B. 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 D. Lentigo - Will continue to monitor Follow Up: RTC in May 2020for: [x] FSE [] Follow up [x] Reminder placed in system [] Appointment scheduled before exiting Note initiated by: GILBERT Stovall I am documenting this encounter acting as the scribe for and in the presence of Dr. Driscoll: Kim Park I performed the above scribed service and agree with the accuracy of the documentation in this encounter. Raquel Driscoll MD Airline Pilot Flight Instructor of Dermatology Department of Dermatology [facility] cc: Lambert Gates MD documented in this encounter Plan of Treatment Upcoming Encounters Date Type Department Care Team (Late st Contact Info) Description 09/26/2024 10:30 AM EDT Office Visit Dermatology at [address] [address] Raquel Driscoll MD [facility] [place] [address] documented as of this encounter Visit Diagnoses Diagnosis AK (actinic keratosis) Actinic keratosis Telangiectasias Other and unspecified capillary diseases Lentigo Other dyschromia documented in this encounter Care Teams Pediatric Associate Relationship Specialty Start Date End Date Lambert Gates MD [address] [place] [address] PCP - General Internal Medicine 04/24/19 documented as of this encounter
--- OUTSIDE RECORDS SUMMARY | 2024-06-05 14:55 | XMS_ITS | Encounter Summary ---
Author Organization [facility] Address [facility] [place] [address] Care Team Providers Care Second Rigger Name Role Phone Lambert Gates MD Primary Care Provider [phone] Reason for Referral * Consultation (Routine) - Closed Specialty Diagnoses / Procedures Referred By Annamaria davis Referred To Contact Ophthalmology Diagnoses Neoplasm of uncertain behavior Raquel Driscoll MD [facility] [place] [address] Rosibel Doran MD [facility] [place] [address] Referral ID Status Reason Start Date Expiration Date V isits Requested Visits Authorized [id number] Closed Consult, Test & Treat 05/16/2020 05/16/2021 1 1 Reason for Visit * Reason Comments Skin Cancer Examination Encounter Details Date Type Department Care Team (Late st Contact Info) Description 05/15/2020 9:30 AM EST Office Visit Dermatology at [facility] [address] [place] [address] Raquel Driscoll MD [facility] [place] [address] Skin lesion; Actinic keratoses; Eczema, unspecified type; Seborrheic keratoses; Lentigines; History of seborrheic dermatitis; Neoplasm of uncertain behavior on left lower eyelid margin Social History Tobacco Use Types Packs/Day Years Used Date Smoking Tobacco: Never Smokeless Tobacco: Never Sex and Gender Information Value Date Recorded Sex Assigned at Not on file Gender Identity Not on file Sexual Orientation Not on file documented as of this encounter Progress Notes * Raquel Driscoll MD - 05/15/2020 9:30 AM EST Images from the original note were not included. DERMATOLOGY ESTABLISHED PATIENT CLINIC NOTE Date of Service: 05/15/2020 Ced Singleton : 1960 Provider: Raquel Driscoll MD Chief Complaint Patient presents with ??? Skin Cancer Examination SKIN HX Personal History Y/N Date, location, treatment Melanoma No DN No SCC No BCC No AK or field cancerization therapy Yes LN2 Immunosuppression or malignancy No Blistering sunburns or tanning bed use No Other (i.e., eczema, psoriasis) No Relevant social history Insurance provider Family History Y/N Parents, siblings, children Melanoma No NMSC No Other No Patient Preferences Preferred name Don Preferred contact method [] Home [x] Cell [] myD-H [x] Other: Work Permission to leave detailed message including results [x] Yes [] No Permission to discuss care with (Shahla) Preferred pharmacy [facility] in [place], [place] Procedure Screening Questions Y/N Allergies to lidocaine or epinephrine No Blood thinners No Pacemaker or defibrillator No HPI Ced Singleton is a 59 y.o. male, established patient last seen by me on 03/14/2020. Here today for a full skin exam with the following concerns: - Three lesions on the right leg: a provider at his local health center said they could be ringwormand gave him clotrimazole, which has not helped. The areas occasionally burn. They sometimes almostdisappear but recur. Last FSE: N/A MEDS Current Outpatient Medications Medication Sig Dispense [...] of his comfort. Verbalized that the provider's preference is for the patient to remove all clothing and that the provider will not examine areas patient elects to keep covered. Patient's decision was to remove underwear for a total body skin exam. This includes examination of the scalp, hair, face, ears, neck, chest, abdomen, back, axillae, upper and lower extremities, hands, and feet. Genitalia were not examined. Buttocks were examined with patient's consent. Areas of face under mask examined (COVID-19): [x] Yes [] No Significant Skin Findings: A. Left lower eyelid margin: 0.5 cm light caruso macule with a eccentric 0.3 cm dark brown macule within. (Figure 1) Figure 1 Photo(s) taken and charted with patient's verbal consent. B. Left ear: 0.2-0.3 cm scaly, irregular, pink papule. [Total: 1] C. Right medial leg x 3: 2 cm nummular, eczematous plaques. D. Trunk and extremities: Scattered 0.4-0.6 cm pink-brown papules/plaques with waxy, stuck-on appearance. E. Sun-exposed areas of the trunk and extremities: Scattered 0.3-0.6 cm light- brown, evenly pigmented, well-demarcated macules. F. Face: Clear on exam. ASSESSMENT/PLAN A. Lentigo R/O LM - Given location, will refer to Dr. Doran in Oculoplastics for biopsy. B. Actinic Keratosis - Explained etiology, natural history and premalignant potential of these lesions. - Discussed treatment with cryotherapy, including the risks and benefits. - Patient elects to proceed with cryotherapy today. Procedure: Destruction of lesion with cryotherapy (LN2). Location: As noted above. Number: 1 Discussed procedure and expectations, including risks (especially hypopigmentation) and benefits. Verbal consent obtained. Frozen with LN2, 15-30 second thaw time, twice. There were no complications;patient tolerated the procedure well. Post-procedure expectations and wound care reviewed. - Instructed patient to return to clinic for re-evaluation if lesion does not resolve with this treatment. C. Eczema - Start Rx: triamcinolone (Kenalog) 0.1% cream: Apply topically to affected area(s) on the right leg twice daily for up to 2 weeks. Take 1 week off and then repeat cycle as needed. D. Seborrheic Keratoses - Explained that these are hereditary and adult-acquired. Reassured patient of benign nature. No treatment necessary. - Advised patient to call if they become inflamed or irritated. E. Lentigines - Discussed benign nature of lesions and provided reassurance. No treatment necessary at this time. - Discussed nature of sun-induced photo-aging and skin cancers. Advised sun avoidance, protective clothing, and use of SPF 30+ broad-spectrum sunscreens. - Instructed patient to observe closely for skin damage/changes and call if such occur. F. History of Seborrheic Dermatitis - Can continue Rx ketoconazole cream as needed. Patient has prescription at home. Follow Up: RTC in 1 year for: [x] FSE [] Follow up [x] Reminder placed in system [] Appointment scheduled before exiting Note initiated by: GILBERT Tejada I am documenting this encounter acting as the scribe for and in the presence of Dr. Driscoll: Meena Casey I performed the above scribed service and agree with the accuracy of the documentation in this encounter. Raquel Driscoll MD Computer Forensic Examiner of Dermatology Department of Dermatology [facility] cc: Lambert Gates MD documented in this encounter Plan of Treatment Upcoming Encounters Date Type Department Care Team (Late st Contact Info) Description 09/26/2024 10:30 AM EDT Office Visit Dermatology at [facility] [address] [place] [address] Raquel Driscoll MD [facility] [place] [address] Scheduled Referrals Name Type Priority Associated Diagnoses Order Schedule Referral to Ophthalmology Outpatient Referral Routine Neoplasm of uncertain behavior on left lower eyelid margin Ordered: 05/16/2020 documented as of this encounter Visit Diagnoses Diagnosis Skin lesion Unspecified disorder of skin and subcutaneous tissue Actinic keratoses Actinic keratosis Eczema, unspecified type Seborrheic keratoses Lentigines Other dyschromia History of seborrheic dermatitis Personal history of diseases of skin and subcutaneous tissue Neoplasm of uncertain behavior on left lower eyelid margin Neoplasm of uncertain behavior, site unspecified documented in this encounter Care Teams Second Rigger Relationship Specialty Start Date End Date Lambert Gates MD [address] [address] PCP - General Internal Medicine 04/24/19 documented as of this encounter
--- OUTSIDE RECORDS SUMMARY | 2024-06-05 14:55 | XMS_ITS | Referral Summary ---
Author Organization [facility] Address [address] [place] [address] Care Team Providers Care Tuber Machine Operator Helper Name Role Phone Unknown, Provider Primary Care Provider Unava ilable Social History Tobacco Use Types Packs/Day Years Used Date Smoking Tobacco: Never Assessed Sex and Gender Information Value Date Recorded Sex Assigned at Not on file Legal Sex Male 18:52 EST Gender Identity Not on file Sexual Orientation Not on file Plan of Treatment Not on file Insurance [employer] Care Teams Tuber Machine Operator Helper Relationship Specialty Start Date End Date Unknown, Provider, PCP - General 09/03/10
[2024-06-05 16:17] LABS: ALT 22 U/L (16-63); AST 17 U/L (15-37); Albumin 4.4 g/dL (3.4-5.0); Alkaline Phosphatase 97 U/L (46-116); Anion Gap 11.2 mmol/L (3-11); BUN 18 mg/dL (7-18); Bilirubin, Total 0.76 mg/dL (0.2-1.0); CO2 28.8 mmol/L (21.0-32.0); CREATININE 1.1 mg/dL (0.70-1.30); Calcium 9.8 mg/dL (8.5-10.1); Calculated LDL 119 mg/dL (<100); Chloride 101 mmol/L (98-107); Cholesterol 199 mg/dL (<200); Estimated GFR 74.96 (mL/min/1.73m2); Glucose 116 mg/dL (74-106); HDL Cholesterol 61 mg/dL (40-60); Potassium 3.7 mmol/L (3.5-5.1); Sodium 141 mmol/L (136-145); Total Protein 7.8 g/dL (6.4-8.2); Triglyceride 95 mg/dL (<150)
== END 2024-06-05 14:49 | disposition home or self-care (01) ==
LOC: NCHCN 14:48
PROVIDERS: PCP Family Medicine; Visit Provider Family Medicine
DX: I10 Essential (primary) hypertension (principal)
CPT/HCPCS: 80053; 80061

== ENCOUNTER 2024-11-17 14:14 | Outpatient (REF) | payer OTHER, SELFPAY ==
[2024-11-17 22:39] LABS: PSA, Screening 1.4 ng/mL (<=4.5)
== END 2024-11-17 14:15 | disposition home or self-care (01) ==
LOC: NCHCN 14:14
PROVIDERS: PCP Family Medicine; Visit Provider Nurse Practitioner Family
DX: E66.9 Obesity, unspecified (principal); Z12.5 Encounter for screening for malignant neoplasm of prostate
CPT/HCPCS: 84153; 83036

== ENCOUNTER 2024-11-22 18:42 | Outpatient (REF) | payer OTHER, SELFPAY ==
[2024-11-22 23:10] LABS: Hemoglobin A1C 5.4 % (<5.7)
== END 2024-11-22 18:43 | disposition home or self-care (01) ==
LOC: NCHCN 18:42
PROVIDERS: PCP Family Medicine; Visit Provider Family Medicine
DX: E66.9 Obesity, unspecified (principal)
CPT/HCPCS: 83036

== ENCOUNTER → 2025-03-15 01:53 | Outpatient (CLI) | payer OTHER, SELFPAY ==
--- NOTE | 2025-03-15 07:15 | DI.RAD_ITS ---
Exam(s) XR FOOT RT COMPLETE EXAM: XR FOOT RT COMPLETE CLINICAL HISTORY: Right foot pain,m79.671. TECHNIQUE: 2D digital imaging was performed. COMPARISON: CR XR FOOT LT COMPLETE from 03/15/2025 FINDINGS: 3 views No evidence of acute fracture or diastasis of the Lisfranc joint. Some calcification is noted in the main Lisfranc joint space between the medial base of the 2nd metatarsal and distal lateral aspect of the medial cuneiform bone. This, however, appears smaller than on the opposite side and may be an accessory ossicle at this level which is known as os intermetatarsale. There is no offset of the cortices of this joint. There are mild degenerative changes in the other tarsometatarsal joints. Also mild subluxation at the 2nd metatarsophalangeal joint, similar to the opposite side. There is also some degenerative change at the level of the interphalangeal joint of the great toe. Hammertoe deformities are noted. More proximally in the medial aspect of the foot there is a prominent navicular tuberosity noted, similar on both sides. However, on this right side there is some soft tissue density in the medial aspect the foot just proximal to the navicular tuberosity. There is no soft tissue calcification at this level. There is no significant hindfoot valgus.. There is mild pes planus. Bone density normal. No osseous lesions. IMPRESSION: As above. DATA REPOSITORY: RADIATION DOSE DELIVERED:
--- NOTE | 2025-03-15 07:15 | DI.RAD_ITS ---
Exam(s) XR FOOT LT COMPLETE EXAM: XR FOOT LT COMPLETE CLINICAL HISTORY: Left foot pain,m79.672. TECHNIQUE: 2D digital imaging was performed. COMPARISON: CR XR FOOT RT COMPLETE from 03/15/2025 FINDINGS: 3 views No evidence of acute fracture or diastasis of the Lisfranc joint. There is mild medial subluxation of the base of the proximal phalanx of the 2nd toe relative to the 2nd metatarsal head. There is no evidence of avascular necrosis nor Freiberg's infraction.. There are minimal degenerative changes in the great toe metatarsophalangeal joint. There is in addition bone density in the region of the main Lisfranc ligament between the medial base of the 2nd metatarsal and lateral aspect of the distal medial cuneiform. There is no offset of the articular surfaces of this articulation. There are mild degenerative changes in the other tarsometatarsal joints. There is pes planus. No evidence of hindfoot valgus. Vascular calcifications noted in the posterior tibial artery at the level the ankle. IMPRESSION: There is prominent calcification in the main Lisfranc joint which appears to be along the course of the main Lisfranc ligament between the medial base of the 2nd metatarsal in the lateral aspect of the distal medial cuneiform bone. Correlation with any prior injury at this level recommended. Other findings as above. DATA REPOSITORY: RADIATION DOSE DELIVERED:
== END ==
PROVIDERS: PCP Family Medicine; Visit Provider Podiatrist
DX: M79.672 Pain in left foot (principal); M79.671 Pain in right foot
CPT/HCPCS: 73630